=== PATIENT | male | born 1980 | race Caucasian/White ===

== ENCOUNTER 2022-04-13 11:04 | Outpatient (CLI) | payer OTHER, SELFPAY ==
--- OUTSIDE RECORDS SUMMARY | 2022-04-13 11:06 | XMS_ITS | Encounter Summary ---
:1980 Author Organization [employer] Address [address] [place] [address] Care Team Providers Name Role Phone No Primary/Referring, Phy Primary Care Provider Unavailable Reason for Visit Reason Onset Date Comments Refill 12/18/2015 CITALOPRAM, BUPROPIO N Encounter Details Date Type Department Care Team Description 12/18/2015 Refill [facility] Dayana Tomas MD Refill (CITALOPRAM, [address] [facility] BUPROPION) [place], [place] [address] [place], [place] [phone] (Wo rk) Social History Tobacco Use Types Packs/Day Years Used Date Smoking Tobacco: Former Smokeless Tobacco: Former Qu it: 07/16/2011 Alcohol Use Standard Drinks/Week Comments Yes 0 (1 standard drink = 0.6 oz pure alcoho l) Sex Assigned at Date Recorded Not on file documented as of this encounter Nursing Notes Carmen Perry RN - 12/19/2015 9:51 AM CDT 1) will send to provider to review as patient has not f/u as requested. OK for refill? Carmen Perry RN 12/19/2015, 9:51 AM Interface, Out Surescripts Prov Query - 12/18/2015 6:58 PM CDT buPROPion (AKA WELLBUTRIN XL) 300 MG 24 hour release tablet Protocol: Antidepressants and Antianxiety -> Refill x 3 months (courtesy refill. overdue for an office visit) Last qualifying visit: 10/03/2014 (in Family Practice) Next scheduled visit: None Last ordered: 05/31/2015 (201 days ago) QTY: 90, Refills: 1, Sig: take 1 tablet by mouth every day (changed but equivalent) Age: 35 Powered by [employer], Reference: [id number], 12/18/2015 6:58:09 PM CDT, Pool: STEPHANIE CASIANO RN ([id number]) citalopram (AKA CELEXA) 20 MG tablet Protocol: Antidepressants and Antianxiety -> Refill x 3 months (courtesy refill. overdue for an office visit) Last qualifying visit: 10/03/2014 (in Family Practice) Next scheduled visit: None Last ordered: 11/29/2015 (19 days ago) QTY: 15, Refills: 0, Sig: take 1 tab by mouth daily. to be seen by new primary md, already notified in february. (unchanged) Age: 35 Powered by [employer], Reference: [id number], 12/18/2015 6:58:09 PM CDT, Pool: STEPHANIE CASIANO RN ([id number]) Afsaneh Ware - 12/18/2015 6:57 PM CDT PATIENT REQUESTING 90 DAYS SUPPLY documented in this encounter Plan of Treatment Not on filedocumented as of this encounter Visit Diagnoses Not on filedocumented in this encounter Care Teams Inside Account Executive Relationship Specialty Start Date End Date No Primary/Referring, Jocelyny PCP - General 05/03/15 documented as of this encounter
--- OUTSIDE RECORDS SUMMARY | 2022-04-13 11:06 | XMS_ITS | Encounter Summary ---
:1980 Author Organization [employer] Address [address] [place] [address] Care Team Providers Name Role Phone Unassigned, Provider Primary Care Provider Unavailable Reason for Visit Reason Comments Refill Encounter Details Date Type Department Care Team Description 02/25/[address] [facility] [place] Malave MD Refill [address] [facility] [address] [place], [place] [address] [address] [id number] [phone] [place] [address] Social History Tobacco Use Types Packs/Day Years Used Date Smoking Tobacco: Former Smokeless Tobacco: Former Qu it: 07/16/2011 Alcohol Use Standard Drinks/Week Comments Yes 0 (1 standard drink = 0.6 oz pure alcoho l) Sex Assigned at Date Recorded Not on file documented as of this encounter Nursing Notes Susan Soto LPN - 02/25/2015 8:26 AM CDT unassigned; will route to Dr. Thom GUPTA. Thank you, Susan Soto LPN 02/25/2015, 8:27 AM Interface, Out Surescripts Prov Query - 02/25/2015 7:17 AM CDT buPROPion (AKA WELLBUTRIN XL) 300 MG 24 hour release tablet [Pharmacy Med Name: BUPROPION-XL 300MG TAB 24HR] - VIOLATION: Medications in this protocol cannot be delegated. - PROTOCOL: Antidepressants - LAST QUALIFYING VISIT IN FAMILY PRACTICE: 10/03/2014 - NEXT SCHEDULED VISIT: None - LAST REFILLED ON: 11/26/2014, QTY: 90, Refills: 0, Sig: take one tablet by mouth every day (unchanged) Powered by [employer], Reference: [id number], 02/25/2015 7:17:13 AM CDT, Pool: STEPHANIE CASIANO RN ([id number]) documented in this encounter Plan of Treatment Not on filedocumented as of this encounter Visit Diagnoses Not on filedocumented in this encounter Care Teams Payroll Supervisor Relationship Specialty Start Date End Date Unassigned, Provider PCP - General Unknown Physician 11/26/14 05/02/15 [address] [place] [address] documented as of this encounter
--- OUTSIDE RECORDS SUMMARY | 2022-04-13 11:06 | XMS_ITS | Encounter Summary ---
:1980 Author Organization [employer] Address [address], [place] [address] Care Team Providers Name Role Phone Ronan Goel MD Primary Care Provider [phone] Reason for Visit Reason Comments Refill amLODIPine (NORVASC) 5 MG ta blet [Pharmacy Med Name: AMLODIPINE BESYLATE 5MG TABLETS] Encounter Details Date Type Department Care Team Description 04/28/2020 Refill [facility] Suhas Lyon MD Refill (amLODIPine Practice [address] (NORVASC) 5 MG tablet [address] [place] [address] [Pharmacy Med Name: [place], [place] [address] AMLODIPINE BESYLATE 5MG [phone] TABLETS]) Social History Tobacco Use Types Packs/Day Years Used Date Smoking Tobacco: Former Smokeless Tobacco: Former Qu it: 07/16/2011 Alcohol Use Standard Drinks/Week Comments Yes 0 (1 standard drink = 0.6 oz pure alcoho l) Sex Assigned at Date Recorded Not on file documented as of this encounter Nursing Notes Interface, Out Surescripts Prov Query - 04/28/2020 11:15 AM CDT amLODIPine (NORVASC) 5 MG tablet [Pharmacy Med Name: AMLODIPINE BESYLATE 5MG TABLETS] Miscellaneous - 12 Month Visit -> An office visit is overdue (performed 20 months ago, required every 12 months). Last qualifying visit: 09/06/2018 (with SUHAS LYON) (A more recent visit (in Family Practice with RONAN GOEL) was found) Next scheduled visit: None Last ordered by SUHAS LYON S: 03/27/2020 (32 days ago) QTY: 30, Refills: 0, Sig: take 1 tablet by mouth daily. (unchanged) Powered by [employer], Reference: [id number], 04/28/2020 11:15:38 AM CDT, Pool: STEPHANIE CASIANO RN ([id number]) documented in this encounter Plan of Treatment Not on filedocumented as of this encounter Visit Diagnoses Not on filedocumented in this encounter Care Teams Plasterer Rough Relationship Specialty Start Date End Date Ronan Goel MD PCP - General Family Practice 04/13/18 06/12/20 [phone] (Work) documented as of this encounter
--- OUTSIDE RECORDS SUMMARY | 2022-04-13 11:06 | XMS_ITS | Encounter Summary ---
:1980 Author Organization [facility] Address [address] [place] [address] Care Team Providers Name Role Phone No Primary/Referring, Phy Primary Care Provider Unavailable Reason for Visit Reason Comments QUESTIONS, GENERAL Encounter Details Date Type Department Care Team Description 03/17/2016 [facility] QUESTIONS, GENERAL [address] [place], [place] [address] [place], [place] [phone] (Wo rk) Social History Tobacco Use Types Packs/Day Years Used Date Smoking Tobacco: Former Smokeless Tobacco: Former Qu it: 07/16/2011 Alcohol Use Standard Drinks/Week Comments Yes 0 (1 standard drink = 0.6 oz pure alcoho l) Sex Assigned at Date Recorded Not on file documented as of this encounter Progress Notes Gabriel Christensen MD - 03/17/2016 3:49 PM CDT Addended by: GABRIEL CHRISTENSEN on: 03/17/2016 03:49 PM Modules accepted: Orders, Medications documented in this encounter Nursing Notes Gabriel Christensen MD - 03/17/2016 3:47 PM CDT Patient looking for an alternative to Zantac and omeprazole. The omeprazole does help with the symptoms but does not want the long-term consequences of being on it. Told him we could try Pepcid and seeif that helps otherwise we may have to do a PPI. Anna Urbano CMA - 03/17/2016 3:33 PM CDT I spoke to pt and he would like to take something other than Zantac 2x per day for his acid reflux. Pt states that the Zantac wasn't working for him at all so he went back to the omeprazole, which works great, but he doesn't want to take it care home. Anna Urbano CMA 03/17/2016, 3:36 PM Mag Rojas - 03/17/2016 1:35 PM CDT Patient would like to discuss his medication Zantac ~ did not elaborate.OK to leave detail message. Mag Rojas documented in this encounter Plan of Treatment Not on filedocumented as of this encounter Visit Diagnoses Not on filedocumented in this encounter Care Teams Plastic Bubble Packer Relationship Specialty Start Date End Date No Primary/Referring, Phy PCP - General 05/03/15 documented as of this encounter
--- OUTSIDE RECORDS SUMMARY | 2022-04-13 11:06 | XMS_ITS | Encounter Summary ---
:1980 Author Organization [employer] Address [address] [place] [address] Care Team Providers Name Role Phone No Primary/Referring, Phy Primary Care Provider Unavailable Encounter Details Date Type Department Care Team Description 12/18/2015 Notes/Orders [facility] No Encounter for long-term [address] Primary/Referrin (current) use of [place], [place] [address] g, Phy medications (Primary [phone] Dx) Social History Tobacco Use Types Packs/Day Years Used Date Smoking Tobacco: Former Smokeless Tobacco: Former Qu it: 07/16/2011 Alcohol Use Standard Drinks/Week Comments Yes 0 (1 standard drink = 0.6 oz pure alcoho l) Sex Assigned at Date Recorded Not on file documented as of this encounter Progress Notes Niall Ware CMA - 12/19/2015 8:58 AM CDT Pt notified. Niall Ware CMA 12/19/2015, 8:58 AM documented in this encounter Nursing Notes Interface, Out Surescripts Prov Query - 12/18/2015 6:58 PM CDT SCHEDULE THE FOLLOWING: - OFFICE VISIT BY: Now (Due as of 09/28/2015 for multiple medications including citalopram (AKA CELEXA) 20 MG tablet) - LAST QUALIFYING VISIT IN FAMILY PRACTICE: 10/03/2014 - NEXT SCHEDULED VISIT: None - NEXT LAB APPOINTMENT: None We recently received a refill request on one of your medications. While reviewing your chart, we noticed that you are going to be due for a visit with your provider within the next 3 months. You can schedule your appointment online at [employer] or by calling the appointment center at the phone number listed above. Thank you for choosing [facility]. The [facility] Nurses Powered by [employer], Reference: [id number], 12/18/2015 6:58:09 PM CDT, Pool: STEPHANIE CASIANO RN ([id number]) documented in this encounter Plan of Treatment Not on filedocumented as of this encounter Visit Diagnoses Diagnosis Encounter for long-term (current) use of medications - Primary Encounter for long-term (current) use of other medications documented in this encounter Care Teams Coal Mine Inspector Relationship Specialty Start Date End Date No Primary/Referring, Sahra PCP - General 05/03/15 documented as of this encounter
--- OUTSIDE RECORDS SUMMARY | 2022-04-13 11:06 | XMS_ITS | Encounter Summary ---
:1980 Author Organization [employer] Address [address] [place] [address] Care Team Providers Name Role Phone Ronan Goel MD Primary Care Provider Reason for Visit Reason Comments Refill buPROPion (WELLBUTRIN XL) 30 0 MG 24 hour release tablet [Pharmacy Med Name: BUPROPION XL 300MG TABLETS]; citalopram (CELEXA) 20 MG tablet [Pharmacy Med Name: CITALOPRAM 20MG TABLET S] Encounter Details Date Type Department Care Team Description 08/19/2018 Refill [facility] Ronan Goel, Refill (buPROPion Practice (WELLBUTRIN XL) 300 MG [address] 24 hour release tablet [place], [place] [address] [place] [address] [Pharmacy Med Name: [phone] (Wo rk) BUPROPION XL 300MG TABLETS]; citalopram (CELEXA) 20 MG tablet [Pharmacy Med N jackson: CITALOPRAM 20MG TABLETS]) Social History Tobacco Use Types Packs/Day Years Used Date Smoking Tobacco: Former Smokeless Tobacco: Former Qu it: 07/16/2011 Alcohol Use Standard Drinks/Week Comments Yes 0 (1 standard drink = 0.6 oz pure alcoho l) Sex Assigned at Date Recorded Not on file documented as of this encounter Nursing Notes Dagoberto Freeman R - 08/22/2018 1:27 PM CST Medication Refill - Overdue Visit Called patient, was: Unable to reach patient 1st call attempted. Left message to call back. Dagoberto Freeman ULTING TECHNICAL MANAGER Annalisa Murray RN - 08/22/2018 9:36 AM CST Further Assistance Needed on Refill from Cinnamon Grinder Patient is overdue for Office visit. Please call patient to schedule a Office Visit and document using .RAUDEL. After attempting to schedule patient: If appointment scheduled: Please route to: Primary Care: Refill boilerhouse mechanic Specialty Care: Refill boilerhouse mechanic/Care Team Pool If unable to schedule appointment: Please route to: Clinician/Care Team Pool Requested Prescriptions Pending Prescriptions Disp Refills ??? buPROPion (WELLBUTRIN XL) 300 MG 24 hour release tablet [Pharmacy Med Name: BUPROPION XL 300MG TABLETS] 90 Tablet 0 Sig: TAKE 1 TABLET BY MOUTH DAILY ??? citalopram (CELEXA) 20 MG tablet [Pharmacy Med Name: CITALOPRAM 20MG TABLETS] 90 Tablet 0 Sig: TAKE 1 TABLET BY MOUTH DAILY Annalisa Murray RN 08/22/2018, 9:36 AM ULTING TECHNICAL MANAGER Interface, Out Surescripts Prov Query - 08/19/2018 10:20 AM CST buPROPion (WELLBUTRIN XL) 300 MG 24 hour release tablet [Pharmacy Med Name: BUPROPION XL 300MG TABLETS] Antidepressants and Antianxiety -> An office visit is overdue (performed over 16 months ago, required every 12 months). Last qualifying visit: 04/21/2017 (in [facility]) Next scheduled visit: None Last ordered by RONAN GOEL A: 05/19/2018 (92 days ago) QTY: 90, Refills: 0, Sig: take 1 tablet by mouth daily (unchanged) Age: 37 Powered by [employer], Reference: [id number], 08/19/2018 10:20:50 AM Rohan RÍOS: STEPHANIE CASIANO RN ([id number]) citalopram (CELEXA) 20 MG tablet [Pharmacy Med Name: CITALOPRAM 20MG TABLETS] Antidepressants and Antianxiety -> An office visit is overdue (performed over 16 months ago, required every 12 months). Last qualifying visit: 04/21/2017 (in [facility]) Next scheduled visit: None Last ordered by RONAN GOEL: 05/19/2018 (92 days ago) QTY: 90, Refills: 0, Sig: take 1 tablet by mouth daily (unchanged) Age: 37 Powered by [facility], Reference: [id number], 08/19/2018 10:20:50 AM Rohan RÍOS: STEPHANIE CASIANO RN ([id number]) ULTING TECHNICAL MANAGER documented in this encounter Plan of Treatment Not on filedocumented as of this encounter Visit Diagnoses Not on filedocumented in this encounter Care Teams Investigator Operator Relationship Specialty Start Date End Date Ronan Goel MD PCP - General Family Practice 04/13/18 06/12/20 documented as of this encounter
--- OUTSIDE RECORDS SUMMARY | 2022-04-13 11:06 | XMS_ITS | Encounter Summary ---
:1980 Author Organization [employer] Address [address] [place] [address] Care Team Providers Name Role Phone No Primary/Referring, Phy Primary Care Provider Unavailable Reason for Visit Reason Comments Refill Encounter Details Date Type Department Care Team Description 05/31/2015 Refill [facility] Dunham MD Refill [address] [place], [place] [address] [place] [address] [phone] (Wo rk) Social History Tobacco Use Types Packs/Day Years Used Date Smoking Tobacco: Former Smokeless Tobacco: Former Qu it: 07/16/2011 Alcohol Use Standard Drinks/Week Comments Yes 0 (1 standard drink = 0.6 oz pure alcoho l) Sex Assigned at Date Recorded Not on file documented as of this encounter Nursing Notes Thao Castillo RN - 05/31/2015 11:11 AM CDT per standing order Thao Castillo RN Interface, Out Surescripts Prov Query - 05/31/2015 11:04 AM CDT buPROPion (AKA WELLBUTRIN XL) 300 MG 24 hour release tablet [Pharmacy Med Name: BUPROPION XL 300MG TABLETS] - REFILL: 6 months - PROTOCOL: Antidepressants and Antianxiety - RATIONALE: This refill should last until the patient is due for an office visit. - LAST QUALIFYING VISIT IN FAMILY PRACTICE: 10/03/2014 - NEXT SCHEDULED VISIT: None - LAST REFILLED ON: 02/25/2015, QTY: 90, Refills: 0, Sig: take one tablet by mouth every day (changed but equivalent) - Age: 34.0 Powered by [employer], Reference: [id number], 05/31/2015 11:04:14 AM CDT, Pool: STEPHANIE CASIANO RN ([id number]) documented in this encounter Plan of Treatment Not on filedocumented as of this encounter Visit Diagnoses Not on filedocumented in this encounter Care Teams Brand Marketing Specialist Relationship Specialty Start Date End Date No Primary/Referring, Sahra PCP - General 05/03/15 documented as of this encounter
--- OUTSIDE RECORDS SUMMARY | 2022-04-13 11:06 | XMS_ITS | Encounter Summary ---
:1980 Author Organization [facility] Address [address] [place] [address] Care Team Providers Name Role Phone Suhas [place] MD Primary Care Provider Encounter Details Date Type Department Care Team Description 12/16/2016 Refill Order [facility] ctice No Primary/Referring, [address] [place], [place] [address] Social History Tobacco Use Types Packs/Day Years Used Date Smoking Tobacco: Former Smokeless Tobacco: Former Qu it: 07/16/2011 Alcohol Use Standard Drinks/Week Comments Yes 0 (1 standard drink = 0.6 oz pure alcoho l) Sex Assigned at Date Recorded Not on file documented as of this encounter Plan of Treatment Not on filedocumented as of this encounter Visit Diagnoses Diagnosis Encounter for long-term (current) use of medications - Primary Encounter for long-term (current) use of other medications documented in this encounter Care Teams Animal Technician Relationship Specialty Start Date End Date Suhas Lyon MD PCP - General 06/13/20 [address] [place] [address] documented as of this encounter
--- OUTSIDE RECORDS SUMMARY | 2022-04-13 11:06 | XMS_ITS | Encounter Summary ---
:1980 Author Organization [employer] Address [address] [place] [address] Care Team Providers Name Role Phone Ronan Goel MD Primary Care Provider [phone] Reason for Visit Reason Comments Refill buPROPion (WELLBUTRIN XL) 30 0 MG 24 hour release tablet [Pharmacy Med Name: BUPROPION XL 300MG TABLETS]; citalopram (CELEXA) 20 MG tablet [Pharmacy Med Name: CITALOPRAM 20MG TABLET S] Encounter Details Date Type Department Care Team Description 05/18/2018 Refill [facility] Ronan Goel, Refill (buPROPion Practice (WELLBUTRIN XL) 300 MG [address] 24 hour release tablet [place], [place] [address] [place] [address] [Pharmacy Med Name: [phone] (Wo rk) BUPROPION XL 300MG TABLETS]; citalopram [...] documented as of this encounter Nursing Notes Giselle Mauro RN - 05/19/2018 9:12 AM CDT Per standing order Giselle Mauro RN Interface, Out Surescripts Prov Query - 05/18/2018 10:31 AM CDT buPROPion (WELLBUTRIN XL) 300 MG 24 hour release tablet [Pharmacy Med Name: BUPROPION XL 300MG TABLETS] Antidepressants and Antianxiety -> Refill x 3 months (courtesy refill. overdue for an office visit) Last [facility]: [facility] Next scheduled visit: None Last ordered by RONAN GOEL A: 04/13/2018 (35 days ago) QTY: 30, Refills: 0, Sig: take 1 tablet by mouth daily (unchanged) Age: 37 Powered by [facility], Reference: [id number], 05/18/2018 10:31:36 AM CDT, Pool: STEPHANIE CASIANO RN ([id number]) citalopram (CELEXA) 20 MG tablet [Pharmacy Med Name: CITALOPRAM 20MG TABLETS] Antidepressants and Antianxiety -> Refill x 3 months (courtesy refill. overdue for an office visit) Last qualifying visit: [facility]/2017 [facility] Next scheduled visit: None Last ordered by RONAN GOEL A: 04/13/2018 (35 days ago) QTY: 30, Refills: 0, Sig: take 1 tablet by mouth daily (unchanged) Age: 37 Powered by [employer], Reference: [id number], 05/18/2018 10:31:36 AM CDT, Pool: STEPHANIE CASIANO RN ([id number]) documented in this encounter Plan of Treatment Not on filedocumented as of this encounter Visit Diagnoses Not on filedocumented in this encounter Care Teams Dairy Husbandman Relationship Specialty Start Date End Date Ronan Goel MD PCP - General Family Practice 04/13/18 06/12/20 [phone] (work) documented as of this encounter
--- OUTSIDE RECORDS SUMMARY | 2022-04-13 11:06 | XMS_ITS | Encounter Summary ---
:1980 Author Organization [employer] Address [address], [place] [address] Care Team Providers Name Role Phone Unassigned, Provider Primary Care Provider Unavailable Reason for Visit Reason Comments Refill Encounter Details Date Type Department Care Team Description [facility] [address] [place], [place] [address] Social History Tobacco Use Types Packs/Day Years Used Date Smoking Tobacco: Former Smokeless Tobacco: Former Qu it: 07/16/2011 Alcohol Use Standard Drinks/Week Comments Yes 0 (1 standard drink = 0.6 oz pure alcoho l) Sex Assigned at Date Recorded Not on file documented as of this encounter Nursing Notes Elyssa Ware RN - 11/26/2014 3:12 PM CDT Informed patient of Dr. Krishnamurthy's message below. Informed patient Ramin is no longer with [facility], advised patient to schedule appt with another primary care provider beginning of February to establish care with a new provider, follow up, and get refills. Patient verbalized understanding and agrees with plan. Elyssa Ware RN 11/26/2014, 3:14 PM [place] Krishnamurthy MD - 11/26/2014 12:42 PM CDT Patient on behavioral health, medication needs to be seen every six months. Last visit was in August. History be seen in February. Prescription refilled to last through February Please notify the patient Susan Soto LPN - 11/26/2014 8:25 AM CDT unassigned; will route to Dr. Yessy GUPTA. Thank you, Susan Soto LPN 11/26/2014, 8:25 AM Interface, Out [employer] Query - 11/26/2014 8:23 AM CDT buPROPion (AKA WELLBUTRIN XL) 300 MG 24 hour release tablet [Pharmacy Med Name: BUPROPION-XL 300MG TAB 24HR] - VIOLATION: Medications in this protocol cannot be delegated. - PROTOCOL: Antidepressants - LAST QUALIFYING VISIT IN FAMILY PRACTICE: 10/03/2014 - NEXT SCHEDULED VISIT: None - LAST REFILLED ON: 2013, QTY: 90, Refills: 3, Sig: take one tablet by mouth every day (unchanged) Powered by [employer], Reference: [id number], 11/26/2014 8:23:14 AM CDT, Pool: SETPHANIE CASIANO RN ([id number]) documented in this encounter Plan of Treatment Not on filedocumented as of this encounter Visit Diagnoses Not on filedocumented in this encounter Care Teams Occupational Therapy Department Chair Relationship Specialty Start Date End Date Unassigned, Provider PCP - General Unknown Physician 11/26/14 05/02/[address] [facility] [place] [address] documented as of this encounter
--- OUTSIDE RECORDS SUMMARY | 2022-04-13 11:06 | XMS_ITS | Encounter Summary ---
:1980 Author Organization [employer] Address [address] [place] [address] Care Team Providers Name Role Phone Ronan Boateng MD Primary Care Provider Encounter Details Date Type Department Care Team Description 08/19/2018 Refill Order [facility] Ronan Boateng, [facility] MD [address] [facility] [place], [place] [address] [place] [address] [phone] (Wo rk) Social History Tobacco Use Types Packs/Day Years Used Date Smoking Tobacco: Former Smokeless Tobacco: Former Qu it: 07/16/2011 Alcohol Use Standard Drinks/Week Comments Yes 0 (1 standard drink = 0.6 oz pure alcoho l) Sex Assigned at Date Recorded Not on file documented as of this encounter Nursing Notes Jacqueline Godoy RMA - 08/19/2018 3:41 PM CST Message has been sent. EBONIE Holm 08/19/2018, 3:41 PM TAR ROOFER Interface, Out Surescripts Prov Query - 08/19/2018 10:20 AM CST SCHEDULE THE FOLLOWING: - OFFICE VISIT BY: Now (Due as of 04/16/2018 for multiple medications including citalopram (CELEXA) 20 MG tablet) - LAST QUALIFYING VISIT IN [place] [facility]: 04/21/2017 - NEXT SCHEDULED VISIT: None - NEXT LAB APPOINTMENT: None We recently received a refill request on one of your medications. While reviewing your chart, we noticed that you are going to be due for a visit with your provider within the next 3 months. You can schedule your appointment online at [employer] or by calling the appointment center at the phone number listed above. Thank you for choosing [facility] Powered by [employer], Reference: [id number], 08/19/2018 10:20:50 AM HOT TAR ROOFER, Pool: STEPHANIE CASIANO RN ([id number]) TAR ROOFER documented in this encounter Plan of Treatment Not on filedocumented as of this encounter Visit Diagnoses Diagnosis Encounter for long-term (current) use of medications - Primary Encounter for long-term (current) use of other medications documented in this encounter Care Teams Rn Navigator Relationship Specialty Start Date End Date Ronan Boateng MD PCP - General Family Practice 04/13/18 06/12/20 [phone] (Work) documented as of this encounter
--- OUTSIDE RECORDS SUMMARY | 2022-04-13 11:06 | XMS_ITS | Encounter Summary ---
:1980 Author Organization [employer] Address [address], [place] [address] Care Team Providers Name Role Phone Ronan Boateng MD Primary Care Provider [phone] Reason for Visit Reason Comments Refill buPROPion (WELLBUTRIN XL) 30 0 MG 24 hour release tablet [Pharmacy Med Name: BUPROPION XL 300MG TABLETS]; citalopram (CELEXA) 20 MG tablet [Pharmacy Med Name: CITALOPRAM 20MG TABLET S] Encounter Details Date Type Department Care Team Description 03/05/[address] [facility] Suhas Lyon MD Refill (buPROPion Practice [address] (WELLBUTRIN XL) 300 MG [address] [place] [address] 24 hour release tablet [place], [place] [address] [Pharmacy Med Name: [phone] BUPROPION XL 300MG TABLETS]; cital opram (CELEXA) 20 MG tablet [Pharmacy Med N jackson: CITALOPRAM 20MG TABLETS]) Social History Tobacco Use Types Packs/Day Years Used Date Smoking Tobacco: Former Smokeless Tobacco: Former Qu it: 07/16/2011 Alcohol Use Standard Drinks/Week Comments Yes 0 (1 standard drink = 0.6 oz pure alcoho l) Sex Assigned at Date Recorded Not on file documented as of this encounter Nursing Notes Estella Lazaro - 03/07/2019 10:09 AM CDT Medication Refill - Overdue Visit Called patient, was: Successful in reaching patient Patient is due for: Office Visit [Computer Systems Manager: We recently received a refill request for one of your medications. In order to ensure your medication is safe and effective, your clinician needs to see you at least yearly for an office visit. May I help you schedule that office visit?] Patient scheduled appointment on: 03/08 @ 3:20 Do you have enough medication to last until your appointment? Unknown [Computer Systems Manager: I will request a one-time limited quantity to last until then.] Is the selected pharmacy Mail Order? No Estella Lazaro Please route to: Rohan specified in documentation below Carmen Alarcon RN - 03/06/2019 4:56 PM CDT Further Assistance Needed on Refill from Call Out Operator Patient is overdue for Office visit. 09/06/18 OV . Follow-Up: recommended follow-up in one month in our clinic or with a provider in [place] for repeat of blood pressure and to check cholesterol/renal function (did not have time to do so today) ?? Please call patient to schedule a Office Visit and document using .RAUDEL. After attempting to schedule patient: Please route to: Clinician/Care Team Rohan Requested Prescriptions Pending Prescriptions Disp Refills ??? buPROPion (WELLBUTRIN XL) 300 MG 24 hour release tablet [Pharmacy Med Name: BUPROPION XL 300MG TABLETS] 90 Tablet 1 Sig: TAKE 1 TABLET BY MOUTH DAILY ??? citalopram (CELEXA) 20 MG tablet [Pharmacy Med Name: CITALOPRAM 20MG TABLETS] 90 Tablet 1 Sig: TAKE 1 TABLET BY MOUTH DAILY Carmen Alarcon RNCentral Refills03/06/20194:57 PM Interface, Out Surescripts Prov Query - 03/05/2019 11:31 AM CDT buPROPion (WELLBUTRIN XL) 300 MG 24 hour release tablet [Pharmacy Med Name: BUPROPION XL 300MG TABLETS] Miscellaneous - 12 Month Visit -> Refill x 6 months, qty: 90, refills: 1 (until due for an office visit) Last qualifying visit: 09/06/2018 ([facility]) Next scheduled visit: None Last ordered by SUHAS LYON S: 12/07/2018 (88 days ago) QTY: 90, Refills: 0, Sig: take 1 tablet by mouth daily. (unchanged) Powered by [employer], Reference: [id number], 03/05/2019 11:31:57 AM Rohan GARVIN: STEPHANIE CASIANO RN ([id number]) citalopram (CELEXA) 20 MG tablet [Pharmacy Med Name: CITALOPRAM 20MG TABLETS] Miscellaneous - 12 Month Visit -> Refill x 6 months, qty: 90, refills: 1 (until due for an office visit) Last qualifying visit: 09/06/2018 (in [facility]) Next scheduled visit: None Last ordered by SUHAS LYON S: 12/07/2018 (88 days ago) QTY: 90, Refills: 0, Sig: take 1 tablet by mouth daily. (unchanged) Powered by [employer], Reference: [id number], 03/05/2019 11:31:57 AM VIRGIE, Rohan: STEPHANIE CASIANO RN ([id number]) documented in this encounter Plan of Treatment Not on filedocumented as of this encounter Visit Diagnoses Not on filedocumented in this encounter Care Teams Community Health Coordinator Relationship Specialty Start Date End Date Ronan Boateng MD PCP - General Family Practice 04/13/18 06/12/20 documented as of this encounter
--- OUTSIDE RECORDS SUMMARY | 2022-04-13 11:06 | XMS_ITS | Encounter Summary ---
:1980 Author Organization [facility] Address [address], [place] [address] Care Team Providers Name Role Phone Ronan Goel MD Primary Care Provider [phone] Reason for Visit Reason Onset Date Comments Refill 08/29/2018 Citalopram 20mg Encounter Details Date Type Department Care Team Description 08/29/2018 Refill [facility] Ronan Goel, Refill (Citalopram Practice 20mg ) [address] [facility] [place], [place] [address] [place] [address] [phone] (Wo rk) Social History Tobacco Use Types Packs/Day Years Used Date Smoking Tobacco: Former Smokeless Tobacco: Former Qu it: 07/16/2011 Alcohol Use Standard Drinks/Week Comments Yes 0 (1 standard drink = 0.6 oz pure alcoho l) Sex Assigned at Date Recorded Not on file documented as of this encounter Nursing Notes Dagoberto Freeman - 08/31/2018 1:12 PM CST Patient will call back at another time. Dagoberto Freeman 08/31/2018, 1:13 PM ECTIVE SIGNAL INSTALLER HELPER Annalisa Murray RN - 08/30/2018 4:57 PM CST Further Assistance Needed on Refill from Millinery Blocker Patient is overdue for Office visit. Please call patient to schedule a Office Visit and document using .RAUDEL. After attempting to schedule patient: If appointment scheduled: Please route to: Primary Care: Refill NATALIE Madrigal Specialty Care: Refill hide inspector/Care Team Rohan If unable to schedule appointment: Please route to: Clinician/Care Team Rohan Requested Prescriptions Pending Prescriptions Disp Refills ??? citalopram (CELEXA) 20 MG tablet 90 Tablet 0 Sig: Take 1 Tablet by mouth daily. Annalisa Murray RN 08/30/2018, 4:57 PM ECTIVE SIGNAL INSTALLER HELPER Interface, Out [employer] Query - 08/29/2018 12:16 PM CST citalopram (CELEXA) 20 MG tablet Antidepressants and Antianxiety -> An office visit is overdue (performed 17 months ago, required every 12 months). Last qualifying visit: 04/21/2017 (in [facility]) Next scheduled visit: None Last ordered by RONAN GOEL A: 05/19/2018 (102 days ago) QTY: 90, Refills: 0, Sig: take 1 tablet by mouth daily (changed but equivalent) Age: 37 Powered by [employer], Reference: [id number], 08/29/2018 12:16:45 PM PROTECTIVE SIGNAL INSTALLER HELPERRohan: STEPHANIE CASIANO RN ([id number]) ECTIVE SIGNAL INSTALLER HELPER documented in this encounter Plan of Treatment Not on filedocumented as of this encounter Visit Diagnoses Not on filedocumented in this encounter Care Teams Transit Mixer Driver Relationship Specialty Start Date End Date Ronan Goel MD PCP - General Family Practice 04/13/18 06/12/20 documented as of this encounter
--- OUTSIDE RECORDS SUMMARY | 2022-04-13 11:06 | XMS_ITS | Encounter Summary ---
:1980 [facility] Address [address] [place] [address] Care Team Providers Name Role Phone Chava Christensen MD Primary Care Provider Reason for Referral Consult/Transfer Care (Routine) - Closed Specialty Diagnoses / Procedures Referred By Contact Refer red To Contact Diagnoses Elevated blood pressure reading Chava Christensen MD [address] [place], [place] [address] Referral ID Status Reason Start Date Expiration Date Visits Requ ested Visits Authorized [id number] Closed 04/21/2017 07/21/2018 1 1 Scheduling Instructions Your provider has recommended an appoint ment with a [employer] nurse. A mission planner will contact you within the next 3 in days to assist you in setting up this appointment. Reason for Visit Reason Comments MEDICATION CHECK bupropion, citalopram Refill Health Maintanence Declined hiv, pneumo, lipid, flu BP,ELEVATED first check 137/90 Encounter Details Date Type Department Care Team Description 04/21/2017 Office Visit [facility] Chava Christensen M D Anxiety disorder, unspecified type (Prim cassie Dx); Practice [address] Elevated blood pressure reading; [address] [facility] [place], [place] Depression, recurrent ([facility]) [place], [place] [phone] Social History Tobacco Use Types Packs/Day Years Used Date Smoking Tobacco: Former Smokeless Tobacco: Former Qu it: 07/16/2011 Alcohol Use Standard Drinks/Week Comments Yes 0 (1 standard drink = 0.6 oz pure alcoho l) Sex Assigned at Date Recorded Not on file documented as of this encounter Last Filed Vital Signs Vital Sign Reading Time Taken Comments Blood Pressure 160/100 04/21/2017 2:33 PM CDT Pulse 71 04/21/2017 2:00 PM CDT Temperature - - Respiratory Rate - - Oxygen Saturation - - Inhaled Oxygen Concentration - - Weight 104.8 kg (231 lb) 04/21/2017 2:00 PM CDT Height - - Body Mass Index 33.15 12/19/2015 4:25 PM CDT documented in this encounter Patient Instructions Patient InstructionsChava Christensen MD - 04/21/2017 2:00 PM CDT documented in this encounter Progress Notes Chava Christensen MD - 04/21/2017 2:00 PM CDT Subjective: Patient presents for follow up of his depression and anxiety. Has been on Celexa and Wellbutrin for the past year without any issues complaints or side effects. Seems be working for his symptoms. His blood pressure was a 137/90 by the nurse and when I checked it again and it went up likelydue to anxiety patient denies any chest pain shortness of breath. BP (!) 160/100 Pulse 71 Wt 231 lb (104.8 kg) BMI 33.15 kg/m2 General no acute distress CV regular rate rhythm. Lungs clear auscultation bilaterally. Mood and affect appropriate Assessment plan 1. Depression and anxiety continue Celexa and Wellbutrin. Follow up 6-12 months. 2. elevated blood pressure partly white coat hypertension. Nurse blood pressure visit two weeks. If elevated consider starting him on medication. Would probably start out with hydrochlorothiazide 12.5 mg Chava Christensen MD This note created using speech-recognition software and may contain unintended word substitutions. documented in this encounter Plan of Treatment Scheduled Referrals Name Type Priority Associated Diagnoses Order S chedule Nurse Appointment Referral Routine Elevated blood pressure Ordered: 04/21/2017 Adult/Peds reading documented as of this encounter Visit Diagnoses Diagnosis Anxiety disorder, unspecified type ([facility]) - Primary Elevated blood pressure reading Elevated blood pressure reading without diagnosis of hypertension Depression, recurrent ([facility]) Major depressive disorder, recurrent epi sode, unspecified documented in this encounter Care Teams Camp Dining Room Attendant Relationship Specialty Start Date End Date Chava Christensen MD PCP - General Family Practice 12/22/16 04/12/[address] [place] [address] documented as of this encounter
--- OUTSIDE RECORDS SUMMARY | 2022-04-13 11:06 | XMS_ITS | Encounter Summary ---
:1980 Author Organization [facility] Address [address] [place] [address] Care Team Providers Name Role Phone Ramin Edge PA-C Primary Care Provider Unavailable Encounter Details Date Type Department Care Team Description 10/03/2014 Orders Only [facility] Localized superficial [address] swelling, mass, or lump [place], [place] [address] Social History Tobacco Use Types Packs/Day Years Used Date Smoking Tobacco: Former Smokeless Tobacco: Former Qu it: 07/16/2011 Alcohol Use Standard Drinks/Week Comments Yes 0 (1 standard drink = 0.6 oz pure alcoho l) Sex Assigned at Date Recorded Not on file documented as of this encounter Plan of Treatment Not on filedocumented as of this encounter Procedures Procedure Name Priority Date/Time Associated Diagnosis Comme nts COMPLETE BLOOD Waiting 10/03/2014 11:44 AM Localized Result s for this COUNT-NO DIFF TRUST ADMINISTRATOR superficial procedure are in swelling, mass, or the resul ts lump section. documented in this encounter Results HEMOGRAM/PLTS (10/03/2014 11:44 AM TRUST ADMINISTRATOR) P athologist Signature WBC 8.0 4.0 - 11.0 [facility] k/ul RBC 5.31 4.5 - 5.9 [facility] M/ul Hemoglobin 16.5 13.5 - 17.5 [facility] g/dl HCT 46.9 41.0 - 53.0 [facility] % MCV 88.0 80 - 100 fl [facility] MCH 31.2 26 - 34 pg [facility] MCHC 35.3 32 - 36 [facility] g/dl RDW 12.0 11.5 - 14.5 [facility] % Platelets 191 150 - 450 [facility] k/ul Specimen Anatomical Collection Method Collection Time Receive d Time (Source) Location / / Volume Laterality 10/03/2014 11:44 10/03/2014 AM TRUST ADMINISTRATOR 11:48 AM TRUST ADMINISTRATOR Narrative [facility] - 10/03/2014 12:01 PM TRUST ADMINISTRATOR Performed at [facility], [address] [place] [id number] Ramin Edge PA-C LAB_1 Performing Organization Address City/State/ZIP Code Phon e Number [facility] [phone] documented in this encounter Visit Diagnoses Diagnosis Localized superficial swelling, mass, or lump documented in this encounter Care Teams Project Safety Manager Relationship Specialty Start Date End Date Ramin Edge PA-C PCP - General Physician Data Assistant 10/03/14 11/25/14 documented as of this encounter
--- OUTSIDE RECORDS SUMMARY | 2022-04-13 11:06 | XMS_ITS | Encounter Summary ---
:1980 Author Organization [facility] Address [address] [place] [address] Care Team Providers Name Role Phone Suhas Lyon MD Primary Care Provider Reason for Referral Consult/Transfer Care (Routine) - Closed Specialty Diagnoses / Procedures Referred By Contact Refer red To Contact Diagnoses Encounter for long-term (current) use of medications Chava Christensen MD [address] [place] [address] Referral ID Status Reason Start Date Expiration Date Visits Requ ested Visits Authorized [id number] Closed 03/26/2017 04/26/2017 1 1 Scheduling Instructions Your provider has recommended you to fol low up with your Primary Coating Mixer Tender. If you are currently seeing a [facility] provider for your primary care needs, a de icer will contact you within the in xt 3 business days to assist you in setting up this appointment. To schedule your ap pointment you may call [phone]. We suggest you call your [employer] about your coverage and benefits for this service. Encounter Details Date Type Department Care Team Description 03/20/2017 [facility] [address] [facility], [place] [address] [place] [address] [phone] (Wo rk) Social History Tobacco Use Types Packs/Day Years Used Date Smoking Tobacco: Former Smokeless Tobacco: Former Qu it: 07/16/2011 Alcohol Use Standard Drinks/Week Comments Yes 0 (1 standard drink = 0.6 oz pure alcoho l) Sex Assigned at Date Recorded Not on file documented as of this encounter Nursing Notes Niall Ware CMA - 03/26/2017 9:21 AM CDT Pt notified. Referral order placed in chart. Niall Ware CMA 03/26/2017, 9:21 AM documented in this encounter Plan of Treatment Scheduled Referrals Name Type Priority Associated Diagnoses [facility] Follow-Up Referral Routine Encounter for long -term Ordered: 03/26/2017 (current) use of medications documented as of this encounter Visit Diagnoses Diagnosis Encounter for long-term (current) use of medications - Primary Encounter for long-term (current) use of other medications documented in this encounter Care Teams Solar Sales Ambassador Relationship Specialty Start Date End Date Suhas Lyon MD PCP - General 06/13/20 [address] [place] [address] documented as of this encounter
--- OUTSIDE RECORDS SUMMARY | 2022-04-13 11:06 | XMS_ITS | Encounter Summary ---
:1980 Author Organization [facility] Address [address] [place] [address] Care Team Providers Name Role Phone Ronan Boateng MD Primary Care Provider [phone] Encounter Details Date Type Department Care Team Description 12/07/2018 Notes/Orders [facility] Suhas Lyon, [facility] Practice MD ([facility]) (Primary Dx) [address] [facility]. [address] [place], [place] [address] [phone] Social History Tobacco Use Types Packs/Day Years Used Date Smoking Tobacco: Former Smokeless Tobacco: Former Qu it: 07/16/2011 Alcohol Use Standard Drinks/Week Comments Yes 0 (1 standard drink = 0.6 oz pure alcoho l) Sex Assigned at Date Recorded Not on file documented as of this encounter Plan of Treatment Not on filedocumented as of this encounter Visit Diagnoses Diagnosis Depression, recurrent ([facility]) - Primary Major depressive disorder, recurrent epi sode, unspecified documented in this encounter Care Teams Early Intervention Specialist Relationship Specialty Start Date End Date Ronan Boateng MD PCP - General Family Practice 04/13/18 06/12/20 documented as of this encounter
--- OUTSIDE RECORDS SUMMARY | 2022-04-13 11:06 | XMS_ITS | Encounter Summary ---
:1980 Author Organization [facility] Address [address] [place] [address] Care Team Providers Name Role Phone Gabriel Christensen MD Primary Care Provider Reason for Visit Reason Comments Refill citalopram (CELEXA) 20 MG ta blet [Pharmacy Med Name: CITALOPRAM 20MG TABLETS]; buPROPion (WELLBUTRIN XL) 30 0 MG 24 hour release tablet [Pharmacy Med Name: BUPROPION XL 300MG TABLETS] Encounter Details Date Type Department Care Team Description 03/20/2017 Refill [facility] Gabriel Christensen M D Refill (citalopram Practice [address] (CELEXA) 20 MG tablet [address] [facility] [address] [place], [place] [Pharmacy Med Name: [place], [place] [phone] CITALOPRAM 20MG TABLETS]; [phone] buPROPion (WELL BUTRIN XL) (Work) 300 MG 24 hour release tablet [P harmacy Med Name: BUPROPION XL 300MG TABLETS]) Social History Tobacco Use Types Packs/Day Years Used Date Smoking Tobacco: Former Smokeless Tobacco: Former Qu it: 07/16/2011 Alcohol Use Standard Drinks/Week Comments Yes 0 (1 standard drink = 0.6 oz pure alcoho l) Sex Assigned at Date Recorded Not on file documented as of this encounter Nursing Notes Gabriel Christensen MD - 03/24/2017 10:21 AM CDT 30 days rx sent. Hosea Ware - 03/24/2017 10:10 AM CDT Patient calling back stating would like if possible to get a 30 days supply since his appointment isnot till 04/13. Paddy Stein - 03/24/2017 9:55 AM CDT Pt scheduled office visit for 04/13/17 @4:20pm. Paddy Stein 03/24/2017, 9:55 AM Thao Castillo RN - 03/22/2017 11:16 AM CDT Patient is overdue for office visit. Please call and schedule patient. Thao Castillo RN Interface, Out Surescripts Prov Query - 03/20/2017 4:21 PM CDT buPROPion (WELLBUTRIN XL) 300 MG 24 hour release tablet [Pharmacy Med Name: BUPROPION XL 300MG TABLETS] Protocol: Antidepressants and Antianxiety -> An office visit is overdue (performed over 15 months ago, required every 12 months). Last qualifying visit: 12/19/2015 (in Family Practice) Next scheduled visit: None Last ordered by GABRIEL CHRISTENSEN P: 12/16/2016 (94 days ago) QTY: 90, Refills: 0, Sig: take 1 tablet by mouth daily (unchanged) Age: 36 Powered by [employer], Reference: [id number], 03/20/2017 4:21:18 PM CDT, Pool: RI REFILL RN ([id number]) citalopram (CELEXA) 20 MG tablet [Pharmacy Med Name: CITALOPRAM 20MG TABLETS] Protocol: Antidepressants and Antianxiety -> An office visit is overdue (performed over 15 months ago, required every 12 months). Last qualifying visit: 12/19/2015 (in Family Practice) Next scheduled visit: None Last ordered by GABRIEL CHRISTENSEN P: 12/22/2016 (88 days ago) QTY: 90, Refills: 0, Sig: take 1 tablet by mouth every day (unchanged) Age: 36 Powered by [employer], Reference: [id number], 03/20/2017 4:21:18 PM CDT, Pool: STEPHANIE CASIANO RN ([id number]) documented in this encounter Plan of Treatment Not on filedocumented as of this encounter Visit Diagnoses Not on filedocumented in this encounter Care Teams Latex Caster Relationship Specialty Start Date End Date Gabriel Christensen MD PCP - General Family Practice 12/22/16 04/12/[address] [place] [address] documented as of this encounter
--- OUTSIDE RECORDS SUMMARY | 2022-04-13 11:06 | XMS_ITS | Encounter Summary ---
:1980 Author Organization [facility] Address [address] [place] [address] Care Team Providers Name Role Phone Ronan Goel MD Primary Care Provider [phone] Reason for Visit Reason Comments Refill buPROPion (WELLBUTRIN XL) 30 0 MG 24 hour release tablet [Pharmacy Med Name: BUPROPION XL 300MG TABLETS]; citalopram (CELEXA) 20 MG tablet [Pharmacy Med Name: CITALOPRAM 20MG TABLET S] Encounter Details Date Type Department Care Team Description 04/28/2020 Refill [facility] Ronan Goel, Refill (buPROPion Practice (WELLBUTRIN XL) 300 MG [address] [facility] [address] 24 hour release tablet [place], [place] [address] [place] [address] [Pharmacy Med Name: [phone] (Wo rk) BUPROPION XL 300MG TABLETS]; citalopram [...] Prov Query - 04/28/2020 11:15 AM CDT buPROPion (WELLBUTRIN XL) 300 MG 24 hour release tablet [Pharmacy Med Name: BUPROPION XL 300MG TABLETS] Miscellaneous - 12 Month Visit -> An office visit is overdue (performed 14 months ago, required every 12 months). Last qualifying visit: 03/08/2019 (with RONAN GOEL) Next scheduled visit: None Last ordered by RONAN GOEL: 03/27/2020 (32 days ago) QTY: 30, Refills: 0, Sig: take 1 tablet by mouth daily. (unchanged) Powered by [employer], Reference: [id number], 04/28/2020 11:15:46 AM Rohan GARVIN: STEPHANIE CASIANO RN ([id number]) citalopram (CELEXA) 20 MG tablet [Pharmacy Med Name: CITALOPRAM 20MG TABLETS] Antidepressants -> An office visit is overdue (performed 14 months ago, required every 12 months). Last qualifying visit: 03/08/2019 (with RONAN GOEL) Next scheduled visit: None Last ordered by RONAN GOEL: 03/27/2020 (32 days ago) QTY: 30, Refills: 0, Sig: take 1 tablet by mouth daily. (unchanged) Age: 39 Powered by [employer], Reference: [id number], 04/28/2020 11:15:46 AM VIRGIE, Pool: STEPHANIE CASIANO RN ([id number]) documented in this encounter Plan of Treatment Not on filedocumented as of this encounter Visit Diagnoses Not on filedocumented in this encounter Care Teams Management Recruiter Relationship Specialty Start Date End Date Ronan Goel MD PCP - General Family Practice 04/13/18 06/12/20 documented as of this encounter
--- OUTSIDE RECORDS SUMMARY | 2022-04-13 11:06 | XMS_ITS | Encounter Summary ---
:1980 Author Organization [facility] Address [address] [place] [address] Care Team Providers Name Role Phone No Primary/Referring, Sahra Primary Care Provider Unavailable Reason for Visit Reason Comments Refill Encounter Details Date Type Department Care Team Description 11/27/2015 Refill [facility] Ramin Lyons, CESAR Refill [address] [facility] [place], [place] [address] Social History Tobacco Use Types [...] on filedocumented in this encounter Care Teams Annual Giving Manager Relationship Specialty Start Date End Date No Primary/ReferringSahra PCP - General 05/03/15 documented as of this encounter
--- OUTSIDE RECORDS SUMMARY | 2022-04-13 11:06 | XMS_ITS | Encounter Summary ---
:1980 Author Organization [facility] Address [address] [address] Care Team Providers Name Role Phone Ronan Goel MD Primary Care Provider [phone] Reason for Visit Reason Comments Refill citalopram (CELEXA) 20 MG ta blet [Pharmacy Med Name: CITALOPRAM 20MG TABLETS]; buPROPion (WELLBUTRIN XL) 30 0 MG 24 hour release tablet [Pharmacy Med Name: BUPROPION XL 300MG TABLETS] Encounter Details Date Type Department Care Team Description 03/25/2020 Refill [facility] Ronan Goel, Refill (citalopram Practice (CELEXA) 20 MG tablet [address] [facility] [address] [facility] [address] [Pharmacy Med Name: [place], [place] [address] [address] [place] [address] CITALOPRAM 20MG [phone] (Wo rk) TABLETS]; buPROPion (WELLBUTR IN XL) 300 MG 24 hour release tablet [Pharmacy Med N jackson: BUPROPION XL 30 0MG TABLETS]) Social History Tobacco Use Types Packs/Day Years Used Date Smoking Tobacco: Former Smokeless Tobacco: Former Qu it: 07/16/2011 Alcohol Use Standard Drinks/Week Comments Yes 0 (1 standard drink = 0.6 oz pure alcoho l) Sex Assigned at Date Recorded Not on file documented as of this encounter Nursing Notes Alicia Vargas RN - 03/27/2020 11:[address] Goel is no longer with [facility]. I will forward to [facility] staff to follow up on this refill request. Alicia Varags RN Interface, Out Wesleyprice Prov Query - 03/25/2020 5:13 PM CDT buPROPion (WELLBUTRIN XL) 300 MG 24 hour release tablet [Pharmacy Med Name: BUPROPION XL 300MG TABLETS] Miscellaneous - 12 Month Visit -> Refill x 1 month (courtesy refill. overdue for an office visit) Last qualifying visit: 03/08/2019 (with RONAN GOEL) Next scheduled visit: None Last ordered by RONAN GOEL: 03/08/2019 (383 days ago) QTY: 90, Refills: 3, Sig: take 1 tablet by mouth daily. (unchanged) Powered by [employer], Reference: [id number], 03/25/2020 5:13:26 PM CDT, Pool: STEPHANIE CASIANO RN ([id number]) citalopram (CELEXA) 20 MG tablet [Pharmacy Med Name: CITALOPRAM 20MG TABLETS] Antidepressants -> Refill x 1 month (courtesy refill. overdue for an office visit) Last qualifying visit: 03/08/2019 (with RONAN GOEL) Next scheduled visit: None Last ordered by RONAN GOEL: 03/08/2019 (383 days ago) QTY: 90, Refills: 3, Sig: take 1 tablet by mouth daily. (unchanged) Age: 39 Powered by [employer], Reference: [id number], 03/25/2020 5:13:26 PM CDT, Pool: RI REFILL NATALIE ([id number]) documented in this encounter Plan of Treatment Not on filedocumented as of this encounter Visit Diagnoses Not on filedocumented in this encounter Care Teams Studio Camera Operator Relationship Specialty Start Date End Date Ronan Goel MD PCP - General Family Practice 04/13/18 06/12/20 documented as of this encounter
--- OUTSIDE RECORDS SUMMARY | 2022-04-13 11:06 | XMS_ITS | Encounter Summary ---
:1980 Author Organization [facility] [employer] Address [address] [place] [address] Care Team Providers Name Role Phone Ronan Goel MD Primary Care Provider [phone] Reason for Visit Reason Onset Date Comments Refill Refill 03/27/2020 Encounter Details Date Type Department Care Team Description 03/25/2020 Refill [facility] Ronan Goel MD Refill; Refill [address] [place], [place] [address] [place] [address] [phone] (Wo rk) Social History Tobacco Use Types Packs/Day Years Used Date Smoking Tobacco: Former Smokeless Tobacco: Former Qu it: 07/16/2011 Alcohol Use Standard Drinks/Week Comments Yes 0 (1 standard drink = 0.6 oz pure alcoho l) Sex Assigned at Date Recorded Not on file documented as of this encounter Progress Notes Ramona Rehman RN - 03/27/2020 1:30 PM CDT Addended by: JOSH REHMAN on: 03/27/2020 01:30 PM Modules accepted: Orders documented in this encounter Nursing Notes Ramona Rehman RN - 03/27/2020 1:29 PM CDT Also needed refill on his antidepressant meds . Given 30 tabs of each of those as well.He is aware needs to establish care .Ramona Rehman RN 03/27/2020, 1:30 PM Suhas Lyon MD - 03/27/2020 1:02 PM CDT Refilled for one month. Recommend that he establish with a new provider in that time to re-check hisblood pressure. Ailyn Barrera RN - 03/27/2020 9:38 AM CDT Confirmed med refill request with pt. Aware that [facility] clinic is closed and Dr Goel is no longer Family Practice Last office visit with Dr Goel 03/08/19 for HTN Has 6 tabs of amlodipine left Plans on establishing care with provider in [place] within the next month He understands that annual visit and labs is needed for HTN management Routing med request to Dr Lyon If refill approved for #30 day supply no call back needed Pt will wait to to hear from pharmacy And est care within the next month Ailyn Barerra RN 03/27/2020, 9:42 AM Germain Carney RN - 03/27/2020 8:[address] [facility]el is no [facility] with [facility]. I will forward to [facility] staff to follow up on this refill request. Annalisa Murray RN - 03/26/2020 9:51 AM CDT Further Assistance Needed on Refill from Clinician RN reviewed. Patient did not follow clinician's plan of care. Patient due for follow up 03/08/19 1. Essential hypertension: Will start on Norvasc 5 mg daily. Discussed decreasing alcohol to improveblood pressure. Follow-up in 1 month Review pended order for accuracy and sign if appropriate and Document if appointment is needed for further refills Requested Prescriptions Pending Prescriptions Disp Refills ??? amLODIPine (NORVASC) 5 MG tablet [Pharmacy Med Name: AMLODIPINE BESYLATE 5MG TABLETS] 90 Tablet 0 Sig: TAKE 1 TABLET BY MOUTH DAILY Annalisa Murray RN 03/26/2020, 9:53 AM Interface, Out Surescripts Prov Query - 03/25/2020 5:13 PM CDT amLODIPine (NORVASC) 5 MG tablet [Pharmacy Med Name: AMLODIPINE BESYLATE 5MG TABLETS] Miscellaneous - 12 Month Visit -> The requested strength (5 mg oral tablet) was last ordered on 03/08/2019. The patient is taking 2.5 mg oral tablet as of 03/08/2019. -> The most recent order on 03/07/2020. -> Refill x 1 month (courtesy refill. overdue for an office visit) Last qualifying visit: 03/08/2019 (with RONAN GOEL) Next scheduled visit: None Last ordered by RONAN GOEL: 03/08/2019 (383 days ago) QTY: 90, Refills: 3, Sig: take 1 tablet by mouth daily. (unchanged) Powered by [employer], Reference: [id number], 03/25/2020 5:13:26 PM CDT, Pool: RI REFILL RN ([id number]) documented in this encounter Plan of Treatment Not on filedocumented as of this encounter Visit Diagnoses Not on filedocumented in this encounter Care Teams Loom Control Chain Builder Relationship Specialty Start Date End Date Ronan Goel MD PCP - General Family Practice 04/13/18 06/12/20 documented as of this encounter
--- OUTSIDE RECORDS SUMMARY | 2022-04-13 11:06 | XMS_ITS | Encounter Summary ---
:1980 Author Organization [facility] Address [address] [place] [address] Care Team Providers Name Role Phone Ronan Boateng MD Primary Care Provider [phone] Reason for Visit Reason Comments Refill buPROPion (WELLBUTRIN XL) 30 0 MG 24 hour release tablet [Pharmacy Med Name: BUPROPION XL 300MG TABLETS]; citalopram (CELEXA) 20 MG tablet [Pharmacy Med Name: CITALOPRAM 20MG TABLET S] Encounter Details Date Type Department Care Team Description 04/12/2018 Refill [facility] Gabriel Christensen M D Refill (buPROPion Practice [address] (WELLBUTRIN XL) [address] MG [address] [place], [place] hour release tablet [place], [place] [address] [Pharmacy Med Name: [phone] BUPROPION XL 30 0MG (Work) TABLETS]; citalopram (CELEXA) 20 MG tablet [Pharmacy Med N jackson: CITALOPRAM 20MG TABLETS]) Social History Tobacco Use Types Packs/Day Years Used Date Smoking Tobacco: Former Smokeless Tobacco: Former Qu it: 07/16/2011 Alcohol Use Standard Drinks/Week Comments Yes 0 (1 standard drink = 0.6 oz pure alcoho l) Sex Assigned at Date Recorded Not on file documented as of this encounter Nursing Notes Ronan Boateng MD - 04/13/2018 1:58 PM CDT Needs f/u visit. Ronan Boateng MD 04/13/2018, 1:58 PM Katie Miguel - 04/13/2018 11:46 AM CDT Assign patient a new pcp, did offer to schedule an appt with patient to see new pcp and establish care Patient decline states he lives to far and isn't available anytime too, wondering if Dr. Boateng is willing to schedule a telephone visit as a follow-up Dr. Boateng please advise if this is okay Katie Miguel 04/13/2018, 11:47 AM Annalisa Murray RN - 04/13/2018 8:01 AM CDT Please reassign PCP and forward to Provider Rohan. Unable to refill rx under above PCP. Annalisa Murray RN 04/13/2018, 8:01 AM Interface, Out Surescripts Prov Query - 04/12/2018 10:35 AM CDT buPROPion (WELLBUTRIN XL) 300 MG 24 hour release tablet [Pharmacy Med Name: BUPROPION XL 300MG TABLETS] Antidepressants and Antianxiety -> Refill x 3 months (until due for an office visit) Last [facility]: [facility]2017 [facility] Next scheduled visit: None Last ordered by GABRIEL CHRISTENSEN P: 04/21/2017 (356 days ago) QTY: 90, Refills: 3, Sig: take 1 tab by mouth daily. (changed but equivalent) Age: 37 Powered by [employer], Reference: [id number], 04/12/2018 10:35:42 AM CDT, Pool: STEPHANIE CASIANO RN ([id number]) citalopram (CELEXA) 20 MG tablet [Pharmacy Med Name: CITALOPRAM 20MG TABLETS] Antidepressants and Antianxiety -> Refill x 3 months (until due for an office visit) Last qualifying visit: [facility]21[facility]2017 [facility] Next scheduled visit: None Last ordered by GABRIEL CHRISTENSEN P: 04/21/2017 (356 days ago) QTY: 90, Refills: 3, Sig: take 1 tab by mouth daily. (changed but equivalent) Age: 37 Powered by [employer], Reference: [id number], 04/12/2018 10:35:42 AM CDTRohan: STEPHANIE CASIANO RN ([id number]) documented in this encounter Plan of Treatment Not on filedocumented as of this encounter Visit Diagnoses Not on filedocumented in this encounter Care Teams Customer Trainer Relationship Specialty Start Date End Date Ronan Boateng MD PCP - [facility] 04/13/18 06/12/20 documented as of this encounter
--- OUTSIDE RECORDS SUMMARY | 2022-04-13 11:06 | XMS_ITS | Encounter Summary ---
:1980 Author Organization [facility] Address [address] [place] [address] Care Team Providers Name Role Phone No Primary/Referring, Phy Primary Care Provider Unavailable Encounter Details Date Type Department Care Team Description 05/03/2015 Immunization [facility] fo r influenza Valley vaccination (Primary Dx) [address] [place], [place] [address] Social History Tobacco Use Types Packs/Day Years Used Date Smoking Tobacco: Former Smokeless Tobacco: Former Qu it: 07/16/2011 Alcohol Use Standard Drinks/Week Comments Yes 0 (1 standard drink = 0.6 oz pure alcoho l) Sex Assigned at Date Recorded Not on file documented as of this encounter Progress Notes Jefferson Murlilo LPN - 05/03/2015 7:57 PM CDT SUBJECTIVE Benjamin Orosco is a 34 y.o. old male here for a flu shot. Screening for QIV or TIV injected vaccine Severe allergy to eggs (If yes, refer to standing order for additional information): no Severe allergy to latex (If yes, refer to standing order for additional information): no Previous severe reaction to influenza vaccine or vaccine component (if yes, refer to standing order for additional information): no Ill appearing with increased respiratory rate, moderate fever (>101.0 F), and increased heart rate: no NOTE: a moderate illness such as otitis, sinusitis or URI accompanied by a fever up to 102.0 is not a contraindication to immunization. Recent onset of major neurological problem: no History of [place] within 6 weeks of receiving an influenza immunization: no History of bleeding problem: no (If YES to any of the above, consult MD) OBJECTIVE Temp (only if ill today): ASSESSMENT Eligible for flu vaccine today: Yes PLAN Administer TIV Seasonal Injected per standing orders. Education: discussed possible side effects and provided health education materials. Jefferson Murillo LPN documented in this encounter Plan of Treatment Not on filedocumented as of this encounter Visit Diagnoses Diagnosis Need for influenza vaccination - Primary Need for prophylactic vaccination and in oculation against influenza documented in this encounter Care Teams Senior Writer Relationship Specialty Start Date End Date No Primary/Referring, Phy PCP - General 05/03/15 documented as of this encounter
--- OUTSIDE RECORDS SUMMARY | 2022-04-13 11:06 | XMS_ITS | Encounter Summary ---
:1980 Author Organization [facility] Address [address] [address] Care Team Providers Name Role Phone Ronan Boateng MD Primary Care Provider [phone] Reason for Visit Reason Comments Refill citalopram (CELEXA) 20 MG ta blet [Pharmacy Med Name: CITALOPRAM 20MG TABLETS]; buPROPion (WELLBUTRIN XL) 30 0 MG 24 hour release tablet [Pharmacy Med Name: BUPROPION XL 300MG TABLETS] Encounter Details Date Type Department Care Team Description 12/01/2018 Refill [facility] Suhas Lyon MD Refill (citalopram Practice [address] (CELEXA) 20 MG tablet [address] [place] [address] [Pharmacy Med Name: [place], [place] [address] CITALOPRAM 20MG [phone] TABLETS]; buPROPion (WELLBUTRIN XL) 300 MG 24 hour [...] documented as of this encounter Nursing Notes Teri Kennedy LPN - 12/07/2018 2:28 PM CDT Spoke with pt regarding refill request for Citalopram and Wellbutrin. Pt was upset that medications had not been refilled and stated he did not have time to come in to see provider as stated by provider. Spoke with Dr Lyon, agreed to one refill. Informed pt of this and that he needs to follow up either with our clinic or another clinic closer to home. Pt hung up. Teri Kennedy LPN 12/07/2018, 2:30 PM Carmen Alarcon, NATALIE - 12/01/2018 3:21 PM CDT Further Assistance Needed on Refill from Trailer Mechanic Patient is overdue for Office visit. and fasting lab work 09/06/18 OV 3. Follow-Up: recommended follow-up in one month in our clinic or with a provider in [place] for repeat of blood pressure and to check cholesterol/renal function (did not have time to do so today) ? Please see orders and patient instructions ?? Suhas Lyon MD Please call patient to schedule a Office Visit and document using .[email or web address]. After attempting to schedule patient: Please route to: Clinician/Care Team Pool Requested Prescriptions Pending Prescriptions Disp Refills ??? citalopram (CELEXA) 20 MG tablet [Pharmacy Med Name: CITALOPRAM 20MG TABLETS] 90 Tablet 3 Sig: TAKE 1 TABLET BY MOUTH DAILY ??? buPROPion (WELLBUTRIN XL) 300 MG 24 hour release tablet [Pharmacy Med Name: BUPROPION XL 300MG TABLETS] 90 Tablet 3 Sig: TAKE 1 TABLET BY MOUTH DAILY Interface, Out Surescripts Prov Query - 12/01/2018 10:20 AM CDT buPROPion (WELLBUTRIN XL) 300 MG 24 hour release tablet [Pharmacy Med Name: BUPROPION XL 300MG TABLETS] Antidepressants and Antianxiety -> Refill x 12 months, qty: 90, refills: 3 (until due for an office visit) Last qualifying visit: 09[facility]06[facility]2018 [facility] Next scheduled visit: None Last ordered by SUHAS LYON S: 09/06/2018 (86 days ago) QTY: 90, Refills: 0, Sig: take 1 tablet by mouth daily. (unchanged) Age: 38 Powered by [employer], Reference: [id number], 12/01/2018 10:20:51 AM Rohan GARVIN: STEPHANIE CASIANO RN ([id number]) citalopram (CELEXA) 20 MG tablet [Pharmacy Med Name: CITALOPRAM 20MG TABLETS] Antidepressants and Antianxiety -> Refill x 12 months, qty: 90, refills: 3 (until due for an office visit) Last qualifying visit: 09/06/2018 [facility] Next scheduled visit: None Last ordered by SUHAS LYON S: 09/06/2018 (86 days ago) QTY: 90, Refills: 0, Sig: take 1 tablet by mouth daily. (unchanged) Age: 38 Powered by [employer], Reference: [id number], 12/01/2018 10:20:51 AM Rohan GARVIN: STEPHANIE CASIANO RN ([id number]) documented in this encounter Plan of Treatment Not on filedocumented as of this encounter Visit Diagnoses Diagnosis Encounter for long-term (current) use of medications - Primary Encounter for long-term (current) use of other medications documented in this encounter Care Teams Filling Hand Relationship Specialty Start Date End Date Ronan Boateng MD PCP - General Family Practice 04/13/18 06/12/20 documented as of this encounter
--- OUTSIDE RECORDS SUMMARY | 2022-04-13 11:06 | XMS_ITS | Clinical Summary ---
:1980 Author Organization [employer] Address [address], [place] [address] Care Team Providers Name Role Phone Suhas Lyon MD Primary Care Provider Source Comments You are receiving this document as you are listed as the primary care provider,follow-up provider, or the patient has been referred to you for consultation.This is in compliance with the Medicare and Medicaid EHR Incentive Program,which states Providers who transition their patient to another setting of careor provider of care or refers their patient to another provider of care shouldprovide summarycare record for each transition of care or referral. Automated Insights Allergies Active Allergy Reactions Severity Noted Date Comments Other Rash 04/08/2009 Nickel allergy Penicillin And Derivatives Medications Medication Sig Dispensed Refills Start Date End Date Status omeprazole (PRILOSEC) Take 20 mg by 0 Active 20 MG capsule mouth daily. Take 1 hour before a meal. amLODIPine (NORVASC) 5 Take 1 Tablet by 30 Tablet 0 03/27/2020 Active MG tablet mouth daily. buPROPion (WELLBUTRIN Take 1 Tablet by 30 Tablet 0 03/27/2020 Active XL) 300 MG 24 hour mouth daily. release tablet citalopram (CELEXA) 20 Take 1 Tablet by 30 Tablet 0 03/27/2020 Active MG tablet mouth daily. Active Problems Problem Noted Date Essential hypertension 09/06/2018 Depression, recurrent 08/17/2013 Anxiety disorder 10/24/2009 Overview: Anxiety Disorder NOS Alcohol dependence in remission 05/08/2009 Overview: Relapsed, currently drinking. February 2019. Persistent disorder of initiating or maintaining sleep 04/08/2009 Immunizations Name Administration Dates Next Due Fluzone Qiv Multidose Vial 0.25 05/25/2016, 05/19/2013 (6-35 Mos) Influenza IIV4 (Quadrivalent) 0.5mL 06/20/2018, 05/03/2015, 05/31/2014, ([id number]) 05/19/2013 MMR 12/02/1989 Td 03/04/1993 Tdap 09/08/2011 Family History Medical History Relation Name Comments Alcohol/Drug Abuse Father Alcohol/Drug Abuse Mother Relation Name Status Comments Father Mother Social History Tobacco Use Types Packs/Day Years Used Date Smoking Tobacco: Former Smokeless Tobacco: Former Qu it: 07/16/2011 Alcohol Use Standard Drinks/Week Comments Yes 0 (1 standard drink = 0.6 oz pure alcoho l) Sex Assigned at Date Recorded Not on file Last Filed Vital Signs Vital Sign Reading Time Taken Comments Blood Pressure 143/102 03/08/2019 3:23 PM CDT Pulse 66 03/08/2019 3:23 PM CDT Temperature 36.9 ??C (98.5 ??F) 10/03/2014 11:23 AM OBSTETRICIAN Respiratory Rate 20 03/08/2019 3:16 PM CDT Oxygen Saturation 97% 04/28/2012 12:47 AM CDT Inhaled Oxygen Concentration - - Weight 105.7 kg (233 lb) 03/08/2019 3:16 PM CDT Height 177.8 cm (5' 10) 09/06/2018 3:08 PM OBSTETRICIAN Body Mass Index 33.43 09/06/2018 3:08 PM OBSTETRICIAN Plan of Treatment Health Maintenance Due Date Last Done Comments Hep C Screening (Preventive 1978 Services) COVID-19 Vaccine (#1) 05/24/1979 Pneumococcal (1 - PCV) 1984 HIV Screening (Preventive 1994 Services) Adult Preventive Visit 1996 Cholesterol 2013 DTaP/Tdap/Td (3 - Tdap) 09/08/2021 09/08/2011, 03/04/1993 Influenza (#1) 2022 05/13/2020, 05/31/2019, 06/20/2018, Additional history exists Zoster/Shingles (1 of 2) 2028 HPV Vaccine Aged Out No longer eligib le based on patient 's age to complete this topic HepA Aged Out No longer eligib le based on patient 's age to complete this topic Hib Aged Out No longer eligib le based on patient 's age to complete this topic IPV (Polio) Aged Out No longer eligib le based on patient 's age to complete this topic MCV4 Aged Out No longer eligib le based on patient 's age to complete this topic Insurance Payer Benefit Plan / Subscriber ID Effective Dates Phone Addre ss Type Group [facility] [id number] 2016-Present Commercial [address] (Home) [place], [place] [phone] [id number] (Work) Care Teams Dramatic Critic Relationship Specialty Start Date End Date Suhas Lyon MD PCP - General 06/13/20 [address] [place] [address]
--- OUTSIDE RECORDS SUMMARY | 2022-04-13 11:06 | XMS_ITS | Encounter Summary ---
:1980 Author Organization [employer] Address [address] [place] [address] Care Team Providers Name Role Phone Ronan Boateng MD Primary Care Provider [phone] Reason for Visit Reason Comments MEDICATION CHECK need to get Rx's for antidep ressants FOLLOW-UP,BP stopped taking BP medication and would like to start back up on it Encounter Details Date Type Department Care Team Description 03/08/2019 Office Visit [facility] Ronan Boateng Ess ential hypertension (Primary Dx); Practice AMD Depression, recurrent (HRC); [address] [facility]. [address] Alcohol dependence in remission ([facility]) [place] [address] [place], [place] [phone] (Wo rk) [address] [phone] Social History Tobacco Use Types Packs/Day Years [...] Pulse 66 03/08/2019 3:23 PM CDT Temperature - - Respiratory Rate 20 03/08/2019 3:16 PM CDT Oxygen Saturation - - Inhaled Oxygen Concentration - - Weight 105.7 kg (233 lb) 03/08/2019 3:16 PM CDT Height - - Body Mass Index 33.43 09/06/2018 3:08 PM SETTER OUT documented in this encounter Patient Instructions Patient InstructionsRonan Boateng MD - 03/08/2019 3:20 PM CDT Goal for BP is <140/90. I want 80% of your BP in that range. [email or web address] is a great resource for meetings. [email or web address] I highly recommend going to 90 meetings in 90 days documented in this encounter Progress Notes Ronan Boateng MD - 03/08/2019 3:20 PM CDT Chief Complaint Patient presents with ??? MEDICATION CHECK need to get Rx's for antidepressants ??? FOLLOW-UP,BP stopped taking BP medication and would like to start back up on it SUBJECTIVE: Benjamin Orosco is a 38 y.o. old male is here for depression. Needs bp meds as well. Also on celexa and wellbutrin. PHQ-9 today is 3. He is very happy with his Wellbutrin and Celexa. History of alcohol dependence. Admits to drinking fairly regularly. Denies any consequences. Has been off bp meds for months. Has been taking Norvasc 2.5 mg daily. PHQ-9 1. Little interest or pleasure in doing things Not at all 2. Feeling down, depressed, or hopeless Several days 3. Trouble falling or staying asleep, or sleeping too much Not at all 4. Feeling tired or having little energy Several days 5. Poor appetite or overeating Not at all 6. Feeling bad about yourself -- or that you are a failure or have let yourself or your family down Several days 7. Trouble concentrating on things, such as reading the newspaper or watching television Not at all 8. Moving or speaking so slowly that other people could have noticed? Or the opposite -- being so fidgety or restless that you have been moving around a lot more than usual Not at all 9. Thoughts that you would be better off or of hurting yourself in some way Not at all Total 3 Outpatient Medications Prior to Visit Medication Sig Dispense Refill ??? amLODIPine (NORVASC) 2.5 MG tablet Take 1 Tablet by mouth daily. 30 Tablet 11 ??? buPROPion (WELLBUTRIN XL) 300 MG 24 hour release tablet TAKE 1 TABLET BY MOUTH DAILY 30 Tablet 0 ??? citalopram (CELEXA) 20 MG tablet TAKE 1 TABLET BY MOUTH DAILY 30 Tablet 0 ??? omeprazole (PRILOSEC) 20 MG capsule Take 20 mg by mouth daily. Take 1 hour before a meal. ??? famotidine (AKA PEPCID) 20 MG tablet Take 1 Tab by mouth two times a day. 60 Tab 0 No facility-administered medications prior to visit. Patient Active Problem List Diagnosis ??? Persistent disorder of initiating or maintaining sleep ??? Alcohol dependence in remission (HRC) ??? Anxiety disorder ??? Depression, recurrent (HRC) ??? Essential hypertension I have reviewed the medical history. OBJECTIVE: BP (!) 143/102 Pulse 66 Resp 20 Wt 233 lb (105.7 kg) BMI 33.43 kg/m?? Gen: NAD, appropriate Eyes: Sclera white Pharynx: Symmetric, moist Neck: supple, no adenopathy, no thyromegally CV: RRR no MRG Lung: CTA B Psych sober appropriate engaging in conversation Neuro: Grossly intact ASSESSMENT/PLAN: 1. Essential hypertension: Will start on Norvasc 5 mg daily. Discussed decreasing alcohol to improveblood pressure. Follow-up in 1 month 2. Depression and anxiety: Well controlled. Continue Wellbutrin and Celexa. Follow up in 1 year. 3. Alcohol use disorder: Patient relapsed is currently drinking. Encouraged him to go to meetings discussed the nature of alcoholism. Discussed using naltrexone and acamprosate. Ronan Boateng MD 03/08/2019, 3:26 PM This note created using speech-recognition software and may contain unintended word substitutions. documented in this encounter Plan of Treatment Not on filedocumented as of this encounter Visit Diagnoses Diagnosis Essential hypertension (HRC) - Primary Unspecified essential hypertension Depression, recurrent (HRC) Major depressive disorder, recurrent epi sode, unspecified Alcohol dependence in remission (HRC) Other and unspecified alcohol dependence , in remission documented in this encounter Care Teams Automotive Technology Instructor Relationship Specialty Start Date End Date Ronan Boateng MD PCP - General Family Practice 04/13/18 06/12/20 documented as of this encounter
--- OUTSIDE RECORDS SUMMARY | 2022-04-13 11:06 | XMS_ITS | Encounter Summary ---
:1980 Author Organization [facility] Address [address] [place] [address] Care Team Providers Name Role Phone No Primary/Referring, y Primary Care Provider Unavailable Reason for Visit Reason Comments Refill buPROPion (WELLBUTRIN XL) 30 0 MG 24 hour release tablet [Pharmacy Med Name: BUPROPION XL 300MG TABLETS] Encounter Details Date Type Department Care Team Description 12/16/2016 Refill [facility] Gabriel Christensen M D Refill (buPROPion Practice [address] (WELLBUTRIN XL) 300 MG 24 [address] [facility] [place], [place] hour release tablet [place], [place] [address] [Pharmacy Med Name: [phone] BUPROPION XL 30 0MG (Work) TABLETS]) Social History Tobacco Use Types Packs/Day Years Used Date Smoking Tobacco: Former Smokeless Tobacco: Former Qu it: 07/16/2011 Alcohol Use Standard Drinks/Week Comments Yes 0 (1 standard drink = 0.6 oz pure alcoho l) Sex Assigned at Date Recorded Not on file documented as of this encounter Nursing Notes Annalisa Murray RN - 12/16/2016 3:04 PM CDT per standing order Annalisa Murray RN Interface, Out Surescripts Prov Query - 12/16/2016 2:56 PM CDT buPROPion (WELLBUTRIN XL) 300 MG 24 hour release tablet [Pharmacy Med Name: BUPROPION XL 300MG TABLETS] Protocol: Antidepressants and Antianxiety -> Refill x 3 months (courtesy refill. overdue for an office visit) Last qualifying visit: 12/19/2015 (in Family Practice) Next scheduled visit: None Last ordered by GABRIEL CHRISTENSEN P: 12/19/2015 (363 days ago) QTY: 90, Refills: 3, Sig: take 1 tab by mouth daily. (changed but equivalent) Age: 36 Powered by [employer], Reference: [id number], 12/16/2016 2:56:39 PM CDT, Pool: STEPHANIE CASIANO RN ([id number]) documented in this encounter Plan of Treatment Not on filedocumented as of this encounter Visit Diagnoses Not on filedocumented in this encounter Care Teams Deputy Sheriff/Investigator Relationship Specialty Start Date End Date No Primary/Referring, Sahra PCP - General 05/03/15 documented as of this encounter
--- OUTSIDE RECORDS SUMMARY | 2022-04-13 11:06 | XMS_ITS | Encounter Summary ---
:1980 Author Organization [employer] [facility] Address [address] [place] [address] Care Team Providers Name Role Phone Ronan Boateng MD Primary Care Provider [phone] Reason for Visit Reason Comments Late Refill - Antidepressant Medication Bupropion and citalopram refill Encounter Details Date Type Department Care Team Description 09/06/2018 Office Visit [place] Suhas Rivera, Sam roth with anxiety (Primary Dx); Practice MD Essential hypertension [address] [facility] [place], [place] [address] [phone] Social History Tobacco Use Types Packs/Day Years Used Date Smoking Tobacco: Former Smokeless Tobacco: Former Qu it: 07/16/2011 Alcohol Use Standard Drinks/Week Comments Yes 0 (1 standard drink = 0.6 oz pure alcoho l) Sex Assigned at Date Recorded Not on file documented as of this encounter Last Filed Vital Signs Vital Sign Reading Time Taken Comments Blood Pressure 154/95 09/06/2018 3:10 PM TAX COMMISSIONER Pulse 78 09/06/2018 3:10 PM TAX COMMISSIONER Temperature - - Respiratory Rate - - Oxygen Saturation - - Inhaled Oxygen Concentration - - Weight 104.3 kg (230 lb) 09/06/2018 3:08 PM TAX COMMISSIONER Height 177.8 cm (5' 10) 09/06/2018 3:08 PM TAX COMMISSIONER Body Mass Index 33 09/06/2018 3:08 PM TAX COMMISSIONER documented in this encounter Patient Instructions Patient InstructionsSuhas Lyon MD - 09/06/2018 3:00 PM CST Today we will repeat your wellbutrin and celexa. We will add amlodipine 2.5 mg once per day. Try to keep your sodium (salt) intake to 9052-8436 mg per day. Try to eat 4-5 serving of fruits/vegetables per day. Try to add 30 minutes of walking/jogging per day. Follow-up in one month with our clinic or with a clinic in [place]. COMMISSIONER documented in this encounter Progress Notes Suhas Lyon MD - 09/06/2018 3:00 PM CST Historical: Chief Complaint Patient presents with ??? Late Refill - Antidepressant Medication Bupropion and citalopram refill Medication Check: Which medication(s) are you here to have reviewed/refilled? Bupropion and Citalopram Do you have difficulty taking medications as prescribed? No Do you have medication side effect concerns? No BP has been high for the past several years; family history of hypertension/coronary artery disease in his paternal uncles in their 50s-60s. Feels like he would like to take a medication to help get this down; no chest pain or shortness of breath. No swelling in the extremities. He has struggled with depression and anxiety, and been out of citalopram and bupropion for the past couple of weeks; denies any SI or HI. Lives in [place], and might try to find a clinic closer to his home for further refills/follow-up appointments. I have personally reviewed the patient's allergies, medications and past medical history in detail and updated the patient record as necessary. Observed: BP (!) 159/107 Pulse 79 Ht 5' 10 (1.778 m) Wt 230 lb (104.3 kg) BMI 33.00 kg/m?? Physical Exam: General Appearance: alert, well appearing and in no apparent distress Heart: regular rate and rhythm and no murmurs, gallops or rubs Lungs: clear to ausculation and no wheezes, rales or rhonchi Extremities: no edema Psychiatric: affect/mood normal, cooperative, normal judgement/insight and memory intact Assessment/Plan: 1. Depression with anxiety (HRC) - Repeat wellbutrin and celexa; recommended EKG; patient did not have time to do so today 2. Essential hypertension (HRC) - Add amlodipine 2.5 mg daily - Recommended more fruits/vegetables, decreasing sodium intake; regular exercise 3. Follow-Up: recommended follow-up in one month in our clinic or with a provider in [place] for repeat of blood pressure and to check cholesterol/renal function (did not have time to do so today) Please see orders and patient instructions Suhas Lyon MD COMMISSIONER documented in this encounter Plan of Treatment Not on filedocumented as of this encounter Visit Diagnoses Diagnosis Depression with anxiety (HRC) - Primary Dysthymic disorder Essential hypertension (HRC) Unspecified essential hypertension documented in this encounter Care Teams Salt Grinder Relationship Specialty Start Date End Date Ronan Boateng MD PCP - General Family Practice 04/13/18 06/12/20 documented as of this encounter
--- OUTSIDE RECORDS SUMMARY | 2022-04-13 11:06 | XMS_ITS | Encounter Summary ---
:1980 Author [facility] Address [address] [place] [address] Care Team Providers Name Role Phone No Primary/Referring, Phy Primary Care Provider Unavailable Reason for Visit Reason Comments Refill Encounter Details Date Type Department Care Team Description 12/19/2015 Office Visit Chava Hale, Depression , recurrent (HRC) (Primary Dx); Practice MD Anxiety disorder, unspecified type; [facility] [facility] [address] [place] for medication monitoring; [address]. [address] Gastroesophageal reflux disease, esophag itis presence not specified [place], [place] [address] [facility] [phone] [place] [id number] Social History Tobacco Use Types Packs/Day Years Used Date Smoking Tobacco: Former Smokeless Tobacco: Former Qu it: 07/16/2011 Alcohol Use Standard Drinks/Week Comments Yes 0 (1 standard drink = 0.6 oz pure alcoho l) Sex Assigned at Date Recorded Not on file documented as of this encounter Last Filed Vital Signs Vital Sign Reading Time Taken Comments Blood Pressure 126/82 12/19/2015 4:31 PM CDT Pulse 79 12/19/2015 4:31 PM CDT Temperature - - Respiratory Rate 14 12/19/2015 4:25 PM CDT Oxygen Saturation - - Inhaled Oxygen Concentration - - Weight 108.6 kg (239 lb 6.4 oz) 12/19/2015 4:25 PM CDT Height 177.8 cm (5' 10) 12/19/2015 4:25 PM CDT Body Mass Index 34.35 12/19/2015 4:25 PM CDT documented in this encounter Patient Instructions Patient InstructionsChava Christensen, MD - 12/19/2015 4:46 PM CDT Images from the original note were not included. Gastroesophageal Reflux Disease (GERD): Care Instructions Your Care Instructions Gastroesophageal reflux disease (GERD) is the backward flow of stomach acid into the esophagus. The esophagus is the tube that leads from your throat to your stomach. A one-way valve prevents the stomach acid from moving up into this tube. When you have GERD, this valve does not close tightly enough. If you have mild GERD symptoms including heartburn, you may be able to control the problem with antacids or iusu-ivn-udzbxpy medicine. Changing your diet, losing weight, and making other lifestyle changes can also help reduce symptoms. Follow-up care is a varghese part of your treatment and safety. Be sure to make and go to all appointments, and call your doctor if you are having problems. It???s also a good idea to know your test resultsand keep a list of the medicines you take. How can you care for yourself at home? ?? Take your medicines exactly as prescribed. Call your doctor if you think you are having a problemwith your medicine. ?? Your doctor may recommend hstk-cgn-sknzosn medicine. For mild or occasional indigestion, antacids, such as Tums, Gaviscon, Mylanta, or Maalox, may help. Your doctor also may recommend eymn-ovc-fmzrqsi acid reducers, such as Pepcid AC, Tagamet HB, Zantac 75, or Prilosec. Read and follow all instructions on the label. If you use these medicines often, talk with your doctor. ?? Change your eating habits. ?? It???s best to eat several small meals instead of two or three large meals. ?? After you eat, wait 2 to 3 hours before you lie down. ?? Chocolate, mint, and alcohol can make GERD worse. ?? Spicy foods, foods that have a lot of acid (like tomatoes and oranges), and coffee can make GERD symptoms worse in some people. If your symptoms are worse after you eat a certain food, you may want to stop eating that food to see if your symptoms get better. ?? Do not smoke or chew tobacco. Smoking can make GERD worse. If you need help quitting, talk to your doctor about stop-smoking programs and medicines. These can increase your chances of quitting for good. ?? If you have GERD symptoms at night, raise the head of your bed 6 to 8 inches by putting the frameon blocks or placing a foam wedge under the head of your mattress. (Adding extra pillows does not work.) ?? Do not wear tight clothing around your middle. ?? Lose weight if you need to. Losing just 5 to 10 pounds can help. When should you call for help? Call your doctor now or seek immediate medical care if: ?? You have new or different belly pain. ?? Your stools are black and tarlike or have streaks of blood. Watch closely for changes in your health, and be sure to contact your doctor if: ?? Your symptoms have not improved after 2 days. ?? Food seems to catch in your throat or chest. Where can you learn more? Go to [employer] and enter T927 in the search box. Current as of: July 05, 2015 Content Version: 108 ?? 2320-9362 [employer]. documented in this encounter Progress Notes Chava Christensen MD - 12/19/2015 4:53 PM CDT Subjective patient presents to establish care and get refills of his Wellbutrin and celexa. He has been on it for couple of years. Has not seen a primary care physician for over a year. Patient states that his depression is under well control. Denies any side effects including headache nausea of systemic palpitations. His only other complaint is he has a history of gastroesophageal reflux disease andhad been on omeprazole. He wonders if switching to a different medication for long-term use may be better. BP 126/82 mmHg Pulse 79 Resp 14 Ht 5' 10 (1.778 m) Wt 239 lb 6.4 oz (108.591 kg) BMI 34.35 kg/m2 General no acute distress Mood and affect appropriate. CV regular rate rhythm. Assessment plan 1. Depression anxiety. Continue the Wellbutrin and Celexa. 2 . Gastroesophageal reflux disease-trial of ranitidine. If this does not control his symptoms may have to go back to Prilosec and/or check for Helicobacter pylori Chava Christensen MD This note created using speech-recognition software and may contain unintended word substitutions. documented in this encounter Plan of Treatment Not on filedocumented as of this encounter Visit Diagnoses Diagnosis Depression, recurrent (HRC) - Primary Major depressive disorder, recurrent epi sode, unspecified Anxiety disorder, unspecified type (HRC) Encounter for medication monitoring Encounter for therapeutic drug monitorin g Gastroesophageal reflux disease, esophag itis presence not specified documented in this encounter Care Teams Email Engineer Relationship Specialty Start Date End Date No Primary/Referring, Phy PCP - General 05/03/15 documented as of this encounter
--- OUTSIDE RECORDS SUMMARY | 2022-04-13 11:06 | XMS_ITS | Encounter Summary ---
:1980 Author Organization [facility] Address [address] [place] [address] Care Team Providers Name Role Phone Chava Christensen MD Primary Care Provider Encounter Details Date Type Department Care Team Description 04/12/2018 Refill Order [facility] Chava Christensen MD [address] [place], [place] [address] [place] [address] [phone] (Wo rk) Social History Tobacco Use Types Packs/Day Years Used Date Smoking Tobacco: Former Smokeless Tobacco: Former Qu it: 07/16/2011 Alcohol Use Standard Drinks/Week Comments Yes 0 (1 standard drink = 0.6 oz pure alcoho l) Sex Assigned at Date Recorded Not on file documented as of this encounter Progress Notes Ashlyn Perez CMA - 04/12/2018 10:42 AM CDT Letter sent Ashlyn Perez CMA 04/12/2018, 10:42 AM documented in this encounter Nursing Notes Tom, Yamileth Wesleyrinikos Prov Query - 04/12/2018 10:35 AM CDT SCHEDULE THE FOLLOWING: - OFFICE VISIT BY: 04/16/2018 (Coming due as of 04/16/2018 for multiple medications including buPROPion (WELLBUTRIN XL) 300 MG 24 hour release tablet) - LAST QUALIFYING VISIT IN [facility]: 04/21/2017 - NEXT SCHEDULED VISIT: None - NEXT LAB APPOINTMENT: None We recently received a refill request on one of your medications. While reviewing your chart, we noticed that you are going to be due for a visit with your provider within the next 3 months. You can schedule your appointment online at [employer] or by calling the appointment center at the phone number listed above. Thank you for choosing [facility]. [facility] Powered by [email or web address], Reference: [id number], 04/12/2018 10:35:43 AM CDT, Pool: STEPHANIE CASIANO RN ([id number]) documented in this encounter Plan of Treatment Not on filedocumented as of this encounter Visit Diagnoses Diagnosis Encounter for long-term (current) use of medications - Primary Encounter for long-term (current) use of other medications documented in this encounter Care Teams Research Physician Relationship Specialty Start Date End Date Chava Christensen MD PCP - General Family Practice 12/22/16 04/12/[address] [place] [address] documented as of this encounter
--- OUTSIDE RECORDS SUMMARY | 2022-04-13 11:06 | XMS_ITS | Encounter Summary ---
:1980 Author Organization [facility] Address [address] [place] [address] Care Team Providers Name Role Phone Gabriel Christensen MD Primary Care Provider Reason for Referral Consult/Transfer Care (Routine) - Closed Specialty Diagnoses / Procedures Referred By Contact Refer red To Contact Diagnoses Depression with anxiety (HRC) Gabriel Christensen MD [address] [place], [place] [address] Referral ID Status Reason Start Date Expiration Date Visits Requ ested Visits Authorized [id number] Closed 12/22/2016 03/23/2018 1 1 Scheduling Instructions Your provider has recommended that you s chedule a Telephone Visit. A decision support manager will contact you within the next 3 business d ays to assist you in setting up this appointment. If you have not been contac tiffany please call your clinic to schedule your appointment. Reason for Visit Reason Comments Refill citalopram (CELEXA) 20 MG ta blet [Pharmacy Med Name: CITALOPRAM 20MG TABLETS] Encounter Details Date Type Department Care Team Description 12/16/2016 Refill [facility] Gabriel Christensen M D Refill (citalopram Practice [address] (CELEXA) 20 MG tablet [address] [facility] [place] [place] [Pharmacy Med Name: [place], [place] [id number] CITALOPRAM 20MG TABLETS]) [phone] Social History Tobacco Use Types Packs/Day Years Used Date Smoking Tobacco: Former Smokeless Tobacco: Former Qu it: 07/16/2011 Alcohol Use Standard Drinks/Week Comments Yes 0 (1 standard drink = 0.6 oz pure alcoho l) Sex Assigned at Date Recorded Not on file documented as of this encounter Nursing Notes Gabriel Christensen MD - 12/22/2016 11:54 AM CDT rx filled for 3 months. Call and let patient know he needs telephone visit. Wilda Lim - 12/22/2016 8:31 AM CDT Spoke with patient. Per patient ok to assign Dr. Christensen as PCP. Routed RX request to Dr. Christensen. F 12/22/16 Karissa Flowers RN - 12/17/2016 9:36 AM CDT CA: please assign PCP,then forward to that provider for review/refill. Thank you. Karissa Flowers RN Interface, Out Surescripts Prov Query - 12/16/2016 2:56 PM CDT citalopram (CELEXA) 20 MG tablet [Pharmacy Med Name: CITALOPRAM 20MG TABLETS] Protocol: Antidepressants and Antianxiety -> The requested sig has changed from the last order. -> Refill x 3 months (courtesy refill. overdue for an office visit) Last qualifying visit: 12/19/2015 (in Family Practice) Next scheduled visit: None Last ordered by GABRIEL CHRISTENSEN P: 12/19/2015 (363 days ago) QTY: 90, Refills: 3, Sig: take 1 tab by mouth daily. to be seen by new primary md, already notified in february. (changed) Age: 36 Powered by [employer], Reference: [id number], 12/16/2016 2:56:39 PM CDT, Pool: STEPHANIE REFILL RN ([id number]) documented in this encounter Plan of Treatment Scheduled Referrals Name Type Priority Associated Diagnoses Order S chedule Scheduled Telephone Referral Routine Depression with anxie ty Ordered: 12/22/2016 Visit documented as of this encounter Visit Diagnoses Diagnosis Depression with anxiety (HRC) - Primary Dysthymic disorder documented in this encounter Care Teams Anhydrous Ammonia Production Supervisor Relationship Specialty Start Date End Date Gabriel Christensen MD PCP - General Family Practice 12/22/16 04/12/18 [address] [place] [address] documented as of this encounter
--- OUTSIDE RECORDS SUMMARY | 2022-04-13 11:07 | XMS_ITS | Encounter Summary ---
:1980 Author Organization [facility] Address [address] [place] [address] Care Team Providers Name Role Phone Rodolfo Ortega MD Primary Care Provider Reason for Visit Reason Comments DIARRHEA 2 days FEVER 103.5 last night, took tylen ol last night Encounter Details Date Type Department Care Team Description 10/05/2011 Office Visit [facility] John Diarrhea (Primary Dx); Practice CMD Fever [address] [place] [address] [phone] Social History Tobacco Use Types Packs/Day Years Used Date Smoking Tobacco: Former Smokeless Tobacco: Former Qu it: 07/16/2011 Alcohol Use Standard Drinks/Week Comments Yes 0 (1 standard drink = 0.6 oz pure alcoho l) Sex Assigned at Date Recorded Not on file documented as of this encounter Last Filed Vital Signs Vital Sign Reading Time Taken Comments Blood Pressure 120/80 10/05/2011 9:38 AM STUDENT OUTREACH COORDINATOR Pulse 100 10/05/2011 9:38 AM STUDENT OUTREACH COORDINATOR Temperature 36.4 ??C (97.6 ??F) 10/05/2011 9:38 AM STUDENT OUTREACH COORDINATOR Respiratory Rate 18 10/05/2011 9:38 AM STUDENT OUTREACH COORDINATOR Oxygen Saturation - - Inhaled Oxygen Concentration - - Weight 111.9 kg (246 lb 12.8 oz) 10/05/2011 9:38 AM STUDENT OUTREACH COORDINATOR Height 179.1 cm (5' 10.5) 10/05/2011 9:38 AM STUDENT OUTREACH COORDINATOR Body Mass Index 34.91 10/05/2011 9:38 AM STUDENT OUTREACH COORDINATOR documented in this encounter Patient Instructions Patient InstructionsEdmond John MD - 10/05/2011 10:09 AM CST Images from the original note were not included. Diarrhea: After Your Visit Your Care Instructions Diarrhea is loose, watery stools (bowel movements). The exact cause of diarrhea is often hard to find. Sometimes diarrhea is your body's way to get rid of what caused an upset stomach. Viruses, food poisoning, and many medicines can cause diarrhea. Some people get diarrhea in response to emotional stress, anxiety, or certain foods. Almost everyone has diarrhea now and then. It usually isn't serious, and your stools will return to normal soon. The important thing to do is replace the fluids you have lost, so you can prevent dehydration. Follow-up care is a varghese part of your treatment and safety. Be sure to make and go to all appointments, and call your doctor if you are having problems. It???s also a good idea to know your test resultsand keep a list of the medicines you take. How can you care for yourself at home? ?? Watch for signs of dehydration, which means your body has lost too much water. Dehydration is a serious condition and should be treated right away. Signs of dehydration are: ?? Increasing thirst and dry eyes and mouth. ?? Feeling faint or lightheaded. ?? Darker urine, and a smaller amount of urine than normal. ?? To prevent dehydration, drink plenty of fluids, enough so that your urine is light yellow or clear like water. Choose water and other caffeine-free clear liquids until you feel better. If you have kidney, heart, or liver disease and have to limit fluids, talk with your doctor before you increase the amount of fluids you drink. ?? Begin eating small amounts of mild foods the next day, if you feel like it. ?? Try yogurt that has live cultures of Lactobacillus (check the label). ?? Avoid spicy foods, fruits, alcohol, and caffeine until 48 hours after all symptoms go away. ?? Avoid chewing gum that contains sorbitol. ?? Avoid dairy products (except for yogurt with Lactobacillus) while you have diarrhea and for 3 days after symptoms go away. ?? The doctor may recommend that you take holr-pkg-scltqbh medicine, such as loperamide (Imodium), if you still have diarrhea after 6 hours. Read and follow all instructions on the label. Do not use this medicine if you have bloody diarrhea, a high fever, or other signs of serious illness. Call your doctor if you think you are having a problem with your medicine. When should you call for help? Call 911 anytime you think you may need emergency care. For example, call if: ?? You passed out (lost consciousness). ?? Your stools are maroon or very bloody. Call your doctor now or seek immediate medical care if: ?? You are dizzy or lightheaded, or you feel like you may faint. ?? Your stools are black and look like tar, or they have streaks of blood. ?? You have new or worsening belly pain. ?? You have symptoms of dehydration, such as: ?? Dry eyes and a dry mouth. ?? Passing only a little dark urine. ?? Feeling thirstier than usual. ?? You have a new or higher fever. Watch closely for changes in your health, and be sure to contact your doctor if: ?? Your diarrhea is getting worse. ?? You see pus in the diarrhea. ?? You are not getting better after 2 days (48 hours). Where can you learn more? Go to [employer] and enter W335 in the search box. ?? [id number] [employer] Content Version: [id number]; Last Revised: May 06, 2010 ENT OUTREACH COORDINATOR documented in this encounter Progress Notes Edmond John MD - 10/05/2011 10:07 AM CST SUBJECTIVE: This 30 yr-old male is here for Chief Complaint Patient presents with ??? DIARRHEA 2 days ??? FEVER 103.5 last night, took tylenol last night no vomiting or blood in stool No travel or buffet dinners No one else sick with whom he has contact otherwise healthy Medication List, Problem List, and Past Medical History Reviewed as recorded in the Electronic Medical Record History Smoking status ??? Former Smoker Smokeless tobacco ??? Former User ??? Quit date: 07/16/2011 OBJECTIVE: BP 120/80 Pulse 100 Temp(Src) 97.6 ??F (36.4 ??C) (Oral) Resp 18 Ht 5' 10.5 (1.791 m) Wt 246 lb 12.8 oz (111.948 kg) BMI 34.91 kg/m2 Estimated Body mass index is 34.91 kg/(m^2) as calculated from the following: Height as of this encounter: 5' 10.5(1.791 m). Weight as of this encounter: 246 lb 12.8 oz(111.948 kg). Patient appears well in no acute distress. Alert No pallor or jaundice Rises from chair without dizziness Lips dry but oral mucosa and eyes moist Abdomen: mild diffuse tenderness, no guarding ASSESSMENT: 1. Diarrhea (787.91) 2. Fever (780.60BQ) PLAN: Orders Placed This Encounter ??? Stool culture ? ? Ova & parasite exam #1 ? ? Ova & parasite exam #2 ? ? Ova & parasite exam #3 ??? Giardia specific ag (1 collec Fluids, hydration See Patient Instructions RTC prn intractable vomiting or lethargy ENT OUTREACH COORDINATOR documented in this encounter Plan of Treatment Not on filedocumented as of this encounter Results OVA & PARASITE EXAM #2 (10/07/2011 11:55 AM STUDENT OUTREACH COORDINATOR) Component Value Ref Test Analysis Performed At [facility] [employer] Range Method Time Signature Specimen Stool [facility] Description Special Unspecified [facility] Requests Specimen Information [facility] Number Not Given Results No Parasites [facility] Found Results Moderate [facility] PMNs Seen Specimen Anatomical Collection Method Collection Time Receive d Time (Source) Location / / Volume Laterality Stool specimen 10/07/2011 11:55 2 (specimen) AM STUDENT OUTREACH COORDINATOR 11:58 AM STUDENT OUTREACH COORDINATOR Edmond John MD LAB_1 Performing Organization Address City/State/ZIP Code Phon e Number [facility] [phone] [facility] [address] [place] [phone] GIARDIA SPECIFIC AG (1 COLLEC (10/05/2011 4:27 PM STUDENT OUTREACH COORDINATOR) [facility] [employer] Method Time Signature Giardia Negative NEG [facility] Specific Ag. Specimen Anatomical Collection Method Collection Time Receive d Time (Source) Location / / Volume Laterality 10/05/2011 4:27 PM 2 4:37 STUDENT OUTREACH COORDINATOR PM STUDENT OUTREACH COORDINATOR Edmond John MD LAB_1 Performing Organization Address City/[facility]/ZIP Code Phon e Number [facility] [employer] [phone] [facility] [address] [place] [phone] OVA & PARASITE EXAM #1 (10/05/2011 4:27 PM STUDENT OUTREACH COORDINATOR) Component Value Ref Test Analysis Performed At [facility] gist Range Method Time Signature Specimen Stool [facility] Description Special Unspecified [facility] Requests Specimen 1 of 3 [facility] Number Collections Results No [facility]as[facility] Found Results Many PMNs Seen [facility] Specimen Anatomical Collection Method Collection Time Receive d Time (Source) Location / / Volume Laterality Stool specimen 10/05/2011 4:27 PM 012 4:37 (specimen) STUDENT OUTREACH COORDINATOR PM STUDENT OUTREACH COORDINATOR Edmond John MD LAB_1 Performing Organization Address [facility] Phon e Number [facility] [employer] [facility] [phone] [phone] (ABNORMAL) STOOL CULTURE (10/05/2011 4:27 PM STUDENT OUTREACH COORDINATOR) Component Value Ref Test Analysis Performed At [facility] [employer] Range Method Time Signature Specimen Stool [facility] Description Special Unspecified [facility] Requests Enzyme Negative for [facility] Immunoassay Shiga Toxin 1 and Shiga Toxin 2 Culture Campylobacter [facility] jejuni group Isolated Culture [facility] has reported this positive result to the [facility] Department of Health. Physicians are also required to repor t cases of this infection to [facility]. Culture No Salmonella, [facility] Shigella or E. coli 0157:H7 Isolated Culture This is considered a significant result. Clinical correlat ion is [facility] indicated. (A) Report Status Final 10/07/2011 [facility] Specimen Anatomical Collection Method Collection Time Receive d Time (Source) Location / / Volume Laterality Stool specimen 10/05/2011 4:27 PM 012 4:37 (specimen) STUDENT OUTREACH COORDINATOR PM STUDENT OUTREACH COORDINATOR Edmond John MD LAB_1 Performing Organization Address City/[facility]/ZIP Code Phon e Number [facility] [employer] [facility] [phone] [phone] documented in this encounter Visit Diagnoses Diagnosis Diarrhea - Primary Fever Fever, unspecified documented in this encounter Care Teams Diamond Sizer And Sorter Relationship Specialty Start Date End Date Rodolfo Ortega MD PCP - General Family Practice 10/22/10 [address] [place] [address] documented as of this encounter
--- OUTSIDE RECORDS SUMMARY | 2022-04-13 11:07 | XMS_ITS | Encounter Summary ---
:1980 Author Organization [facility] Address [address] [place] [address] Care Team Providers Name Role Phone Rodolfo Ortega MD Primary Care Provider Reason for Visit Reason Onset Date Comments UPDATE 10/07/2011 Encounter Details Date Type Department Care Team Description 10/07/2011 Telephone [facility] Ed[facility] John MD UPDATE Practice [address] [facility] [place] [address] [place] [address] [phone] Social History Tobacco Use Types Packs/Day Years Used Date Smoking Tobacco: Former Smokeless Tobacco: Former Qu it: 07/16/2011 Alcohol Use Standard Drinks/Week Comments Yes 0 (1 standard drink = 0.6 oz pure alcoho l) Sex Assigned at Date Recorded Not on file documented as of this encounter Nursing Notes Edmond John MD - 10/07/2011 1:07 PM CST Stool culture positive for Campylobacter. Talked to pt. He has diarrhea but no other symptoms. Online result comment: As we discussed probably from the sausage. Maintain hydration. Expect this illness to be self-limited. Report vomiting, fever, shaking chills, swollen joints, dark urine. No antibiotics needed. RD TABULATING CLERK Angella Saenz LPN - 10/07/2011 12:16 PM CST Received a call from Kait at [facility] that pt has a critical lab value. Pt tested positive forcampylobacter jejuni group in his stool. Angella Sanchez LPN 10/07/2011, 12:[address] TABULATING CLERK Angella Saenz LPN - 10/07/2011 11:[address] John, do you have any other specific questions for this pt or is this enough information? Angella Sanchez LPN 10/07/2011, 11:[address] TABULATING CLERK Ailyn Allen - 10/07/2011 8:11 AM CST Patient calling to update Dr John after Mondays visit. All conditions have improved except diarrhea, no worse but not better. RD TABULATING CLERK documented in this encounter Plan of Treatment Not on filedocumented as of this encounter Visit Diagnoses Not on filedocumented in this encounter Care Teams Chucking Lathe Operator Relationship Specialty Start Date End Date Rodolfo Ortega MD PCP - General Family Practice 10/22/10 10/02/14 [address] [place] [id number] documented as of this encounter
--- OUTSIDE RECORDS SUMMARY | 2022-04-13 11:07 | XMS_ITS | Encounter Summary ---
:1980 Author Organization [facility] Address [address] [place] [address] Care Team Providers Name Role Phone Rodolfo Ortega MD Primary Care Provider Reason for Visit Reason Onset Date Comments LAB RESULTS 10/23/2010 Encounter Details Date Type Department Care Team Description 10/23/2010 Telephone [facility] Rodolfo Ortega MD LAB RESULTS [address] [place] [address] [place] [address] [phone] Social History Tobacco Use Types Packs/Day Years Used Date Smoking Tobacco: Every Day Smokeless Tobacco: Never Comments: 1 pk per wk Alcohol Use Standard Drinks/Week Comments Not Asked 0 (1 standard drink = 0.6 oz pure alcoho l) Sex Assigned at Date Recorded Not on file documented as of this encounter Nursing Notes Rodolfo Ortega MD - 10/29/2010 1:05 PM CDT Reviewed test results, abnormal liver test needs to be repeated with no alcohol for 10 days, reviewed other possible causes of abnormal liver tests that will need to be evaluated if test continues to be abnormal. Reviewed elevated hemoglobin and possible causes, especially smoking and the types of problems that elevated hemoglobin can cause. Advised DC smoking and recheck hemoglobin in six months. Rodolfo Ortega MD - 10/27/2010 8:13 PM CDT NALM Rodolfo Ortega MD - 10/24/2010 7:12 PM CST NALM LOGY ADMIN Rodolfo Ortega MD - 10/24/2010 3:05 PM CST NALM will call back Mild abnormalities LOGY ADMIN Danica Meyer RN - 10/23/2010 1:13 PM CST Called and advised patient lab tests from yesterday were still in process. Advised patient will watch for results and give him a call as soon as final. Danica Meyer RN 10/23/2010, 1:13 PM LOGY ADMIN Brandi Hanson - 10/23/2010 12:27 PM CST Results Questions: What test are you calling about: lab Who ordered it: kareem Where was the test done: [place] When did you have it done: 10/22/2010 Is it okay to leave detailed message on your voicemail? no If after 3pm, can this wait until tomorrow? Pt told: If you have online patient services you can receive your results online. (only available for 12 years and younger and 18 years and older) LOGY ADMIN documented in this encounter Plan of Treatment Not on filedocumented as of this encounter Visit Diagnoses Not on filedocumented in this encounter Care Teams Post Anesthesia Nurse Relationship Specialty Start Date End Date Rodolfo Ortega MD PCP - General Family Practice 10/22/10 10/02/[address] [place] [address] documented as of this encounter
--- OUTSIDE RECORDS SUMMARY | 2022-04-13 11:07 | XMS_ITS | Encounter Summary ---
:1980 Author Organization [facility] Address [address] [place] [address] Care Team Providers Name Role Phone Ramin Edge PA-C Primary Care Provider Unavailable Reason for Visit Reason Comments SWELLING right ear and jaw swelling s haydee 10-01-14, painful to the [facility] Maintanence Declined BP,ELEVATED bp 149/83 Encounter Details Date Type Department Care Team Description 10/03/2014 Office Visit [facility] Ramin Edge Superfic ial skin infection (Primary Dx); Practice CESAR Localized superficial swelli ng, mass, or lump [address] [phone] Social History Tobacco Use Types Packs/Day Years Used Date Smoking Tobacco: Former Smokeless Tobacco: Former Qu it: 07/16/2011 Alcohol Use Standard Drinks/Week Comments Yes 0 (1 standard drink = 0.6 oz pure alcoho l) Sex Assigned at Date Recorded Not on file documented as of this encounter Last Filed Vital Signs Vital Sign Reading Time Taken Comments Blood Pressure 148/88 10/03/2014 12:14 PM SUMMONS SERVER Pulse 88 10/03/2014 11:23 AM SUMMONS SERVER Temperature 36.9 ??C (98.5 ??F) 10/03/2014 11:23 AM SUMMONS SERVER Respiratory Rate - - Oxygen Saturation - - Inhaled Oxygen Concentration - - Weight 105.7 kg (233 lb) 10/03/2014 11:23 AM SUMMONS SERVER Height 177.8 cm (5' 10) 10/03/2014 11:23 AM SUMMONS SERVER Body Mass Index 33.43 10/03/2014 11:23 AM SUMMONS SERVER documented in this encounter Patient Instructions Patient InstructionsRamin Edge PA-C - 10/03/2014 12:11 PM CST Doxycycline twice daily for infection on scalp Lymph node should decrease in size as infection improves Follow up if symptoms worsen or fail to resolve Ramin Edge PA-C ONS SERVER documented in this encounter Progress Notes Ramin Edge PA-C - 10/03/2014 12:38 PM CST CC: Chief Complaint Patient presents with ??? SWELLING right ear and jaw swelling since 10-01-14, painful to the touch ??? Health Maintanence Declined ??? BP,ELEVATED bp 149/83 Subjective: Benjamin Orosco is a 33 yr old male presenting with concerns of swelling and discomfort below right ear near angle of jaw. Patient denies any associated redness in this area. Noticed swelling upon waking on 10/01/2014. Denies any cold symptoms. He does report noticing a tender area on his superior scalp. Denies any drainage or discharge from this area. Patient reports he is otherwise feeling well. Denies any fever, nausea, vomiting. Patient Active Problem List Diagnosis ??? Persistent Disorder of Initiating or Maintaining Sleep ??? Alcohol Dependence, in short term Remission ??? Anxiety Disorder NOS ??? Depression, recurrent Allergies Allergen Reactions ??? Other Rash Nickel allergy ??? Penicillin And Derivatives Outpatient Prescriptions Prior to Visit Medication Sig Dispense Refill ??? citalopram (AKA CELEXA) 20 MG tablet Take 1 Tab by mouth daily. 30 Tab 11 ??? OMEPRAZOLE (PRILOSEC) 10MG ORAL CAPS Take one capsule by mouth every day. ??? WELLBUTRIN XL 300 MG 24 hour release tablet TAKE ONE TABLET BY MOUTH EVERY DAY 90 Tab 3 No facility-administered medications prior to visit. Objective: BP 148/88 Pulse 88 Temp(Src) 98.5 ??F (36.9 ??C) (Oral) Ht 5' 10 (1.778 m) Wt 233 lb (105.688 kg) BMI 33.43 kg/m2 General: Calm, in NAD. Examination reveals swollen lymph node posterior and inferior to right ear. No redness or swelling of the ear. Otoscope exam is unremarkable. Examination of scalp reveals erythematous, cracked area of skin (approximately 2 cm in diameter), tender to palpation. No active drainagenoted. HEENT exam is overall unremarkable. Assessment/Plan: Benjamin was seen today for swelling, health maintanence declined and bp,elevated. Diagnoses and associated orders for this visit: Superficial skin infection - doxycycline monohydrate (AKA MONODOX) 100 MG capsule; Take 1 Cap by mouth two times a day for 7 days. Localized superficial swelling, mass, or lump - HEMOGRAM/PLTS; Future Doxycycline twice daily for infection on scalp Lymph node should decrease in size as infection improves Follow up if symptoms worsen or fail to resolve Patient was also examined by Dr. Holm. Plan was agreed upon. Ramin Edge PA-C This note was dictated using a voice recognition software. Therefore, unintended word substitutionsmay be present. ONS SERVER documented in this encounter Plan of Treatment Not on filedocumented as of this encounter Results HEMOGRAM/PLTS (10/03/2014 11:44 AM SUMMONS SERVER) athologist Signature WBC 8.0 4.0 - 11.0 [...] / Volume Laterality 10/03/2014 11:44 10/03/2014 AM SUMMONS SERVER 11:48 AM SUMMONS SERVER Narrative [facility] - 10/03/2014 12:01 PM SUMMONS SERVER Performed at [facility], [address] [place] [address] ??[id number] Ramin Edge PA-C LAB_1 Performing Organization Address City/State/ZIP Code Phon e Number [facility] [phone] documented in this encounter Visit Diagnoses Diagnosis Superficial skin infection - Primary Unspecified local infection of skin and subcutaneous tissue Localized superficial swelling, mass, or lump Localized superficial swelling, mass, or lump documented in this encounter Care Teams Siding Mechanic Relationship Specialty Start Date End Date Ramin Edge PA-C PCP - General Physician Para Professional 10/03/14 11/25/14 documented as of this encounter
--- OUTSIDE RECORDS SUMMARY | 2022-04-13 11:07 | XMS_ITS | Encounter Summary ---
:1980 Author Organization [facility] Address [address] [address] Care Team Providers Name Role Phone Rodolfo Ortega MD Primary Care Provider Reason for Visit Reason Onset Date Comments QUESTIONS, GENERAL 10/12/2011 Encounter Details Date Type Department Care Team Description 10/12/2011 Telephone [facility] John, QUESTIONS, oracle applications developer [address] [facility], [place] [address] [place], [place] [phone] (Wo rk) Social History Tobacco Use Types Packs/Day Years Used Date Smoking Tobacco: Former Smokeless Tobacco: Former Qu it: 07/16/2011 Alcohol Use Standard Drinks/Week Comments Yes 0 (1 standard drink = 0.6 oz pure alcoho l) Sex Assigned at Date Recorded Not on file documented as of this encounter Nursing Notes Edmond John MD - 10/12/2011 12:50 PM CST I gave Dept of Health pt's phone #'s (I had previously discussed this with pt) I told them he was not hospitalized and that I did not treat with antibiotics. OM HOOP DRIVER Ailyn Allen - 10/12/2011 10:31 AM CST Calling from Dept of Health, patient tested positive for food born illness, needs more information. OM HOOP DRIVER documented in this encounter Plan of Treatment Not on filedocumented as of this encounter Visit Diagnoses Not on filedocumented in this encounter Care Teams Cancer Genetic Counselor Relationship Specialty Start Date End Date Rodolfo Ortega MD PCP - General Family Practice 10/22/10 10/02/14 [address] [place] [address] documented as of this encounter
--- OUTSIDE RECORDS SUMMARY | 2022-04-13 11:07 | XMS_ITS | Encounter Summary ---
:1980 Author Organization [facility] Address [address] [place] [address] Care Team Providers Name Role Phone Rodolfo Ortega MD Primary Care Provider Encounter Details Date Type Department Care Team Description 10/24/2010 Orders Only [facility] Rodolfo Ortega, Abnormal liver [address] Hernandez MD function (Primary Dx) [address] [place] [address] [phone] Social History Tobacco Use Types Packs/Day Years [...] as of this encounter Visit Diagnoses Diagnosis Abnormal liver function - Primary Unspecified disorder of liver documented in this encounter Care Teams Workforce Planner Relationship Specialty Start Date End Date Rodolfo Ortega MD PCP - [facility] 10/22/10 10/02/14 [address] [place], [place] [phone] documented as of this encounter
--- OUTSIDE RECORDS SUMMARY | 2022-04-13 11:07 | XMS_ITS | Encounter Summary ---
:1980 Author Organization [employer] Address [address] [place] [id number] Care Team Providers Name Role Phone Rodolfo Ortega MD Primary Care Provider Encounter Details Date Type Department Care Team Description [facility]17[facility]2013 [facility] [address] [place], [place] [address] Social History Tobacco Use Types Packs/Day Years Used Date Smoking Tobacco: Former Smokeless Tobacco: Former Qu it: 07/16/2011 Alcohol Use Standard Drinks/Week Comments Yes 0 (1 standard drink = 0.6 oz pure alcoho l) Sex Assigned at Date Recorded Not on file documented as of this encounter Progress Notes Arcenio Macario - 08/17/2013 5:15 PM TELESALES CONSULTANT Addended by: ARCENIO MACARIO on: 08/17/2013 05:15 PM Modules accepted: Orders SALES CONSULTANT documented in this encounter Nursing Notes Yi Drake, NATALIE - 08/17/2013 1:07 PM CST Spoke with patient. Patient informed of signs and symptoms of serotonin syndrome. Patient also awarethat he needs to have a follow up ECG within a few weeks of starting treatment of taking Celexa and Wellbutrin together.Patient verbalizes understanding of plan of care. He has no other questions or concerns at this time. Yi Drake RN 08/17/2013, 1:10 PM SALES CONSULTANT Ramin Edge PA-C - 08/17/2013 12:46 PM CST Wellbutrin was added to patient's current medication regimen which includes Celexa. Celexa and Wellbutrin together can increased risk for serotonin syndrome. This can be a serious syndrome, symptoms can include increased heart rate, sweating, high blood pressure, hyperthermia. Patient to followup immediately if these symptoms occur. Combination can also increase risk for QT prolongation. Patient should have electrocardiogram completed within the first few weeks of new treatment. This has been ordered. Ramin Edeg SALES CONSULTANT documented in this encounter Plan of Treatment Scheduled Orders Name Type Priority Associated Diagnoses Order S chedule ECG 12-LEAD ROUTINE EKG Routine Screening Expected : 08/17/2013, Expires: 09/17/2013 documented as of this encounter Visit Diagnoses Diagnosis Screening - Primary Screening for unspecified condition documented in this encounter Care Teams Chocolate Packer Relationship Specialty Start Date End Date Rodolfo Ortega MD PCP - General Family Practice 10/22/10 10/02/14 [address] [place], [place] [id number] documented as of this encounter
--- OUTSIDE RECORDS SUMMARY | 2022-04-13 11:07 | XMS_ITS | Encounter Summary ---
:1980 Author Organization [employer] Address [address] [place] [address] Care Team Providers Name Role Phone Rodolfo Ortega MD Primary Care Provider Reason for Visit Reason Comments DEPRESSION Health Maintanence Declined Encounter Details Date Type Department Care Team Description 12/14/2012 Office Visit [facility] Ramin Edge Depressi on with Practice CESAR anxiety (Primary Dx) [address] [place], [place] [address] Social History Tobacco Use Types Packs/Day Years Used Date Smoking Tobacco: Former Smokeless Tobacco: Former Qu it: 07/16/2011 Alcohol Use Standard Drinks/Week Comments Yes 0 (1 standard drink = 0.6 oz pure alcoho l) Sex Assigned at Date Recorded Not on file documented as of this encounter Last Filed Vital Signs Vital Sign Reading Time Taken Comments Blood Pressure 130/94 12/14/2012 9:02 AM CDT Pulse 87 12/14/2012 9:02 AM CDT Temperature - - Respiratory Rate - - Oxygen Saturation - - Inhaled Oxygen Concentration - - Weight 112 kg (247 lb) 12/14/2012 9:02 AM CDT Height 177.8 cm (5' 10) 12/14/2012 9:02 AM CDT Body Mass Index 35.44 12/14/2012 9:02 AM CDT documented in this encounter Patient Instructions Patient InstructionsRamin Edge PA-C - 12/14/2012 9:20 AM CDT Start Celexa once daily Follow up in 4-6 weeks to reevaluate Followup sooner symptoms worsen Ramin Edge PA-C Let???s Talk Facts About Depression What Is Depression? Depression is a serious medical illness that negatively affects how you feel, the way you think and how you act. Depression has a variety of symptoms, but the most common are a deep feeling of sadness or a marked loss of interest or pleasure in activities. Other symptoms include: ?? Changes in appetite that result in weight losses or gains unrelated to dieting ?? Insomnia or oversleeping ?? Loss of energy or increased fatigue ?? Restlessness or irritability ?? Feelings of worthlessness or inappropriate guilt ?? Difficulty thinking, concentrating, or making decisions ?? Thoughts of or suicide or attempts at suicide Depression is common. It affects nearly one in 10 adults each year--nearly twice as many women as men. It???s also important to note that depression can strike at any time, but on average, first appears during the late teens to mid-20s. Depression is also common in older adults. Fortunately, depression is very treatable. How Depression and Sadness Are Different The of a loved one, loss of a job, or the ending of a relationship are difficult experiences for a person to endure. It is normal for feelings of sadness or grief to develop in response to such stressful situations. Those experiencing trying times often might describe themselves as being ???depre ssed.?? But sadness and depression are not the same. While feelings of sadness will lessen with time, the disorder of depression can continue for months, even years. Patients who have experienced depression note marked differences between normal sadness and the disabling weight of clinical depression. Depression depression--an illness associated with the delivery of a child--is caused by changes in hormones and can run in families. It is distinguished from ???baby blues?? --an extremely common reaction following delivery--both by its duration and the debilitating effects of indifference the mother has about herself and her children. About one in 10 new mothers experience some degree of depression; women with severe premenstrual syndrome are more likely to suffer from it. Women with depression love their children but may be convinced that they are not able to be good mothers. Let???s Talk Facts About Depression ?? Copyright 2009 [employer] What Causes Depression? Depression can affect anyone--even a person who appears to live in relatively ideal circumstances. But several factors can play a role in the onset of depression: Biochemistry. Abnormalities in two chemicals in the brain, serotonin and norepinephrine, might contribute to symptoms of depression, including anxiety, irritability and fatigue. Other brain networks undoubtedly are involved as well; scientists are actively seeking new knowledge in this area. Genetics. Depression can run in families. For example, if one identical twin has depression, the other has a 70% chance of having the illness sometime in life. Personality. People with low self-esteem, who are easily overwhelmed by stress, or who are generallypessimistic appear to be vulnerable to depression. Environmental factors. Continuous exposure to violence, neglect, abuse or poverty may make people who are already susceptible to depression all the more vulnerable to the illness. Also, a medical condition (e.g., a brain tumor or vitamin deficiency) can cause depression, so it isimportant to be evaluated by a psychiatrist or other physician to rule out general medical causes. How Is Depression Treated? For many people, depression cannot always be controlled for any length of time simply by exercise, changing diet, or taking a vacation. It is, however, among the most treatable of mental disorders: between 80% and 90% of people with depression eventually respond well to treatment, and almost all patients gain some relief from their symptoms. Before a specific treatment is recommended, a psychiatrist should conduct a thorough diagnostic evaluation, consisting of an interview and possibly a physical examination. The purpose of the evaluationis to reveal specific symptoms, medical and family history, cultural settings and environmental facto rs to arrive at a proper diagnosis and to determine the best treatment. Medication: Antidepressants may be prescribed to correct imbalances in the levels of chemicals in the brain. These medications are not sedatives, ???uppers?? or tranquilizers. Neither are they habit-forming. Generally antidepressant medications have no stimulating effect on those not experiencing depression. Antidepressants may produce some improvement within the first week or two of treatment. Full benefits may not be realized for two to three months. If a patient feels little or no improvement after several weeks, his or her psychiatrist will alter the dose of the medication or will add or substitute ano ther antidepressant. Psychiatrists usually recommend that patients continue to take medication for six or more months after symptoms have improved. After two or three episodes of major depression, long-term maintenance treatment may be suggested to decrease the risk of future episodes. Psychotherapy: Psychotherapy, or ???talk therapy,?? is sometimes used alone for treatment of mild depression; for moderate to severe depression, it is often used in combination with antidepressant medications. Psychotherapy may involve only the individual patient, but it can include others. For example, family or couples therapy can help address specific issues arising within these close relationships. Group therapy involves people with similar illnesses. Depending on the severity of the depression, treatment can take a few weeks or substantially longer.However, in many cases, significant improvement can be made in 10 to 15 sessions. Conclusion Depression is never normal and always produces needless suffering. With proper diagnosis and treatment, the vast majority of people with depression will overcome it. If you are experiencing symptoms ofdepression, see your family physician or psychiatrist, describe your concerns and request a thorough evaluation. You will feel better. Resources For more information, please contact: [employer] (APA) [address], [address] [place] [address] [email or web address] Depression and Bipolar Support [facility] (DBSA) [address], [address] [place] [address] [email or web address] National [facility] on Mental Illness (JOSÉ MIGUEL) [facility] [address], [address] [place] [address] Information Helpline: 436-378-IIMJ (2752) [email or web address] Mental Health [facility] (MHA) [address] [place] [address] [phone]-MHA (8879) www.mentalhealthamerica.net One in a series of brochures designed to reduce stigma associated with mental illnesses by promotinginformed factual discussion of the disorders and their psychiatric treatments. This brochure was developed for educational purposes and does not necessarily reflect opinion or policy of the [employer]. For more information, please visit [email or web address]. Created 12/18 Date of Last Revision 12/22 ?? Copyright 2009 [employer] documented in this encounter Progress Notes Ramin Edge PA-C - 12/14/2012 1:02 PM CDT CC: Chief Complaint Patient presents with ??? DEPRESSION ??? Health Maintanence Declined Subjective: Benjamin Orosco is a 32 yr old male presenting with concerns of depression with anxiety. Patient reports long history of intermittent depression with anxiety since adolescence. Reports he did take medication for a short period of time several years ago, believes he took Zoloft with modest benefit. Patient is not taking any medications at this time, no therapy currently. Patient has a [id number] at home, feels he needs to address these issues to give her a good home environment. Patient reports rare panic attacks. Symptoms are primarily depressive state with associated generalized anxiety. PHQ-9 score of 11 GAD7 score of 11. Patient is interested in medication, wishes to avoid therapy at this time. Patient has stable job, states symptoms have not significantly interfered with his work. Patient stopped smoking prior to his daughter being born. He has significantly curtailed any alcohol use. Patient Active Problem List Diagnosis ??? Persistent Disorder of Initiating or Maintaining Sleep ??? Alcohol Dependence, in short term Remission ??? Anxiety Disorder NOS Allergies Allergen Reactions ??? Other Rash Nickel allergy ??? Penicillin And Derivatives Outpatient Prescriptions Prior to Visit Medication Sig Dispense Refill ??? OMEPRAZOLE (PRILOSEC) 10MG ORAL CAPS Take one capsule by mouth every day. ??? gabapentin (AKA NEURONTIN) 300 MG capsule one capsule three times daily as needed for anxiety; may increase to two capsules three times daily as needed 10 0 ??? ondansetron (AKA ZOFRAN) 8 MG tablet Take 1 Tab by mouth every 8 hours as needed for Nausea. 10 Tab 0 No facility-administered medications prior to visit. Objective: BP 130/94 Pulse 87 Ht 5' 10 (1.778 m) Wt 247 lb (112.038 kg) BMI 35.44 kg/m2 General: Casually dressed. Patient is alert and oriented times three. Good eye contact. No psychomotor abnormalities. Mood is appropriate, Recent and remote memory intact. Insight and judgement intact. Cooperative. Skin: [place] warm and dry. Assessment/Plan: Benjamin was seen today for depression and health maintanence declined. Diagnoses and associated orders for this visit: Depression with anxiety - citalopram (AKA CELEXA) 20 MG tablet; Take 1 Tab by mouth daily. Start Celexa once daily Follow up in 4-6 weeks to reevaluate Followup sooner symptoms worsen Ramin Edge PA-C documented in this encounter Plan of Treatment Not on filedocumented as of this encounter Visit Diagnoses Diagnosis Depression with anxiety ([facility]) - Primary Dysthymic disorder documented in this encounter Care Teams Playground Director Relationship Specialty Start Date End Date Rodolfo Ortega MD PCP - General Family Practice 10/22/10 10/02/14 [address] [place], [place] [id number] documented as of this encounter
--- OUTSIDE RECORDS SUMMARY | 2022-04-13 11:07 | XMS_ITS | Encounter Summary ---
:1980 Author Organization [employer] Address [address] [place] [address] Care Team Providers Name Role Phone Rodolfo Ortega MD Primary Care Provider Reason for Visit Reason Comments BLOATED Abd x 10 d with ? constipati on but normal BM today Encounter Details Date Type Department Care Team Description 10/22/2010 Office Visit [facility] Rodolfo Ortega, Bloating (Primary Dx); [address] Milana Hernandez MD Irritable bowel [address] [place] [id number] Social History Tobacco Use Types Packs/Day Years Used Date Smoking Tobacco: Every Day Smokeless Tobacco: Never Comments: 1 pk per wk Alcohol Use Standard Drinks/Week Comments Not Asked 0 (1 standard drink = 0.6 oz pure alcoho l) Sex Assigned at Date Recorded Not on file documented as of this encounter Last Filed Vital Signs Vital Sign Reading Time Taken Comments Blood Pressure 140/88 10/22/2010 3:36 PM COLLECTION ANALYST Pulse 76 10/22/2010 3:36 PM COLLECTION ANALYST Temperature 37 ??C (98.6 ??F) 10/22/2010 3:36 PM COLLECTION ANALYST Respiratory Rate - - Oxygen Saturation - - Inhaled Oxygen Concentration - - Weight 112.1 kg (247 lb 3.2 oz) 10/22/2010 3:36 PM COLLECTION ANALYST Height 177.8 cm (5' 10) 10/22/2010 3:36 PM COLLECTION ANALYST Body Mass Index 35.47 10/22/2010 3:36 PM COLLECTION ANALYST documented in this encounter Patient Instructions Patient InstructionsBaRodolfo bullock MD - 10/22/2010 4:07 PM CST Irritable Bowel Syndrome The following information has been prepared to improve your understanding of a common problem calledirritable bowel syndrome (IBS). Your physician or other health insurance healthcare representative at [facility] will answer additional questions you may have. Q: What is IBS? A: IBS is a collection of symptoms related to a bowel habit disorder. It most commonly includes some, though not necessarily all, of the following complaints: abdominal pain, bloating, irregular bowel habits, diarrhea, constipation or both. Sometimes nausea and excess gas occur. Q: Is IBS rare? A: IBS is very common. It affects about 20 million people in the [place], though some experience more distressing symptoms than others. Q: Who is affected by IBS? A: It appears that IBS is an equal opportunity affliction. Neither race, sex, nor occupation excludes one from the mischief of this syndrome. Q: What causes IBS? A: This question cannot be completely answered at this time though active research continues to provide new insights. Current evidence holds that alterations in the colon's movement patterns produce the symptoms of IBS. The colon or large intestine is a muscular tube representing the last five or so feet of digestive tract. It is responsible for three important activities: ?? storing of food waste ?? recovering water from the waste products ?? evacuating the waste at appropriate intervals These functions are aided by muscular contractions, initiated and coordinated by electrical pacemaker cells like those in the heart. Although many disease processes disrupt the colon functions through known mechanisms (e.g. diarrhea from infections or bowel obstruction from cancer), the cause of irregular and sometimes spastic contractions in IBS remains unexplained. However, when these poorly coordinated or spasmodic contractions result in too rapid emptying of the colon, unabsorbed water will givethe waste a liquid appearance. Or, if emptying is delayed and too much water is withdrawn, an expected drying and hardening of the feces occurs. Q: That explains the change in bowel habit; what about the pain? A: Discomfort during a bowel movement is more easily understood. Indeed, temporarily, it may be similar to discomfort experienced with infectious diarrheas, bowel obstruction, etc. It appears related to spasmodic contractions or distension of bowel loops, which produces a very uncomfortable sensation. Because this distorting effect can occur without precipitating a bowel movement, pain may be experienced apart from defecation. Q: Does IBS lead to more serious bowel disorders or cancer? A: NO! You are no more likely to acquire these serious illnesses than people without IBS. Q: Is there any pattern to the symptoms? A: Yes, recurrent episodes tend to follow similar patterns individual to individual. They may be present most days or only flare periodically. Unfortunately, however, symptoms often crop up when least desired during stressful or anxious periods. Q: If symptoms are provoked by stress or anxiety, does that mean the symptoms are imagined or the patient emotionally disturbed? A: No, the symptoms are very real and often occur without evidence of stress. Also, though stress plays an important role for many persons with IBS, occurrence certainly does not signify emotional illness. Nearly all of us experience anxiety, frustration, tension, apprehension and other similar emotion s in our day-to-day lives. Those with IBS simply may notice intensified symptoms during these tdh-pn-[id number] moments. Q: How can my health care provider be certain that my symptoms are those of IBS? A: By ruling out serious disorders whose symptoms may be similar. A careful history and physical exam and selected laboratory and x-ray procedures will be done. Q: What about treatment: Can IBS be cured? A: Unfortunately, no medical or surgical cure is recognized for IBS. Fortunately, the symptoms can usually be well controlled, permitting a happy, active life. First and foremost, it is very important to recall that IBS does not lead to other important illnesses and will not shorten your life span. Itis an important disorder because of discomfort, annoyance, inconvenience, and its frequent occurrence in our population, not because of its threat to our health. There are three additional important elements in the treatment of IBS: (1) diet, (2) lifestyle, and (3) drug therapy. Collectively, they work to control the symptoms of IBS. A regular, predictable bowel habit without watery or dry marble-like stool can be achieved by eating appropriate quantities of fiber and liquids. Cooked and canned fruits and vegetables, fresh soft pulp fruit, and whole grain breads and cereals represent the best food sources of fiber. Because each of us has different fiber requirements, as well as food preferences, high-fiber supplements are often used as versatile and convenient sources of fiber. These include bran and psyllium powder. Q: How much fiber is required? I've tried it in the past without any benefit. A: The appropriate quantity must be individualized since each of us has a different need. A predictable habit of easily moved, formed stools is the goal. Because of the delay in transit through the bowel, a change in fiber intake may not have a recognizable effect on stool consistency for several days. Inadequate dose and/or duration of treatment are the most frequent explanations for past failures with bulk forming agents. Q: What about lifestyle and medication? A: As we discussed earlier, emotional stresses are an expected accompaniment to life. These experiences heighten our awareness of bodily ailments and in particular seem to accentuate the symptoms of IBS. Many physicians and scientists believe that these stresses will also provoke or initiate a flare in symptoms of IBS. Although many patients with IBS are advised to avoid stress, this is often unrealistic. Much more helpful are techniques designed to directly address these problems we all encounter. Many professionals within and outside the health care field are available to assist in this regard. Finally, there are medications which help in lessening severe symptoms without primary effects on the stool. These are often referred to as antispasmodic drugs since their effect on the colon is usually one of relaxation and decreased activity. They are usually quite safe when used on a short-term basis under a physician's guidance. They complement, but rarely replace, other therapies discussed above. Copyright . 2002 [email or web address]. ECTION ANALYST documented in this encounter Progress Notes Rodolfo Ortega MD - 10/22/2010 5:43 PM CST SUBJECTIVE: BENJAMIN OROSCO is a 29 yr old male for abdominal bloating and pressure for 10 days. Bowel movements have been mildly abnormal in that he has had a bowel movement only every other day, but the stools have been soft and easy to move. No abdominal pain nausea vomiting blood or mucus in the stool. No past history of significant abdominal problems. He does have a history of gastroesophageal reflux disease and uses Prilosec regularly. Past history is positive for anxiety disorder and insomnia problems and alcohol dependence. Current caffeine and alcohol use are mild to moderate. Alcohol primarily on the weekends. 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 Exercises regularly either stationary bicycle or outdoor biking Denies chest pain shortness of breath palpitations weight loss fever chills foreign travel. Reviewed social history and past medical history OBJECTIVE: BP 140/88 Pulse 76 Temp 98.6 ??F (37 ??C) Ht 5' 10 (1.778 m) Wt 247 lb 3.2 oz (112.129 kg) Appears well. Next a pole normal thyroid small nodes, lungs clear to P&A back no percussion tenderness abdomen soft no masses tenderness organomegaly extremities no edema ASSESSMENT: 1. Bloating (787.3Y) most likely irritable bowel syndrome and aerophagia 2. Irritable bowel (564.1Y) PLAN: See orders and patient instructions. Basic labs screening. Advise eating slowly with mouth closed. Avoid swallowing air. Followup for worsening problem. Rodolfo Ortega MD ECTION ANALYST documented in this encounter Plan of Treatment Not on filedocumented as of this encounter Procedures Procedure Name Priority Date/Time Associated Diagnosis Comme nts COMPLETE BLOOD Routine 10/22/2010 4:13 PM Bloating Results for this COUNT-W/DIFF COLLECTION ANALYST Irritable bowel procedure ar e in the results section. AST Routine 10/22/2010 4:13 PM Bloating Results for this COLLECTION ANALYST Irritable bowel procedure ar e in the results section. ESR Routine 10/22/2010 4:13 PM Bloating Results for this COLLECTION ANALYST Irritable bowel procedure ar e in the results section. documented in this encounter Results (ABNORMAL) AST (10/22/2010 4:13 PM COLLECTION ANALYST) athologist Signature AST (SGOT) 67 (H) 0 - 55 U/L [facility] 2020 Specimen Anatomical Collection Method Collection Time Receive d Time (Source) Location / / Volume Laterality 10/22/2010 4:13 PM 1 4:18 COLLECTION ANALYST PM COLLECTION ANALYST Rodolfo Ortega MD LAB_1 Performing Organization Address City/State/ZIP Code Phon e Number [facility] [phone] [facility] [address] [phone] ESR (10/22/2010 4:13 PM COLLECTION ANALYST) P athologist Signature ESR 2 0 - 15 [facility] mm/hr Specimen Anatomical Collection Method Collection Time Receive d Time (Source) Location / / Volume Laterality 10/22/2010 4:13 PM 1 4:18 COLLECTION ANALYST PM COLLECTION ANALYST Rodolfo Ortega MD LAB_1 Performing Organization Address City/[facility]/ZIP Code Phon e Number [employer] [phone] [facility] [address] [phone] (ABNORMAL) HEMOGRAM/PLTS/DIFF (10/22/2010 4:13 PM COLLECTION ANALYST) [facility] gist Method Time Signature WBC 8.4 4.0 - [facility] 11.0 k/ul RBC 5.91 (H) 4.5 - 5.9 [facility] M/ul Hemoglobin 18.5 (H) 13.5 - [facility] 17.5 g/dl HCT 52.2 41.0 - [facility] 53.0 % MCV 88.3 80 - 100 [facility] fl MCH 31.3 26 - 34 [facility] pg MCHC 35.5 32 - 36 [facility] g/dl RDW 12.6 11.5 - [facility] 14.5 % Platelets 225 150 - 450 [facility] k/ul PMN/Band 58 43 - 72 % [facility] Lymph 34 17 - 43 % [facility] Snyder 6 4 - 12 % [facility] Eos 2 0 - 8 % [facility] Baso 1 0 - 1 % [facility] Neutrophil 4.9 1.8 - 7.7 [facility] Absolute k/ul Lymph Absolute 2.8 1.0 - 4.8 [facility] k/ul Snyder Absolute 0.5 0.1 - 0.7 [facility] k/ul Eos Absolute 0.2 0.0 - 0.5 [facility] k/ul Baso Absolute 0.1 0.0 - 0.2 [facility] k/ul Specimen Anatomical Collection Method Collection Time Receive d Time (Source) Location / / Volume Laterality 10/22/2010 4:13 PM 1 4:18 COLLECTION ANALYST PM COLLECTION ANALYST Rodolfo Ortega MD LAB_1 Performing Organization Address City/[facility]/ZIP Code Phon e Number [facility] [phone] [facility] [address] [phone] documented in this encounter Visit Diagnoses Diagnosis Bloating - Primary Flatulence, eructation, and gas pain Irritable bowel Irritable bowel syndrome documented in this encounter Care Teams Net Lead Developer Relationship Specialty Start Date End Date Rodolfo Ortega MD PCP - General Family Practice 10/22/10 2 [address] [place] [address] documented as of this encounter
--- OUTSIDE RECORDS SUMMARY | 2022-04-13 11:07 | XMS_ITS | Encounter Summary ---
:1980 Author Organization [facility] Address [address] [place] [address] Care Team Providers Name Role Phone Rodolfo Ortega MD Primary Care Provider Reason for Visit Reason Onset Date Comments FLU, STOMACH 04/27/2012 Encounter Details Date Type Department Care Team Description 04/27/2012 Telephone Careline Rodolfo Ortega MD FLU, STOMACH [address] [place], [place] [address] [place] [address] [phone] Social History Tobacco Use Types Packs/Day Years Used Date Smoking Tobacco: Former Smokeless Tobacco: Former Qu it: 07/16/2011 Alcohol Use Standard Drinks/Week Comments Yes 0 (1 standard drink = 0.6 oz pure alcoho l) Sex Assigned at Date Recorded Not on file documented as of this encounter Nursing Notes Hilaria Lackey RN - 04/28/2012 10:22 AM CDT Kanchan, yaw is a nurse with [facility] calling. We were just calling to follow-up on a recent call to the CareLine. If you have any further needs or wish to speak with a CareLine nurse please feel free to give us a call back anytime. Thank you. Hilaria Rush RN NYT Lydia Cunningham RN - 04/27/2012 4:47 PM CDT , Jeanne is calling on behalf of , permission given to speak with .Patient has been ill since last night and threw up last night and has diarrhea. Today continues with diarrhea and has nausea and body aches with appetite. Currently has headache and rates pain 6/10 (moderate). TRIAGE REFERENCE: VOMITING - ADULT CN (c) 2010 STAT SYMPTOMS: None per guideline Duration: since last night Quality: other, liquid Amount: large. Symptoms of dehydration: dizziness when he stands, fatigue, lips an mouth are dry and is voiding less and current temp is 99 (oral) Other symptoms: nausea and chills.( Intermittently) PMH: Healthy. Current Outpatient Prescriptions Medication Sig ??? gabapentin (AKA NEURONTIN) 300 MG capsule one capsule three times daily as needed for anxiety; may increase to two capsules three times daily as needed ??? OMEPRAZOLE (PRILOSEC) 10MG ORAL CAPS Take one capsule by mouth every day. no longer takes neurontin MEDICATION ALLERGIES: Other and Penicillin and derivatives HOME TREATMENT: Discussed per guideline: NPO while vomiting or retching and 1-2 hrs after last emesis. Small sips of room temp clear liquids every 10-15 minutes for 8 hrs. Jell-o, gatorade, broth, popsicles. Flat pop (not diet). Avoid caffeinated drinks, milk products, orange juice. Avoid fried, spicy, or other strong foods for 1-2 days. If vomiting persists over 24 hrs call back. Do not use NSAIDS (examples are ASA, ibuprofen), however, acetaminophen is safe. TRIAGE REFERENCE: DIARRHEA - ADULT CN (c) 2010 STAT SYMPTOMS: None per guideline Onset: Gradual, Duration continued. Stools are: Watery, Loose, Color :light brown, Amount stools in past 24 hours: 6, Volume: large lastnight and smaller today , Odorous Recent history includes:no Diet: decreased, fluid intake: 2 16 oz glasses , urine output is decreased and has urinated only 2-3times and small amounts. Other symptoms are: aggravating factors: no, relieving factors: no, has tried rest and sipping on water. HOME TREATMENT: Discussed per guideline More than 5 liquid stools in 24 hrs: clear liquids with calories, no caffeine alcohol, or fruit juice Fewer than 5 liquid stools: no fruit juice, no dairy products, decrease roughage, bland, lowfat diet Decrease stress, increase rest PLAN: Discussed criteria of when to seek medical attention with spouse and patient. ER vs home treatment. At this time patient is able to keep fluids down and would like to home treat. If symptoms worsen or do not improve, caller will go to [facility] ER. Patient verbalizes understanding and agrees to plan. Lydia Cunningham, RN Stacy Benson - 04/27/2012 4:30 PM CDT Which care system or clinic is the patient normally seen at?[facility] What would caller have done if unable to contact the CareLine?Make Appointment Situation:Wondering what to do for treatment for stomach flu. Background:Patient has been vomiting, having diarrhea & body aches since 3am today. Plan:A nurse will call you back within the hour. If you have not received a callback, please call [phone] and state that you are waiting for a callback. documented in this encounter Plan of Treatment Not on filedocumented as of this encounter Visit Diagnoses Not on filedocumented in this encounter Care Teams Production Recorder Relationship Specialty Start Date End Date Rodolfo Ortega MD PCP - General Family Practice 10/22/10 10/02/14 [address] [place], [place] [id number] documented as of this encounter
--- OUTSIDE RECORDS SUMMARY | 2022-04-13 11:07 | XMS_ITS | Encounter Summary ---
:1980 Author Organization [employer] Address [address] [place], [place] [address] [place] [address] Care Team Providers Name Role Phone Rodolfo Ortega MD Primary Care Provider Reason for Visit Reason Onset Date Comments SHOT,FLU SHOT,FLU 05/31/2014 Encounter Details Date Type Department Care Team Description 05/31/2014 Immunization [facility] is Need for prophylactic [address] [facility]. vaccination and [place], [place] [address] inoculation against [phone] influenza (Prim cassie Dx) Social History Tobacco Use Types Packs/Day Years Used Date Smoking Tobacco: Former Smokeless Tobacco: Former Qu it: 07/16/2011 Alcohol Use Standard Drinks/Week Comments Yes 0 (1 standard drink = 0.6 oz pure alcoho l) Sex Assigned at Date Recorded Not on file documented as of this encounter Progress Notes Elsy Stout - 05/31/2014 7:16 PM CDT Flu shot given, see smartform. SUBJECTIVE Benjamin Orosco is a 33 yr old male here for a flu shot. [...] major neurological problem: no History of Guillian Winder within 6 weeks of receiving an influenza immunization: no History of bleeding problem: no (If YES to any of the above, consult MD) OBJECTIVE Temp (only if ill today): n/a ASSESSMENT Eligible for flu vaccine today: Yes PLAN Administer QIV Seasonal Injected per standing orders. Education: discussed possible side effects and provided health education materials. Elsy Stout documented in this encounter Plan of Treatment Not on filedocumented as of this encounter Visit Diagnoses Diagnosis Need for prophylactic vaccination and in oculation against influenza - Primary documented in this encounter Care Teams Warp Placer Relationship Specialty Start Date End Date Rodolfo Ortega MD PCP - General Family Practice 10/22/10 10/02/14 [address] [place] [address] documented as of this encounter
--- OUTSIDE RECORDS SUMMARY | 2022-04-13 11:07 | XMS_ITS | Encounter Summary ---
:1980 Author Organization [email or web address] Address [address] [place] [address] Care Team Providers Name Role Phone Rodolfo Ortega MD Primary Care Provider Reason for Visit Reason Onset Date Comments Follow Up Medication on wellbutrin PHQ-9 is 0, EVERETTE-[address] 11/24/2013 Encounter Details Date Type Department Care Team Description 11/24/2013 Office Visit [facility] Ramin Edge, Depressi on, recurrent (Primary Dx); Practice [facility] Anxiety Disorder NOS [address] [place], [place] [address] Social History Tobacco Use Types Packs/Day Years Used Date Smoking Tobacco: Former Smokeless Tobacco: Former Qu it: 07/16/2011 Alcohol Use Standard Drinks/Week Comments Yes 0 (1 standard drink = 0.6 oz pure alcoho l) Sex Assigned at Date Recorded Not on file documented as of this encounter Progress Notes Ramin Edge, [facility] - 11/24/2013 1:09 PM CDT Subjective Benjamin Orosco was called for a scheduled telephone visit regarding: Depression and anxiety. Patient was last seen on 08/17/2013 by myself. At that visit patient was taking 40 mg Celexa and continuing to experience altering feelings of depression throughout the day. Celexa was decreased to 20 mg daily and Wellbutrin 300 mg daily was added. Patient was also referred to therapy at that time. Patient reports a marked improvement in symptoms since adjusting medication, his PHQ-9 score has decreased from17 on 08/17/2013, to a score of 0 at this time. His GAD7 score has decreased from 2 on 08/17/2013, to 1 at this time. Patient reports he will continue to see behavioral health therapist Orion Loomis at [facility]. Is not interested in seeing a psychiatrist at this time. Would like to continue current medication. Patient again advised to watch for any side effects and informed of possibility of serotonin syndrome and QT prolongation with using Celexa and Wellbutrin. Assessment & Plan Continue current dose of medications, Wellbutrin refilled Continue to see therapist Followup with any concerns or worsening symptoms Followup immediately with any toxic harming self or others Time spent on the phone with the patient: 8 minutes. Ramin Edge PA-C documented in this encounter Plan of Treatment Not on filedocumented as of this encounter Visit Diagnoses Diagnosis Depression, recurrent ([facility]) - Primary Major depressive disorder, recurrent epi sode, unspecified Anxiety Disorder NOS Anxiety state, unspecified documented in this encounter Care Teams Animal Rehabilitator Relationship Specialty Start Date End Date Rodolfo Ortega MD PCP - General Family Practice 10/22/10 10/02/14 [address] [place], [place] [id number] documented as of this encounter
--- OUTSIDE RECORDS SUMMARY | 2022-04-13 11:07 | XMS_ITS | Encounter Summary ---
:1980 Author Organization [facility] Address [address] [place] [address] Care Team Providers Name Role Phone Rodolfo Ortega MD Primary Care Provider Reason for Visit Reason Comments Refill Encounter Details Date Type Department Care Team Description 09/11/2014 Refill [facility] Ramin Edeg PA-C Refill [address] [facility]. [place], [place] [address] Social History Tobacco Use Types Packs/Day Years Used Date Smoking Tobacco: Former Smokeless Tobacco: Former Qu it: 07/16/2011 Alcohol Use Standard Drinks/Week Comments Yes 0 (1 standard drink = 0.6 oz pure alcoho l) Sex Assigned at Date Recorded Not on file documented as of this encounter Nursing Notes Yi Rojas CMA - 09/12/2014 10:15 AM CST Called patient PHQ9 and GaD7 are completed Patient is making STV He is out of medication Please refill Yi Rojas CMA 09/12/2014, 10:19 AM VER AND STRIPER OPERATOR Ramin Edge PA-C - 09/12/2014 7:46 AM CST Please schedule STV this week for this patient. Complete PHQ-9 and EVERETTE-7 prior. Ramin Edge PA-C VER AND STRIPER OPERATOR Interface, Out Surescripts Prov Query - 09/11/2014 2:51 PM CST citalopram (AKA CELEXA) 40 MG tablet [Pharmacy Med Name: CITALOPRAM 40MG TABS] - WARNING: The requested strength (40 mg) is no longer active. As of 08/17/2013 the patient is taking 20 mg. - VIOLATION: Medication is not assigned to a protocol. - PROTOCOL: None Exists - LAST QUALIFYING VISIT IN FAMILY PRACTICE: 08/17/2013 - NEXT SCHEDULED VISIT: None - LAST REFILLED ON: 06/20/2013, QTY: 30, Refills: 11, Sig: take 1 tab by mouth daily. (changed but equivalent) Powered by [employer] Reference: [id number], 09/11/2014 2:54:24 PM GROOVER AND STRIPER OPERATOR, Pool: STEPHANIE REFILL NATALIE ([id number]) VER AND STRIPER OPERATOR documented in this encounter Plan of Treatment Not on filedocumented as of this encounter Visit Diagnoses Not on filedocumented in this encounter Care Teams Security Trainer Relationship Specialty Start Date End Date Rodolfo Ortega MD PCP - General Family Practice 10/22/10 10/02/14 [address] [place] [address] documented as of this encounter
--- OUTSIDE RECORDS SUMMARY | 2022-04-13 11:07 | XMS_ITS | Encounter Summary ---
:1980 Author Organization [facility] Address [address] [address] Care Team Providers Name Role Phone Rodolfo Ortega MD Primary Care Provider Encounter Details Date Type Department Care Team Description 10/07/2011 Orders Only [facility] Diarrhea [address] [place] [address] Social History Tobacco Use Types Packs/Day Years [...] Name Priority Date/Time Associated Diagnosis Comme nts OVA & PARASITE EXAM Routine 10/07/2011 11:55 AM Diarrhea R esults for this #2 [facility] procedure are i n the results section. PHONED RESULTS Routine 10/05/2011 4:27 PM Results for this [facility] procedure are i n the results section. documented in this encounter Results OVA & PARASITE EXAM #2 (10/07/2011 11:55 AM [facility]) Component Value Ref Test Analysis Performed At [facility] Range Method Time Signature Specimen Stool [facility] Description Special Unspecified [facility] Requests Specimen Information [facility] Number Not Given Results No Parasites [facility] Found Results Moderate [facility] PMNs Seen Specimen Anatomical Collection Method Collection Time Receive d Time (Source) Location / / Volume Laterality Stool specimen 10/07/2011 11:55 2 (specimen) AM [facility] 11:58 AM [facility] Edmond John MD LAB_1 Performing Organization Address City/State/ZIP Code Phon e Number [facility] [employer] [phone] [address] PHONED RESULTS (10/05/2011 4:27 PM [facility]) [facility] Method Time Signature Phoned Stool culture result [id number] given ??to Bebe Sanchez, at [address] on [address] Results [id number]. Results read back and confirmed. Specimen Anatomical Collection Method Collection Time Receive d Time (Source) Location / / Volume Laterality 10/05/2011 4:27 PM 2 4:37 [facility] PM [facility] Edmond John MD LAB_1 Performing Organization Address [facility] Code Phon e Number [facility] [phone] [phone] documented in this encounter Visit Diagnoses Diagnosis Diarrhea documented in this encounter Care Teams Retail Advertising Sales Manager Relationship Specialty Start Date End Date Rodolfo Ortega MD PCP - General Family Practice 10/22/10 2 [address] [place] [address] documented as of this encounter
--- OUTSIDE RECORDS SUMMARY | 2022-04-13 11:07 | XMS_ITS | Encounter Summary ---
:1980 Author Organization [facility] Address [address] [place] [address] Care Team Providers Name Role Phone Rodolfo Ortega MD Primary Care Provider Reason for Visit Reason Comments Muscle Aches/Pain VOMITING--ED DIARRHEA--ED Encounter Details Date Type Department Care Team Description 04/27/2012 - Emergency [facility] Magdy Singletary, Vomiting; 04/28/2012 [address] Diarrhea; [place] [address] [address] Nausea with vomiting; [phone] [place], [place] Headache [address] Social History Tobacco Use Types Packs/Day Years Used Date Smoking Tobacco: Former Smokeless Tobacco: Former Qu it: 07/16/2011 Alcohol Use Standard Drinks/Week Comments Yes 0 (1 standard drink = 0.6 oz pure alcoho l) Sex Assigned at Date Recorded Not on file documented as of this encounter Last Filed Vital Signs Vital Sign Reading Time Taken Comments Blood Pressure 119/78 04/28/2012 12:47 AM CDT Pulse 88 04/28/2012 12:47 AM CDT Temperature 37.6 ??C (99.6 ??F) 04/27/2012 7:35 PM CDT Respiratory Rate 16 04/28/2012 12:47 AM CDT Oxygen Saturation 97% 04/28/2012 12:47 AM CDT Inhaled Oxygen Concentration - - Weight - - Height - - Body Mass Index - - documented in this encounter Discharge Instructions Discharge InstructionsHai Jewell MD - 04/28/2012 1:04 AM CDT Please follow up with your primary care provider if your symptoms don't improve. . AttachmentsThe following attachments cannot be sent through Care Everywhere. GASTROENTERITIS: AFTER YOUR VISIT (SWEDISH)documented in this encounter Medications at Time of Discharge Medication Sig Dispensed Refills Start Date End Date gabapentin (AKA one capsule three 10 0 10/24/2009 NEURONTIN) 300 MG times daily as needed capsule for anxiety; may increase to two capsules three times daily as needed OMEPRAZOLE (PRILOSEC) Take one capsule by 0 09/2012/19/2015 10MG ORAL CAPS mouth every day. ondansetron (AKA ZOFRAN) Take 1 Tab by mouth 10 Tab 0 12/14/2012 8 MG tablet every 8 hours as needed for Nausea. documented as of this encounter ED Notes Mercy Gaona RN - 04/28/2012 1:10 AM CDT [facility] ED Nursing Discharge Note Vital Signs: BP: 119/78 mmHg Temp: 99.6 ??F (37.6 ??C)Temp src: Oral Pulse: 88 Resp: 16 SpO2: 97 % Pain Scale (0-10): 0 Admission Date/Time: 04/27/2012 11:04 PM Attending MD: Magdy Singletary Patient discharged: to Home. Patient accompanied by: relative. Transported by: Walked Valuables were taken home by patient: Yes Work/School Slip given: No Discharge instructions given and explained to patient: Yes Discharge prescriptions given to patients: Yes: New Prescriptions ONDANSETRON (AKA ZOFRAN) 8 MG TABLET Take 1 Tab by mouth every 8 hours as needed for Nausea. Patient verbalized understanding. Yes Patient level of pain on discharge: 0/10 Patients condition on discharge related to chief complaint and treatment in ED: Stable. pT w/o resp distress, A&Ox3, tolerates po solids. Ambulated out. ---End of Report--- Magdy Singletary MD - 04/27/2012 11:42 PM CDT [facility] Emergency Department Attending Supervision Note I performed the varghese elements of history and exam, and agree with resident's findings and plan of care as discussed with Dr. Hai Jewell. I have reviewed and agreed with the PMH, FH, SOC, ROS. Please see today's note by resident physician. Assessment: Vomiting Diarrhea Plan: ECG IV Fluid Antiemetics Analgesics Head Automatic Sawyer patient/family Re-evaluate patient Check response to treatment Planned Disposition: home Author: Magdy Singletary MD Mercy Gaona RN - 04/27/2012 11:15 PM CDT Pt states LOPEZ all over head, as well as muscle aches everywhere, no hx of migraines, fever at home 100F. Last po intake 3hrs ago. No OTC meds for pain. Pt speaks full clear sentences, no sx of resp distress. LS clear, pt w/ poor effort on deep breath. No new food or questionable food poisoning. MD Jewell at bedside. Annalisa Stringer RN - 04/27/2012 9:58 PM CDT PT in T1, VS monitor was placed on pt however he took it all off. Pt asking to be put into a room now, states, I don't want to hear any excuses, I'm sick of hearing it, I want a f___n' room now, just do it! Pt also states, I want water now, I can't even get a f____n glass of water. Obiee Obia Solution Architect explained to pt that he should not have oral intake just yet but did give pt some ice chips to wet mouth. Annalisa Stringer RN - 04/27/2012 8:11 PM CDT PT lying down in T1 per pt request. Mom at bedside, pt speaking in full sentences, skin warm and dry. Annalisa Stringer RN - 04/27/2012 7:41 PM CDT PT awakened last night at midnight with muscle cramps, then started to have diarrhea and vomiting, all this has intensified. Last episode of vomiting at 0400, last diarrhea stool mid afternoon. Pt now having acute muscle aches. Hai Jewell MD - 04/27/2012 12:00 AM CDT DATE OF SERVICE: 04/27/2012 CHIEF COMPLAINTS: Nausea. Vomiting. Diarrhea. HISTORY OF PRESENT ILLNESS: Patient is a 31-year-old male who states he has no past medical history who presents with nausea, vomiting and diarrhea. His symptoms began at 4:00 a.m. this morning, thus have been present for almost 20 hours now. Patient states that he has vomited about 1/2 dozen times and had diarrhea about 1/2 dozen times since onset of symptoms. There has been no blood in the stool orvomit and he describes this as normal diarrhea. He presents because he is unable to tolerate p.o. and has diffuse muscle aches and weakness. He has had only 1 recent trip which was to [place] where stayed in a hotel. He has not had any exposure to well water, drinking from streams or camping. He denies any other travel. He has not had antibiotics in the last 6 months. He denies abdominal pain. He states his muscle aches are in his shoulders, back and legs. He has also had a headache with this and some blurry vision. No one else at home is sick at this time other than his 6-month-old daughter who has a cough, but none of his symptoms. He denies chest pain and shortness of breath. PAST MEDICAL HISTORY: Alcohol dependence, in remission. Anxiety. PAST SURGICAL HISTORY: Patient denies a history of abdominal surgeries. ALLERGIES: PENICILLIN, WHICH CAUSES HIVES. PATIENT ALSO HAS NICKEL ALLERGY MEDICATIONS: Medications were reviewed in [facility] and include gabapentin and omeprazole, although the omeprazole prescription is old. 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 Has not had any exposure to any toxic temples. He does not smoke. PHYSICAL EXAM: Vitals: Temperature 99.6, pulse 119, blood pressure 99/60, respiratory rate 17, SpO2 is 90% on room air. General: Mildly overweight male who appears uncomfortable, but in no acute distress. HEENT: Head is atraumatic. Oropharynx with moist mucous membranes. There is no erythema or exudate. Neck: Without lymphadenopathy. Cardiac: Regular, tachycardic. Pulmonary: Lungs are clear to auscultation. Abdomen: Active bowel sounds, soft and nontender. No guarding. No rebound. Extremities: There is no pedal edema. Patient moves all extremities on command. Skin: There is no rash. Neurologic: Patient is alert and appropriate. Moves all extremities on command MDM: 31-year-old male with vomiting and diarrhea with was most likely etiology gastroenteritis. The patient has no history of recent antibiotic use so doubt C. diff. colitis. No exposure to well water,camping or drinking from streams so doubt Giardia. The patient was given a liter of normal saline, 8mg of IV ondansetron and 30 mg of ketorolac. The patient was reassessed after these interventions were initiated and the patient was found to be much more comfortable. He was no longer nauseous. He tried tolerating p.o. and did this without difficulty. He was able to eat crackers in the emergency department. Given he felt much better, the patient desired to go home. He was discharged with a prescription for p.o. ondansetron. He was encouraged to follow a bland diet and encouraged to take p.o. liquids as tolerated. The patient was instructed to return for persistent vomiting, inability to tolerate p.o. or any new symptoms he found concerning. The patient voiced understanding and was discharged in improved condition. Hai Jewell MD Staff: Magdy Singletary MD RTB:feli Dictated: 04/28/2012 14:15:59 Transcribed: 04/28/2012 14:37:37 Job: [id number] Doc: [id number] cc: documented in this encounter Miscellaneous Notes Media - [employer], PROVIDER - 04/27/2012 12:00 AM CDT documented in this encounter Plan of Treatment Not on filedocumented as of this encounter Visit Diagnoses Diagnosis Vomiting Vomiting alone Diarrhea Nausea with vomiting Headache(784.0) Headache documented in this encounter Administered Medications Inactive Administered Medications - up to 3 most recent administrations Medication Order MAR Action Action Date Dose Rate Site ketorolac (aka TORADOL) injection Given 04/27/2012 11:56 PM CDT 30 mg 30 mg 30 mg, Intravenous, ONCE, On Wed04/27/12 at 2329, For 1 dose NaCl 0.9 % infusion 1,000 mL Given 04/27/2012 11:50 PM CDT 1,000 mL 1000 mL/hr 1,000 mL, Intravenous, at 1,000 mL/hr, ONCE, On Wed04/27/12 at 2329, For 1 dose, Bolus ondansetron (aka ZOFRAN) injection 8 mg Given 04/27/2012 11:56 PM CDT 8 mg 8 mg, Intravenous, ONCE, On Wed04/27/12 at 2329, For 1 dose documented in this encounter Active and Recently Administered Medications Times are shown in CDT. Scheduled Medication Order 04/26/2012 04/27/2012 04/28/2012 ketorolac (aka TORADOL) injection 30 mg (COMPLETED) 2355 (Given - Provider: Mercy Gaona RN) 30 mg, IV, ONCE, 1 dose, Wed04/27/12 at 2329 NaCl 0.9 % infusion 1,000 mL (COMPLETED) 2350 (Given - Provider: Mercy Gaona RN) 0053 (Infusion Stopped - Provider: Mike Gaona RN) 1,000 mL, at 1,000 mL/hr, IV, ONCE, 1 dose, Wed04/27/12 at 2329 ondansetron (aka ZOFRAN) injection 8 mg (COMPLETED) 235 (Given - Provider: Mercy Gaona, NATALIE) 8 mg, IV, ONCE, 1 dose, Wed04/27/12 at 2329 documented in this encounter Care Teams Make Up Worker Relationship Specialty Start Date End Date Rodolfo Ortega MD PCP - General Family Practice 10/22/10 10/02/14 [address] [place] [address] documented as of this encounter
--- OUTSIDE RECORDS SUMMARY | 2022-04-13 11:07 | XMS_ITS | Encounter Summary ---
:1980 Author Organization [employer] Address [address] [place] [address] Care Team Providers Name Role Phone Rodolfo Ortega MD Primary Care Provider Reason for Visit Reason Comments Refill Encounter Details Date Type Department Care Team Description 2013 Refill [facility] ctRamin Montes, CESAR Refill [address] [facility]. [place], [place] [address] Social History Tobacco Use Types Packs/Day Years Used Date Smoking Tobacco: Former Smokeless Tobacco: Former Qu it: 07/16/2011 Alcohol Use Standard Drinks/Week Comments Yes 0 (1 standard drink = 0.6 oz pure alcoho l) Sex Assigned at Date Recorded Not on file documented as of this encounter Nursing Notes Yi Rojas CMA - 11/23/2013 8:09 AM CDT Called pharmacy Patient needs to make appointment Yi Rojas CMA 11/23/2013, 8:10 AM Called patient He will make a telephone visit, PHQ-9 Is 0 EVERETTE- 7 is 1 Yi Rojas CMA 11/23/2013, 8:16 AM Ramin Edge PA-C - 2013 4:42 PM CDT Need to reevaluate patient has been on Wellbutrin since August. Need PHQ9 and EVERETTE 7. Patient was previously seen by behavioral health therapy, does not appear that he has been recently. It does not appear that he has seen psychiatry, unless this is being done outside [facility]. Ramin Edge PA-C [facility] Primary Care Interface, Out LIN TV Query - 2013 3:53 PM CDT WELLBUTRIN XL 300 MG 24 hour release tablet [Pharmacy Med Name: WELLBUTRIN XL 300MG TB24] - VIOLATION: Medication is not assigned to a protocol. - PROTOCOL: None Exists - LAST PRIMARY CARE VISIT: 08/17/2013 - NEXT PRIMARY CARE VISIT: None - LAST REFILLED ON: 08/17/2013, QTY: 30, Refills: 2, Sig: take 1 tab by mouth daily. (changed but equivalent) Powered by [employer], Reference: [id number], 2013 3:54:58 PM CDT documented in this encounter Plan of Treatment Not on filedocumented as of this encounter Visit Diagnoses Diagnosis Major depressive disorder, recurrent epi sode, unspecified ([facility]) - Primary Major depressive disorder, recurrent epi sode, unspecified documented in this encounter Care Teams Etl Informatica Developer Relationship Specialty Start Date End Date Rodolfo Ortega MD PCP - General Family Practice 10/22/10 10/02/[address] [place] [id number] documented as of this encounter
--- OUTSIDE RECORDS SUMMARY | 2022-04-13 11:07 | XMS_ITS | Encounter Summary ---
:1980 Author Organization [facility] Address [address] [place] [address] Care Team Providers Name Role Phone Rodolfo Ortega MD Primary Care Provider Reason for Visit Reason Onset Date Comments Sore Throat 07/08/2013 Encounter Details Date Type Department Care Team Description 07/08/2013 Telephone Careline Unknown, Physician Sore Throat [address] [place], [place] [address] [place] [address] [phone] (Wo rk) Social History Tobacco Use Types Packs/Day Years Used Date Smoking Tobacco: Former Smokeless Tobacco: Former Qu it: 07/16/2011 Alcohol Use Standard Drinks/Week Comments Yes 0 (1 standard drink = 0.6 oz pure alcoho l) Sex Assigned at Date Recorded Not on file documented as of this encounter Nursing Notes Brianna Piña RN - 07/08/2013 5:06 PM CST TRIAGE REFERENCE: SORE THROAT - ADULT CNG (c) 2013 CONCERN: sore throat. STAT SYMPTOMS (Consider 911) none. ASSESSMENT: Onset was sudden Duration is started overnight. Dysphagia no Assessment: Had strep about 1 month ago Denies fever Denies exposure to anyone with strep Complicating history: none : PMH Patient Active Problem List Diagnosis ??? Persistent Disorder of Initiating or Maintaining Sleep ??? Alcohol Dependence, in short term Remission ??? Anxiety Disorder NOS . CURRENT MEDICATIONS: not verified. MEDICATION ALLERGIES: Other and Penicillin and derivatives . HOME TREATMENT: Discussed per guideline: Rest. Increased fluids (up to 3 quarts daily unless otherwise contraindicated) Salt water gargles: 1/4 tsp salt in 8 oz water q 2 hrs. Lozenges such as sucrets and cepastat Topical spray such as cepastat or chloraseptic. Acetaminophen or Ibuprofen as directed, if no contraindications TC PLAN: Home treatment. Call back as needed. Pt verbalizes understanding. Brianna Piña RN TANCE ADDICTION COORDINATOR Concepcion Gan - 07/08/2013 4:35 PM CST Which care system or clinic is the patient normally seen at? [facility]. [facility] would like me to ask all callers, If the CareLine was not available, what would you have done?Seek Urgent Care. Situation:Pt states that he has a severe sore throat and mild fatigue Background:Pt states that he had strep throat about one month ago. Plan:A nurse will return your call. If your symptoms change for the worse, please call us back [phone].. TANCE ADDICTION COORDINATOR documented in this encounter Plan of Treatment Not on filedocumented as of this encounter Visit Diagnoses Not on filedocumented in this encounter Care Teams Software Quality Manager Relationship Specialty Start Date End Date Rodolfo Ortega MD PCP - General Family Practice 10/22/10 10/02/14 [address] [place] [address] documented as of this encounter
--- OUTSIDE RECORDS SUMMARY | 2022-04-13 11:07 | XMS_ITS | Encounter Summary ---
:1980 Author Organization [employer] Address [address] [place] [address] Care Team Providers Name Role Phone Rodolfo Ortega MD Primary Care Provider Reason for Visit Reason Comments SHOT,FLU Encounter Details Date Type Department Care Team Description 05/19/2013 Immunization [facility] Need for p rophylactic Department vaccination and [address] inoculation against [place], [place] [address] influenza (Primary Dx) [phone] Social History Tobacco Use Types Packs/Day Years Used Date Smoking Tobacco: Former Smokeless Tobacco: Former Qu it: 07/16/2011 Alcohol Use Standard Drinks/Week Comments Yes 0 (1 standard drink = 0.6 oz pure alcoho l) Sex Assigned at Date Recorded Not on file documented as of this encounter Progress Notes Yi Rojas CMA - 05/19/2013 4:22 PM CDT Vaccine given per standing order Yi Rojas CMA documented in this encounter Plan of Treatment Not on filedocumented as of this encounter Visit Diagnoses Diagnosis Need for prophylactic vaccination and in oculation against influenza - Primary documented in this encounter Care Teams Certified Performance Technologist Relationship Specialty Start Date End Date Rodolfo Ortega MD PCP - General Family Practice 10/22/10 10/02/[address] [place] [id number] documented as of this encounter
--- OUTSIDE RECORDS SUMMARY | 2022-04-13 11:07 | XMS_ITS | Encounter Summary ---
:1980 Author Organization [employer] Address [address] [place] [address] Care Team Providers Name Role Phone Rodolfo Ortega MD Primary Care Provider Reason for Visit Reason Onset Date Comments Follow Up Medication follow up celexa, P HQ-9 and EVERETTE -7 completed Stv 09/13/2014 Encounter Details Date Type Department Care Team Description 09/13/2014 [facility] Ramin Edge, Depressi on with Practice CESAR anxiety (Primary Dx) [address] [place], [place] [address] Social History Tobacco Use Types Packs/Day Years Used Date Smoking Tobacco: Former Smokeless Tobacco: Former Qu it: 07/16/2011 Alcohol Use Standard Drinks/Week Comments Yes 0 (1 standard drink = 0.6 oz pure alcoho l) Sex Assigned at Date Recorded Not on file documented as of this encounter Progress Notes Ramin Edge PA-C - 09/13/2014 11:10 AM CST Subjective Benjamin Orsoco was called for a scheduled telephone visit regarding: Regarding follow-up for depression symptoms. Patient is taking both Celexa 20 mg daily, and Wellbutrin 300 mg daily. Patient has seen behavioral health therapy intermittently. Feels that symptoms are adequately controlled at this time with medications. Uses coping techniques that he has learned in behavioral health. Denies any thoughts of harming self or others. Recent EVERETTE-7 score of 0, recent PHQ-9 score of 1. Discussed possible serotonin syndrome with combination of Celexa and Wellbutrin, patient understands and denies experiencing any of these symptoms. Advised to watch for this. Follow-up immediately if symptoms occur. Patient does not have any concerns at this time. Assessment & Plan ICD-9-CM 1. Depression with anxiety 300.4 citalopram (AKA CELEXA) 20 MG tablet Continue current medications, Celexa 20 mg daily and Wellbutrin 300 mg daily Symptoms of serotonin syndrome reviewed Contact clinic with any concerns Follow-up immediately with any thoughts of harming self or others Time spent on the phone with the patient: 8 minutes. Ramin Edge PA-C P SHED SUPERVISOR documented in this encounter Plan of Treatment Not on filedocumented as of this encounter Visit Diagnoses Diagnosis Depression with anxiety (HRC) - Primary Dysthymic disorder documented in this encounter Care Teams Instructional Technology Teacher Relationship Specialty Start Date End Date Rodolfo Ortega MD PCP - General Family Practice 10/22/10 10/02/14 [address] [place], [place] [id number] documented as of this encounter
--- OUTSIDE RECORDS SUMMARY | 2022-04-13 11:07 | XMS_ITS | Encounter Summary ---
:1980 Author Organization [facility] Address [address], [place] [address] Care Team Providers Name Role Phone Rodolfo Ortega MD Primary Care Provider Encounter Details Date Type Department Care Team Description 10/05/2011 Orders Only [facility] Diarrhea; [address] [facility] Fever [place], [place] [id number] Social History Tobacco Use Types Packs/Day Years [...] Comme nts OVA & PARASITE EXAM Routine 10/05/2011 4:27 PM Diarrhea Re sults for this #1 FALSEWORK BUILDER procedure are i n the results section. GIARDIA SPECIFIC AG Routine 10/05/2011 4:27 PM Diarrhea Re sults for this (1 COLLE FALSEWORK BUILDER procedure are i n the results section. STOOL CULTURE Routine 10/05/2011 4:27 PM Diarrhea Results for this FALSEWORK BUILDER Fever procedure are i n the results section. documented in this encounter Results OVA & PARASITE EXAM #1 (10/05/2011 4:27 PM FALSEWORK BUILDER) Component Value Ref Test Analysis Performed At [facility] Range Method Time Signature Specimen Stool [facility] Description Special Unspecified [facility] Requests Specimen 1 of 3 [facility] Number Collections Results No Parasites [facility] Found Results Many PMNs Seen [facility] Specimen Anatomical Collection Method Collection Time Receive d Time (Source) Location / / Volume Laterality Stool specimen 10/05/2011 4:27 PM 012 4:37 (specimen) FALSEWORK BUILDER PM FALSEWORK BUILDER Edmond John MD LAB_1 Performing Organization Address [facility] Phon e Number [facility] [employer] [phone] [facility] [address] [place] [phone] (ABNORMAL) STOOL CULTURE (10/05/2011 4:27 PM FALSEWORK BUILDER) Component Value Ref Test Analysis Performed At [facility] Range Method Time Signature Specimen Stool [facility] Description Special Unspecified [facility] Requests Enzyme Negative for [facility] Immunoassay Shiga Toxin 1 and Shiga Toxin 2 Culture Campylobacter [facility] jejuni group Isolated Culture [facility] has reported this positive result to the [facility] Department of [facility]. Physicians are also required to repor t cases of this infection to [facility]. Culture No Salmonella, [facility] Shigella or E. coli 0157:H7 Isolated Culture This is considered a significant result. Clinical correlat ion is [facility] indicated. (A) Report Status Final 10/07/2011 [facility] Specimen Anatomical Collection Method Collection Time Receive d Time (Source) Location / / Volume Laterality Stool specimen 10/05/2011 4:27 PM 012 4:37 (specimen) FALSEWORK BUILDER PM FALSEWORK BUILDER Edmond John MD LAB_1 Performing Organization Address [facility] Phon e Number [facility] [employer] [phone] [facility] [address] [place] [phone] GIARDIA SPECIFIC AG (1 COLLEC (10/05/2011 4:27 PM FALSEWORK BUILDER) [facility] Method Time Signature Giardia Negative NEG [facility] Specific Ag. Specimen Anatomical Collection Method Collection Time Receive d Time (Source) Location / / Volume Laterality 10/05/2011 4:27 PM 2 4:37 FALSEWORK BUILDER PM FALSEWORK BUILDER Edmond John MD LAB_1 Performing Organization Address [facility] Phon e Number [facility] [employer] [phone] [facility] [address] [place] [phone] documented in this encounter Visit Diagnoses Diagnosis Diarrhea Fever Fever, unspecified documented in this encounter Care Teams Mental Retardation Aide Relationship Specialty Start Date End Date Rodolfo Ortega MD PCP - General Family Practice 10/22/[address] [place] [address] documented as of this encounter
--- OUTSIDE RECORDS SUMMARY | 2022-04-13 11:07 | XMS_ITS | Encounter Summary ---
:1980 Author Organization [facility] Address [address] [place] [address] Care Team Providers Name Role Phone Rodolfo Ortega MD Primary Care Provider Reason for Visit Reason Onset Date Comments Sore Throat 06/09/2013 Encounter Details Date Type Department Care Team Description 06/09/2013 Telephone Careline Unknown, Physician Sore Throat [address] [place], [place] [address] [address] [place] [address] [phone] (Wo rk) Social History Tobacco Use Types Packs/Day Years Used Date Smoking Tobacco: Former Smokeless Tobacco: Former Qu it: 07/16/2011 Alcohol Use Standard Drinks/Week Comments Yes 0 (1 standard drink = 0.6 oz pure alcoho l) Sex Assigned at Date Recorded Not on file documented as of this encounter Nursing Notes Bebe Mcneill RN - 06/09/2013 3:18 AM CDT TRIAGE REFERENCE: FEVER - ADULT CNG (c) 2013 STAT SYMPTOMS: None per guideline ASSESSMENT: Temperature/Route: between 100.5 and 101.0, Onset: states that he went to bed at around 11 PM, states at that time, didn't feel very good, headache/body aches, chills, but states it wasn't until now when pt woke and checked temperature and noted fever. Other symptoms: sore throat and muscle aches. Exposure to other persons with communicable illnesses:not that pt is aware of, states he has 19 month old daughter in daycare. Intake & output: normal before bed last night. Overall appearance and present activity level: pt states he wasn't sleeping well due to symptoms, states that otherwise very decreased activity now.. Complicating factors: none. TRIAGE REFERENCE: SORE THROAT - ADULT CNG (c) 2013 STAT SYMPTOMS (Consider 911) None per guideline. ASSESSMENT: Onset was: pt noted somewhat before bed, states it's very sore now. Dysphagia No Respirations are normal Complicating history: None PMH: Patient Active Problem List Diagnosis ??? Persistent Disorder of Initiating or Maintaining Sleep ??? Alcohol Dependence, in short term Remission ??? Anxiety Disorder NOS CURRENT MEDICATIONS: Current Outpatient Prescriptions Medication Sig ??? citalopram (AKA CELEXA) 20 MG tablet Take 1 Tab by mouth daily. ??? OMEPRAZOLE (PRILOSEC) 10MG ORAL CAPS Take one capsule by mouth every day. MEDICATION ALLERGIES: Allergies Allergen Reactions ??? Other Rash Nickel allergy ??? Penicillin And Derivatives HOME TREATMENT: Discussed per guideline Treat fevers higher than 102 or if uncomfortable ( i.e. body aches, headache) Remove excess clothing Force fluids Acetaminophen as directed, ASA or ibuprofen if not contraindicated by symptoms Cool cloth to forehead Call back if temperature is over 103 or fever over 3 days HOME TREATMENT for sore throat: Discussed per guideline: Rest. Increased fluids (up to 3 quarts daily unless otherwise contraindicated) Salt water gargles: 1/4 tsp salt in 8 oz water q 2 hrs. Lozenges such as sucrets and cepastat Acetaminophen or Ibuprofen as directed, if no contraindications Humidity TC PLAN: Home treat & monitor symptoms, call back if symptoms change or worsen or if pt has furtherconcerns or questions. Appointment center to schedule appointment in clinic-pt advised to call to schedule clinic appt for further evaluation tomorrow am after 7. Pt verbalizes understanding of information and recommendations given and agrees to this plan of care. Denies further needs or questions for the careline at this time. Bebe Mcneill RN Favian Calvo - 06/09/2013 3:13 AM CDT Which care system or clinic is the patient normally seen at? [facility]. [facility] would like me to ask all callers, If the CareLine was not available, what would you have done?Self Care. Situation:pt has a sore throat, neck sifuentes and body aches. Pt also has a fever for 4 hours. Plan:A nurse will return your call. If your symptoms change for the worse, please call us back [phone]. documented in this encounter Plan of Treatment Not on filedocumented as of this encounter Visit Diagnoses Not on filedocumented in this encounter Care Teams Pipe And Tank Fabricator Relationship Specialty Start Date End Date Rodolfo Ortega MD PCP - General Family Practice 10/22/10 10/02/14 [address] [place] [address] documented as of this encounter
--- OUTSIDE RECORDS SUMMARY | 2022-04-13 11:07 | XMS_ITS | Encounter Summary ---
:1980 Author Organization [employer] Address [address] [place] [address] Care Team Providers Name Role Phone Rodolfo Ortega MD Primary Care Provider Reason for Visit Reason Onset Date Comments MEDICATION CHECK 06/20/2013 Encounter Details Date Type Department Care Team Description 06/20/2013 Telephone [facility] Ramin Lyons, PATariqC MEDICATION CHECK [address] [place], [place] [address] Social History Tobacco Use Types Packs/Day Years Used Date Smoking Tobacco: Former Smokeless Tobacco: Former Qu it: 07/16/2011 Alcohol Use Standard Drinks/Week Comments Yes 0 (1 standard drink = 0.6 oz pure alcoho l) Sex Assigned at Date Recorded Not on file documented as of this encounter Nursing Notes Yi Rojas CMA - 06/20/2013 8:23 AM CST Patient sent a e-mail regarding his medications, would like a change in his medications PHQ-9 is 10 and EVERETTE 7 is 8 Patient is having increasing mood swings and depression. Would like a change in medications Please advise Yi Rojas CMA MAIL EDITOR documented in this encounter Plan of Treatment Not on filedocumented as of this encounter Visit Diagnoses Not on filedocumented in this encounter Care Teams Grapple Yarder Operator Relationship Specialty Start Date End Date Rodolfo Ortega MD PCP - General Family [facility] 10/22/10 10/02/14 [address] [place] [address] documented as of this encounter
--- OUTSIDE RECORDS SUMMARY | 2022-04-13 11:07 | XMS_ITS | Encounter Summary ---
:1980 Author Organization [employer] Address [address] [place] [address] Care Team Providers Name Role Phone Rodolfo Ortega MD Primary Care Provider Reason for Visit Reason Comments IMMUNIZATIONS Encounter Details Date Type Department Care Team Description 09/08/2011 Nursing Visit [facility] Vaccin fo r DTP (Primary Department Dx) [address] [place], [place] [address] Social History Tobacco Use Types Packs/Day Years Used Date Smoking Tobacco: Every Day Smokeless Tobacco: Never Comments: 1 pk per wk Alcohol Use Standard Drinks/Week Comments Not Asked 0 (1 standard drink = 0.6 oz pure alcoho l) Sex Assigned at Date Recorded Not on file documented as of this encounter Progress Notes Miya Gaming LPN - 09/08/2011 9:04 AM CST BENJAMIN OROSCO here for injection(s). ordered per standing order . See orders. Contraindications and side effects discussed with patient patient verbalized understanding of risks, possible side effects, and benefits of the injection and gave permission to administer the stated immunization(s). No precautions or contraindications noted. Tolerated injection well. See immunization/injection report for administration documentation. Miya Gaming LPN E DIRECTOR documented in this encounter Plan of Treatment Not on filedocumented as of this encounter Visit Diagnoses Diagnosis Need for prophylactic vaccination with c ombined eqxxlqcoav-rhoawxe-klcgwlzar (DTP) vaccine - Primary documented in this encounter Care Teams Superintendent Tests Relationship Specialty Start Date End Date Rodolfo Ortega MD PCP - General Family Practice 10/22/10 2 [address] [place] [address] documented as of this encounter
--- OUTSIDE RECORDS SUMMARY | 2022-04-13 11:07 | XMS_ITS | Encounter Summary ---
:1980 Author Organization [employer] Address [address], [place] [address] Care Team Providers Name Role Phone Rodolfo Ortega MD Primary Care Provider Reason for Referral Consult/Transfer Care (Routine) - Closed Specialty Diagnoses / Procedures Referred By Contact Refer red To Contact Diagnoses Depression, recurrent (HRC) Ramin Edge, CESAR [address] [place] [address] Referral ID Status Reason Start Date Expiration Date Visits Requ ested Visits Authorized [id number] Closed 08/17/2013 1 1 Scheduling Instructions Your provider has recommended an appoint ment with Behavioral Health. You may call [phone] to schedule your appointmen t. If you prefer, a bleaching supervisor will contact you within the next 3 business days to a ssist you in setting up this appointment. Please note that in order to maintain ac cess for all patients; Behavioral Health does have a late cancellation policy. In orde r to avoid being restricted from scheduling future appointments in Behavioral Health you will need to cancel at least 48 hours in advance. N HOIST OPERATOR Reason for Visit Reason Comments MEDICATION CHECK Encounter Details Date Type Department Care Team Description 08/17/2013 Office Visit [facility] Depressi on, recurrent (Primary Dx); Practice [facility] Depression with anxiety [address] [place], [place] [address] Social History Tobacco Use Types Packs/Day Years Used Date Smoking Tobacco: Former Smokeless Tobacco: Former Qu it: 07/16/2011 Alcohol Use Standard Drinks/Week Comments Yes 0 (1 standard drink = 0.6 oz pure alcoho l) Sex Assigned at Date Recorded Not on file documented as of this encounter Last Filed Vital Signs Vital Sign Reading Time Taken Comments Blood Pressure 128/71 08/17/2013 8:50 AM CHAIN HOIST OPERATOR Pulse 75 08/17/2013 8:50 AM CHAIN HOIST OPERATOR Temperature - - Respiratory Rate 18 08/17/2013 8:50 AM CHAIN HOIST OPERATOR Oxygen Saturation - - Inhaled Oxygen Concentration - - Weight 104.3 kg (230 lb) 08/17/2013 8:50 AM CHAIN HOIST OPERATOR Height - - Body Mass Index 33 12/14/2012 9:02 AM CDT documented in this encounter Patient Instructions Patient InstructionsRamin Edge PA-C - 08/17/2013 9:10 AM CST Decrease Celexa to 20mg Start Wellbutrin XL 150mg x4 days, then increase to 300mg Schedule appointment with psychiatry Follow up immediately with any concerning or worsening symptoms Ramin Edge PA-C [facility] N HOIST OPERATOR documented in this encounter Progress Notes Ramin Edge PA-C - 08/17/2013 12:05 PM CST CC: Chief Complaint Patient presents with ??? MEDICATION, CHECK Subjective: Benjamin Orosco is a 32 yr old male presenting for followup of depression and anxiety. Patientwas started on Celexa in December of 2012, had good response at 20 mg dose of Celexa. Last fall patient began experiencing mood swings, and altering feelings of depression throughout the day. Feels his depression would go up and down throughout the day. Denies any manic episodes. Celexa was increased to 40mg daily at that time and patient was referred to behavioral health therapy. Patient has met with behavioral health therapist. He feels his anxiety is adequately controlled but has persistent feeling of depression and little interest or pleasure in doing things he previously enjoyed. He does not feel that increased dose of Celexa has made any additional benefit compared to 20 mg dose. Also has significant lack of energy. At this point we will refer to psychiatry. We will also decrease dose of Celexaback to 20 mg, and add Wellbutrin XL 300 mg daily. Patient advised to watch for increased side effects, and informed of possibility of serotonin syndrome and QT prolongation. Patient Active Problem List Diagnosis ??? Persistent Disorder of Initiating or Maintaining Sleep ??? Alcohol Dependence, in short term Remission ??? Anxiety Disorder NOS ??? Depression, recurrent Allergies Allergen Reactions ??? Other Rash Nickel allergy ??? Penicillin And Derivatives Outpatient Prescriptions Prior to Visit Medication Sig Dispense Refill ??? OMEPRAZOLE (PRILOSEC) 10MG ORAL CAPS Take one capsule by mouth every day. ??? citalopram (AKA CELEXA) 40 MG tablet Take 1 Tab by mouth daily. 30 Tab 11 No facility-administered medications prior to visit. Objective: BP 128/71 Pulse 75 Resp 18 Wt 230 lb (104.327 kg) BMI 33 kg/m2 General: Calm, in NAD. Skin: [facility] warm and dry. Mental Status Exam: Appearance: alert Grooming: normal Demeanor: engaged and cooperative Behavior: normal Speech: normal Thought Process: intact Thought Content: no abnormalities noted Mood: neutral Affect: well-modulated, congruent and neutral Cognition: orientation: intact attention: intact recent memory: intact Insight: intact Judgment: intact Assessment/Plan: Benjamin was seen today for medication, check. Diagnoses and associated orders for this visit: Depression, recurrent - buPROPion (AKA WELLBUTRIN XL) 150 MG 24 hour release tablet; Take 1 Tab by mouth daily for 4 days. - buPROPion (AKA WELLBUTRIN XL) 300 MG 24 hour release tablet; Take 1 Tab by mouth daily. - BEHAVIORAL HEALTH - citalopram (AKA CELEXA) 20 MG tablet; Take 1 Tab by mouth daily. Depression with anxiety - citalopram (AKA CELEXA) 20 MG tablet; Take 1 Tab by mouth daily. Decrease Celexa to 20mg Start Wellbutrin XL 150mg x4 days, then increase to 300mg Schedule appointment with psychiatry Follow up immediately with any concerning or worsening symptoms Ramin Edge PA-C [facility] This note was dictated using a voice recognition software. Therefore, unintended word substitutionsmay be present. N HOIST OPERATOR documented in this encounter Plan of Treatment Scheduled Referrals Name Type Priority Associated Diagnoses Order [facility] BE[facility]AL [facility] Referral Routine Depression, recurrent O rdered: 08/17/2013 documented as of this encounter Visit Diagnoses Diagnosis Depression, recurrent (HRC) - Primary Major depressive disorder, recurrent epi sode, unspecified Depression with anxiety (HRC) Dysthymic disorder documented in this encounter Care Teams Photographic Hand Developer Relationship Specialty Start Date End Date Rodolfo Ortega MD PCP - General Family Practice 10/22/10 10/02/14 [address] [place], [place] [id number] documented as of this encounter
--- OUTSIDE RECORDS SUMMARY | 2022-04-13 11:07 | XMS_ITS | Encounter Summary ---
:1980 Author Organization [facility] Address [address] [place] [address] Care Team Providers Name Role Phone Rodolfo Ortega MD Primary Care Provider Reason for Visit Reason Onset Date Comments Medication Questions 12/17/2012 Encounter Details Date Type Department Care Team Description 12/17/2012 Telephone Careline Rodolfo Ortega MD Medication Questions [address] [place], [place] [address] [place], [place] [phone] Social History Tobacco Use Types Packs/Day Years Used Date Smoking Tobacco: Former Smokeless Tobacco: Former Qu it: 07/16/2011 Alcohol Use Standard Drinks/Week Comments Yes 0 (1 standard drink = 0.6 oz pure alcoho l) Sex Assigned at Date Recorded Not on file documented as of this encounter Nursing Notes Deidre Guajardo - 12/17/2012 12:36 PM CDT TRIAGE REFERENCE: ALLERGIC REACTION - ADULT CNG (c) 2011 STAT SYMPTOMS None per guideline Onset of symptoms: Sudden, duration: 2-3 days. Location: Fatigue, dizziness, tingling to upper and lower extremities. Dyspnea: No, Dysphagia: No. Rash: none. Itching: No. Other systemic symptoms: none. History of allergies: No. Exposure to possible allergens: medications. Has been drinking 1-2 beers nightly. PMH Patient Active Problem List Diagnosis ??? Persistent Disorder of Initiating or Maintaining Sleep ??? Alcohol Dependence, in short term Remission ??? Anxiety Disorder NOS CURRENT MEDICATIONS Current Outpatient Prescriptions Medication Sig ??? citalopram (AKA CELEXA) 20 MG tablet Take 1 Tab by mouth daily. ??? OMEPRAZOLE (PRILOSEC) 10MG ORAL CAPS Take one capsule by mouth every day. No current facility-administered medications for this visit. MEDICATION ALLERGIES Other and Penicillin and derivatives 12:42 PM chart writer called and spoke with oncall Dr. Tiwari to update on patient's s/sx and has been drinking 1-[address] Mays, patient must consider stopping the alcohol usage of any kind as the alcohol use may surely be contributing to his s/sx currently. Continue the Citalopram as prescribed, stop alcohol use. Citalopram takes several weeks to begin to work in treating depression and anxiety. Patient informed and verbalized understanding. HOME TREATMENT See above note PLAN Home treat & monitor symptoms, call back if they increase or if concerns Advised to follow home tx guidelines and monitor symptoms. Reviewed home treatments described above as well as worsening/stat symptoms to watch for - and advised ER/call 911 if those symptoms occur. Encouraged to call back anytime with any questions, concerns, changes in symptoms. Pt/caller verbalized understanding of recommendations, denies further questions and is agreeable to plan. Ruthy Jiang RN Stacy Benson - 12/17/2012 11:54 AM CDT Which care system or clinic is the patient normally seen at?[facility] What would caller have done if unable to contact the CareLine?Clinic Follow-Up (i.e. lab, medicationquestion, med refill) Situation:Medication questions. Background:Patient experiencing dizziness, fatigue, muscle weakness. Said he recently started a new medication, wondering if it could be related. Plan:A nurse will return your call. If your symptoms change for the worse, please call us back [phone].. documented in this encounter Plan of Treatment Not on filedocumented as of this encounter Visit Diagnoses Not on filedocumented in this encounter Care Teams Quality Assurance Representative Relationship Specialty Start Date End Date Rodolfo Ortega MD PCP - General Family Practice 10/22/10 [address] [place] [address] documented as of this encounter
--- OUTSIDE RECORDS SUMMARY | 2022-04-13 11:07 | XMS_ITS | Encounter Summary ---
:1980 Author Organization [facility] Address [address] [place] [address] Care Team Providers Name Role Phone Rodolfo Ortega MD Primary Care Provider Reason for Visit Reason Onset Date Comments Medication Questions 08/17/2013 Encounter Details Date Type Department Care Team Description 08/17/2013 Telephone [facility] Ramin Edge, Medicati on Questions Practice PA-C [address] [place], [place] [address] Social History Tobacco Use Types Packs/Day Years Used Date Smoking Tobacco: Former Smokeless Tobacco: Former Qu it: 07/16/2011 Alcohol Use Standard Drinks/Week Comments Yes 0 (1 standard drink = 0.6 oz pure alcoho l) Sex Assigned at Date Recorded Not on file documented as of this encounter Nursing Notes Yi Drake, NATALIE - 08/17/2013 10:49 AM CST Spoke with Isaiah in Pharmacy. Per Isaiah, this is an Erroneous Entry. Encounter closed. Yi Drake RN 08/17/2013, 10:49 AM Ramin Cid PA-C - 08/17/2013 10:23 AM CST I do not see records of this patient taking tramadol. Was this sent from a different clinic? Ramin Edge Yi Humphries, NATALIE - 08/17/2013 9:59 AM CST Routing to Provider to see if any adjustments in prescriptions need to be made before contacting patient. Yi Drake RN 08/17/2013, 10:00 AM CONTENT DIRECTOR Levi Rodríguez - 08/17/2013 9:30 AM CST rx's sent for patient for both citalopram and tramadol. When take together there is an increased risk of seratonin Syndrome. Please advise. Levi Rodríguez 08/17/2013, 9:31 AM CONTENT DIRECTOR documented in this encounter Plan of Treatment Not on filedocumented as of this encounter Visit Diagnoses Not on filedocumented in this encounter Care Teams Boiler Shop Mechanic Relationship Specialty Start Date End Date Rodolfo Ortega MD PCP - General Family Practice 10/22/10 10/02/14 [address] [place], [place] [id number] documented as of this encounter
--- OUTSIDE RECORDS SUMMARY | 2022-04-13 11:07 | XMS_ITS | Encounter Summary ---
:1980 Author Organization [facility] Address [address] [place] [address] Care Team Providers Name Role Phone Rodolfo Ortega MD Primary Care Provider Reason for Visit Reason Onset Date Comments DIARRHEA 10/04/2011 FEVER 10/04/2011 Encounter Details Date Type Department Care Team Description 10/04/2011 Telephone Careline Unknown, Physician DIARRHEA; FEVER [address] [place], [place] [address] [place] [address] [phone] (Wo rk) Social History Tobacco Use Types Packs/Day Years Used Date Smoking Tobacco: Every Day Smokeless Tobacco: Never Comments: 1 pk per wk Alcohol Use Standard Drinks/Week Comments Not Asked 0 (1 standard drink = 0.6 oz pure alcoho l) Sex Assigned at Date Recorded Not on file documented as of this encounter Nursing Notes Ilene Hernandez RN - 10/04/2011 8:37 PM CST Pt's spouse states pt is having diarrhea since 2pm (has had 10-15 stools today, now all water and mainly clear and small amounts) Pt answering questions relayed from spouse Temp at 7:30pm was 103.5 (oral ) - hasn't done any home tx for fever yet Other sx's: body aches today and the diarrhea Is urinating good amounts- states pt is taking in lots of water to replace diarrhea TRIAGE REFERENCE: FEVER - ADULT CNG (c) 2011 STAT SYMPTOMS: None per guideline ASSESSMENT: Other symptoms: muscle aches (back and legs) Exposure to other persons with communicable illnesses:No Intake & output: ate: cereal with milk, water, cheesecake and coffee - sx's began after eating this (no others who ate got ill). Output: urinating Q few hours, good amount. TRIAGE REFERENCE: DIARRHEA - ADULT CNG (c) 2010 STAT SYMPTOMS: None per guideline Onset: Intermittently,. GI symptoms are: abdominal cramping r/t diarrhea. Recent history includes: none Other symptoms are: fever: as per above. PMH: No past medical history on file. Patient Active Problem List Diagnoses Code ??? Persistent Disorder of Initiating or Maintaining Sleep 307.42 ??? Alcohol Dependence, in short term Remission 303.93B ??? Anxiety Disorder NOS 300.00G CURRENT MEDICATIONS: prilosec MEDICATION ALLERGIES: Yes: Allergies Allergen Reactions ??? Penicillin And Derivatives ??? Other Rash Nickel allergy Per guideline, see within 12 hours for: Temp greater than 103 degrees with other symptoms HOME TREATMENT: (fever): Discussed per guideline Treat fevers higher than 102 or if uncomfortable ( i.e. body aches, headache) Remove excess clothing Force fluids Acetaminophen as directed, ASA or ibuprofen if not contraindicated by symptoms Frail/elderly patients should avoid ibuprofen. If ibuprofen is advised by the provider, the dose for frail/elderly patient should be 50% less than the usual adult dose Cool cloth to forehead Call back if temperature is over 103 or fever over 3 days HOME TREATMENT: Discussed per guideline More than 5 liquid stools in 24 hrs: clear liquids with calories, no caffeine alcohol, or fruit juice Fewer than 5 liquid stools: no fruit juice, no dairy products, decrease roughage, bland, lowfat diet Decrease stress, increase rest PLAN: Home treat & monitor symptoms, call back if they increase or if concerns or new sx's develop Follow up clinic and/or Primary Care Provider and is transferred to arrange appt for tomorrow morning (requesting [facility] clinic) Caller is advised of stat sx's to be aware of (per guideline) and requiring immediate tx and states understanding. caller agree's with plan and denies any further questions at this time. Ilene Hernandez RN Lilian Hernandez - 10/04/2011 7:44 PM CST Missed previous call and would like another call back. Lilian Calderón INE ASSEMBLER Brianna Piña, RN - 10/04/2011 7:39 PM CST This is a Careline Registered Nurse returning your call at 7:39. I am sorry we missed you. If you would still like to speak to one of the nurses, please call back to the CareLine at [phone] and tell the lei maker you are returning a missed call. Brianna Piña RN INE ASSEMBLER Yisel Diez - 10/04/2011 7:09 PM CST Which care system or clinic is the patient normally seen at?OTHER What would caller have done if unable to contact the CareLine?Make Appointment Situation: Pt has had diarrhea all day today. Plan:A nurse will call you back within the hour. If you have not received a callback, please call [phone] and state that you are waiting for a callback. INE ASSEMBLER documented in this encounter Plan of Treatment Not on filedocumented as of this encounter Visit Diagnoses Not on filedocumented in this encounter Care Teams Director Of Residence Life Relationship Specialty Start Date End Date Rodolfo Ortega MD PCP - General Family Practice 10/22/10 10/02/14 [address] [place] [place] [id number] documented as of this encounter
--- OUTSIDE RECORDS SUMMARY | 2022-04-13 11:08 | XMS_ITS | Encounter Summary ---
:1980 Author Organization [facility] Address [address] [address] Care Team Providers Name Role Phone Dwaine Holden MD Primary Care Provider Unavailable Encounter Details Date Type Department Care Team Description 08/06/1996 Office Visit [facility] Zack Puckett ACUTE LARYNG OPHARYNGITIS Richard Romero MD [address] [facility]. [address] [place], [place] [address] [address] [phone] [place], [place] [phone] Social History Tobacco Use Types Packs/Day Years Used Date Smoking Tobacco: Never Assessed Sex Assigned at Date Recorded Not on file documented as of this encounter Plan of Treatment Not on filedocumented as of this encounter Visit Diagnoses Diagnosis Acute laryngopharyngitis documented in this encounter Care Teams Motor Scooter Mechanic Relationship Specialty Start Date End Date Dwaine Holden MD PCP - General 07/28/1996 12/05/07 [address] [place] [address] documented as of this encounter
--- OUTSIDE RECORDS SUMMARY | 2022-04-13 11:08 | XMS_ITS | Encounter Summary ---
:1980 Author Organization [facility] Address [address] [place], [place] [address] [place] [address] Care Team Providers Name Role Phone Dwaine Holden MD Primary Care Provider Unavailable Reason for Visit Reason Comments CONGESTION Sore Throat FOREIGN BODY, THROAT Encounter Details Date Type Department Care Team Description 09/20/2007 Office Visit [facility] Stacy Sierra, GERALDOI (Up per Respiratory Infection) (Primary Dx); Practice MD Sore Throat; [address] [facility] Acute Otitis Media - right [place], [place] [address] Social History Tobacco Use Types Packs/Day Years Used Date Smoking Tobacco: Every Day Alcohol Use Standard Drinks/Week Comments Not Asked 0 (1 standard drink = 0.6 oz pure alcoho l) Sex Assigned at Date Recorded Not on file documented as of this encounter Last Filed Vital Signs Vital Sign Reading Time Taken Comments Blood Pressure 161/80 09/20/2007 10:10 AM CARE MANAGEMENT COORDINATOR Pulse 104 09/20/2007 10:10 AM CARE MANAGEMENT COORDINATOR Temperature - - Respiratory Rate - - Oxygen Saturation - - Inhaled Oxygen Concentration - - Weight 121.1 kg (267 lb) 09/20/2007 10:10 AM CARE MANAGEMENT COORDINATOR Height 177.8 cm (5' 10) 09/20/2007 10:10 AM CARE MANAGEMENT COORDINATOR Body Mass Index 38.31 09/20/2007 10:10 AM CARE MANAGEMENT COORDINATOR documented in this encounter Progress Notes Stacy Sierra - 09/22/2007 10:17 PM CST SUBJECTIVE: Benjamin Orosco is a 26 yr old male presents with 2 days of stuff in lungs. Chest congestion, yesterday started coughing, chest tightness, cough productive of yellow/gree sputum, sore throat off and on, LOPEZ, myalgias. Denies sinus congestion or pressure, ear pressure or pain, fever, chills, N/V/D. Took Robitussun which helped a little. PMH: bronchitis SH: smoker 1/2 ppd OBJECTIVE: BP 161/80 Pulse 104 Ht 5' 10 (1.778 m) Wt 267 lb (121.11 kg) general: no distress, appears diaphoretic Eyes: PERRL, EOMI, conjunctiva clear Ears: TM'(s) erythematous and dull right Nose: clear rhinorrhea, mucosal erythema, mucosal edema and no sinus tenderness Oropharynx: normal. Lips, teeth and gums are normal. Neck: supple and no adenopathy Lungs: CTAB, no wheezing or rhonchi. Not using accessory muscles of respiration Heart: RRR, no murmur rapid strep negative ASSESSMENT: /PLAN: Encounter Diagnoses Code Name Primary? Qualifier ??? 465.9J URI (Upper Respiratory Infection) Yes Plan: CODEINE-GUAIFENESIN 10-100 MG/5ML OR SYRP ??? 462AA Sore Throat Plan: THROAT CULTURE COLLECTION-NS, STREP GRP A, RAPID SCREEN ??? 382.9F Acute Otitis Media - right Plan: ZITHROMAX Z-ELBA 250 MG OR TABS Right OM - tx with abx, tylenol prn fever and pain, codeine cough medicine, push fluids, f/u if no improvement or worsening symptoms. MANAGEMENT COORDINATOR documented in this encounter Nursing Notes 09/20/2007 9:40 AM CST >> DAYNE X REGIS Tue Sep 20, 2007 10:07 AM Hm was discussed with pt and will follow up. Dayne E. ASSISTANT MANAGER QUALITY MANAGEMENT 09/20/2007 documented in this encounter Plan of Treatment Not on filedocumented as of this encounter Procedures Procedure Name Priority Date/Time Associated Diagnosis Comme nts STREP GRP A, RAPID Waiting 09/20/2007 10:24 AM Sore Throat Re sults for this SCREEN CARE MANAGEMENT COORDINATOR procedure are i n the results section. documented in this encounter Results STREP GRP A, RAPID SCREEN (09/20/2007 10:24 AM CARE MANAGEMENT COORDINATOR) Patholo gist Method Time Signature Patient Home None [facility] # Patient Work None [facility] # Grp A Rapid Negative NE[facility] Screen Grp A Culture Negative NEG [facility] Final Specimen Anatomical Collection Method Collection Time Receive d Time (Source) Location / / Volume Laterality 09/20/2007 10:24 09/20/2007 AM CARE MANAGEMENT COORDINATOR 10:25 AM CARE MANAGEMENT COORDINATOR Stacy Sierra MD LAB_1 Performing Organization Address City/State/ZIP Code Phon e Number [facility] [phone] [facility] [address] [address] documented in this encounter Visit Diagnoses Diagnosis URI (upper respiratory infection) - Prim cassie Acute upper respiratory infections of un specified site Sore throat Acute pharyngitis Acute Otitis Media - right Unspecified otitis media documented in this encounter Care Teams Blending Supervisor Relationship Specialty Start Date End Date Dwaine Holden MD PCP - General 07/28/1996 12/05/07 [address] [place] [address] documented as of this encounter
--- OUTSIDE RECORDS SUMMARY | 2022-04-13 11:08 | XMS_ITS | Encounter Summary ---
:1980 Author Organization [facility] Address [address], [place] [address] Care Team Providers Name Role Phone Suhas Lyon MD Primary Care Provider Encounter Details Date Type Department Care Team Description 09/26/1996 Orders Only Shazia Barry MD [address] [place], [place] [address] (Wo rk) Social History Tobacco Use Types Packs/Day Years Used Date Smoking Tobacco: Never Assessed Sex Assigned at Date Recorded Not on file documented as of this encounter Plan of Treatment Not on filedocumented as of this encounter Visit Diagnoses Not on filedocumented in this encounter Care Teams Program Coordinator For Residence Life Relationship Specialty Start Date End Date Suhas Lyon MD PCP - General 06/13/20 [address] [place] [address] documented as of this encounter
--- OUTSIDE RECORDS SUMMARY | 2022-04-13 11:08 | XMS_ITS | Encounter Summary ---
:1980 Author Organization [facility] Address [address] [place] [address] Care Team Providers Name Role Phone Unassigned, Provider Primary Care Provider Unavailable Reason for Visit Reason Comments Routine Eye Exam KEIRA??? Patient states would like to get an RX for glasses. Does not want to get fitting for cont acts today. Wants to discontinue with CL for a while. Says no visual problems. Has contacts on today. Encounter Details Date Type Department Care Team Description 04/15/2009 Office Visit [facility] Optometr y Juan M Alonso, OD Examination of Eyes and Vision (Primary Dx); [address] [place] [id number] [facility] [address] Unspecified Astigmatism; [place], [place] [address] [place], [place] Hyperopia [phone] [address] Social History Tobacco Use Types Packs/Day Years Used Date Smoking Tobacco: Every Day Alcohol Use Standard Drinks/Week Comments Not Asked 0 (1 standard drink = 0.6 oz pure alcoho l) Sex Assigned at Date Recorded Not on file documented as of this encounter Progress Notes Juan M Alonso - 04/15/2009 6:17 PM CDT HPI Chief Complaint Patient presents with ??? Routine Eye Exam KEIRA??? Patient states would like to get an RX for glasses. Does not want to get fitting for contacts today. Wants to discontinue with CL for a while. Says no visual problems. Has contacts on today. He has had strabismus surgery for eso condition. History Reviewed Assessment High hyperopic astigmatism. Plan Spectacle Prescription given Return to clinic in 1 year(s) for routine eye exam. Juan M Alonso, OD documented in this encounter Plan of Treatment Not on filedocumented as of this encounter Visit Diagnoses Diagnosis Examination of eyes and vision - Primary Astigmatism, unspecified Hyperopia Hypermetropia documented in this encounter Care Teams Weight Clerk Relationship Specialty Start Date End Date Unassigned, Provider PCP - General 12/06/07 10/21/[address] [place] [address] documented as of this encounter
--- OUTSIDE RECORDS SUMMARY | 2022-04-13 11:08 | XMS_ITS | Encounter Summary ---
:1980 Author Organization [facility] Address [address] [place] [address] Care Team Providers Name Role Phone Dwaine Holden MD Primary Care Provider Unavailable Encounter Details Date Type Department Care Team Description 09/10/1997 Office Visit [facility] ADJUSTMENT DISORDER NOS; PSYCHOLOGICAL S TRESS NEC Social History Tobacco Use Types Packs/Day Years Used Date Smoking Tobacco: Never Assessed Sex Assigned at Date Recorded Not on file documented as of this encounter Progress Notes Rivas Palma - 09/10/1997 12:00 AM CSTD: This is our 2nd meeting, the first occurring about 2 months ago. Efren's mental status did not seem to have changed much since our first meeting. He did not follow up on a referral to Dr. Combs for possible medical treatment for his depression. He indicates today, however, that he's willing to reconsider that. 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 Benjamin has been pushed somewhat by his mother to reconsider this. In the general discussion it did appear that this might be a good time for Benjamin to try the antidepressant medication since he does not have a lot of pressure on him to perform in the next few months. He was concerned that the medication might dull his responses. Efren seemed a little more [id number] today and quite frankly a little less depressed than he was in our last session. I agreed to refer him on to see on of our psychiatrists for follow up. A: Adjustment reaction NOS, complicated by transition from high school to college problems. Major depression needs to be ruled out. P: We have agreed to a follow up session after Efren's interview with one of our psychiatrists. Since he has some basic ambivalence about trying medication I think supportive contact might be helpful to see about his reaction to side-effects. cc: YTICAL LAB TECHNICIAN documented in this encounter Plan of Treatment Not on filedocumented as of this encounter Visit Diagnoses Diagnosis Unspecified adjustment reaction (HR[facility]) Unspecified adjustment reaction Other psychological or physical stress, not elsewhere classified(V62.89) (HRC) Other psychological or physical stress, not elsewhere classified documented in this encounter Care Teams Animated Cartoons Painter Relationship Specialty Start Date End Date Dwaine Holden MD PCP - General 07/28/1996 12/05/07 [address] [place] [address] documented as of this encounter
--- OUTSIDE RECORDS SUMMARY | 2022-04-13 11:08 | XMS_ITS | Encounter Summary ---
:1980 Author Organization [facility] Address [address] [place] [address] Care Team Providers Name Role Phone Dwaine Holden MD Primary Care Provider Unavailable Reason for Visit Reason Comments PAIN, GENERALIZED upper back short of breath Encounter Details Date Type Department Care Team Description 08/09/1999 Telephone Careline Dayanara Tolentino RN PAIN, GENERALIZED [address] AFTER HOURS CARE (upper back short of [place], [place] [address] breath) [phone] [place] [address] Social History Tobacco Use Types Packs/Day Years Used Date Smoking Tobacco: Never Assessed Sex Assigned at Date Recorded Not on file documented as of this encounter Nursing Notes 08/09/1999 11:59 PM LOGISTICS ACCOUNT MANAGER >> CALL RECEIVED. Contact: Jonathan Robertson [phone] >> DAYANARA TOLENTINO 08/09/1999 04:38 am Began with pain in R upper back about 10 PM startes in voodoo pain is constant and intense barely able to move to get him up ?lungs congested no temp. has a deep cough pain is severe colour ok is short of breath had some Tylenol with Codeine on hand and had given him 2 tabs.about 5 mins. ago to see if could get him up no injury PMH:normally healthy MEDS:none ALLERGIES:penicillin PLAN:will wait a short time to see if RX takes hold and then will take him to [facility] ER /offered 911 and said that they would try to take him in on their own but if unable to will call [address] [facility] documented in this encounter Plan of Treatment Not on filedocumented as of this encounter Visit Diagnoses Not on filedocumented in this encounter Care Teams Hand Roller Relationship Specialty Start Date End Date Dwaine Holden MD PCP - General 07/28/1996 12/05/07 [address] [place] [address] documented as of this encounter
--- OUTSIDE RECORDS SUMMARY | 2022-04-13 11:08 | XMS_ITS | Encounter Summary ---
:1980 Author Organization [facility] Address [address] [place] [address] Care Team Providers Name Role Phone Unassigned, Provider Primary Care Provider Unavailable Reason for Visit Reason Onset Date Comments BUMP(S), NOS 02/11/2009 Encounter Details Date Type Department Care Team Description 02/11/2009 Telephone [facility] Pra ctice Unassigned, Provider BUMP(S), NOS [address] [place], [place] [address] [place] [address] Social History Tobacco Use Types Packs/Day Years Used Date Smoking Tobacco: Every Day Alcohol Use Standard Drinks/Week Comments Not Asked 0 (1 standard drink = 0.6 oz pure alcoho l) Sex Assigned at Date Recorded Not on file documented as of this encounter Nursing Notes Elsie Goncalves - 02/11/2009 1:08 PM CDT Spoke with pt. The rash is located on the brow and cheeks and sides of face. Was in [place] yesterday and temp was over 100 degrees F. Could be a heat rash. No s/s of infection. No itchiness. Rash isslightly raised and red. Advised pt to observe for s/s of infection otherwise keep rash cool and clean. Elsie Goncalves RN 02/11/2009, 1:08 PM NYT Mary Ellen Motley - 02/11/2009 9:53 AM CDT Describe your symptoms (if pain, include location): Face breaking out with bumps When did they start: yesterday What have you tried at home: na Have you been seen for this recently: No.. Can something be prescribed over the counter for this sx?Plse advise documented in this encounter Plan of Treatment Not on filedocumented as of this encounter Visit Diagnoses Not on filedocumented in this encounter Care Teams Pipe Manufacture Supervisor Relationship Specialty Start Date End Date Unassigned, Provider PCP - General 12/06/07 10/21/[address] [place] [address] documented as of this encounter
--- OUTSIDE RECORDS SUMMARY | 2022-04-13 11:08 | XMS_ITS | Encounter Summary ---
:1980 Author Organization [facility] Address [address] [place] [address] Care Team Providers Name Role Phone Suhas Lyon MD Primary Care Provider Encounter Details Date Type Department Care Team Description 05/10/1997 Orders Only Fabian Yousif MD [place], [place] [id number] Social History Tobacco Use Types Packs/Day Years Used Date Smoking Tobacco: Never Assessed Sex Assigned at Date Recorded Not on file documented as of this encounter Plan of Treatment Not on filedocumented as of this encounter Visit Diagnoses Not on filedocumented in this encounter Care Teams Community Service Officer Relationship Specialty Start Date End Date Suhas Lyon MD PCP - General 06/13/20 [address] [place] [address] documented as of this encounter
--- OUTSIDE RECORDS SUMMARY | 2022-04-13 11:08 | XMS_ITS | Encounter Summary ---
:1980 Author Organization [facility] Address [address] [place] [address] Care Team Providers Name Role Phone Suhas Lyon MD Primary Care Provider Encounter Details Date Type Department Care Team Description 12/20/1995 Orders Only Fabian Yousif MD [place], [place] [id number] Social History Tobacco Use Types Packs/Day Years Used Date Smoking Tobacco: Never Assessed Sex Assigned at Date Recorded Not on file documented as of this encounter Plan of Treatment Not on filedocumented as of this encounter Visit Diagnoses Not on filedocumented in this encounter Care Teams Product Marketing Programs Manager Relationship Specialty Start Date End Date Suhas Lyon MD PCP - General 06/13/20 [address] [place] [address] documented as of this encounter
--- OUTSIDE RECORDS SUMMARY | 2022-04-13 11:08 | XMS_ITS | Encounter Summary ---
:1980 Author Organization [facility] Address [address] [place] [address] Care Team Providers Name Role Phone Unassigned, Provider Primary Care Provider Unavailable Reason for Visit Reason Comments ABDOMINAL PAIN middle abdomen-groin to uppe r chest. Started on Wednesday, off and on every 5 minutes Encounter Details Date Type Department Care Team Description 12/08/2007 Office Visit [facility] Abdominal Pain, Other [address] [facility]. Specified Site (Primary [place] [address] 4 Dx) [phone] Social History Tobacco Use Types Packs/Day Years Used Date Smoking Tobacco: Every Day Alcohol Use Standard Drinks/Week Comments Not Asked 0 (1 standard drink = 0.6 oz pure alcoho l) Sex Assigned at Date Recorded Not on file documented as of this encounter Last Filed Vital Signs Vital Sign Reading Time Taken Comments Blood Pressure 130/86 12/08/2007 5:04 PM CDT Pulse 74 12/08/2007 5:04 PM CDT Temperature 37.2 ??C (98.9 ??F) 12/08/2007 5:04 PM CDT Respiratory Rate 14 12/08/2007 5:04 PM CDT Oxygen Saturation - - Inhaled Oxygen Concentration - - Weight - - Height - - Body Mass Index - - documented in this encounter Patient Instructions Patient InstructionsShashi Mckee - 12/08/2007 7:06 PM CDT High Fiber Diet Grains are one of humans' primary sources of carbohydrate or energy as well as a very important source of fiber in the diet. Grains commonly eaten by humans include wheat, rice, corn, barley, and oats.The Western world developed the ability to refine grains several centuries ago, and this process of refining grains has become a worldwide tradition. Refining was created in part because the refined grain produces a softer food that is easier to chew, that was historically important for people whose teeth were basically falling out of their mouths. However the process of refining a grain removes mostof the fiber, as well as removing much of the protein, vitamin, and mineral content of the grain. Inother words refined or processed grains are nutritionally depleted. There has been an attempt to compensate for this by adding back some of the vitamins, but the fiber that is needed in a modern Western diet is still significantly absent. Though fruits and vegetables are also good sources of fiber, fiber from grains appears to be important for routine optimal health in humans. Fiber in the diet has been shown to be beneficial in keeping intestine content movement consistent and therefore potentially decreasing the intestinal exposure to various toxins that invariably pass through the intestines, as well as keeping the intestines from absorbing excessive energy intake. Fiberin the diet tends to make people feel full sooner, and therefore less likely to overeat. Foods that are high in fiber also tend to be low in easily accessible excess energy. Diets low in fiber tend to predispose to: Constipation, hemorrhoids, diverticulitis, possibly colon cancer, obesity, diabetes, high blood pressure, heart disease, and likely many other related conditions. Diets high in fiber are clearly better for the health of the colon, the heart, and the person in general. Your doctor may therefore specifically recommend a high or higher fiber diet just for good health, or for treatment of a specific condition. In making a change to a higher fiber diet, it is best that you change one food at a time, so that you can maintain that change in your diet without feeling overwhelmed by two many new tastes at one time. Over time, individuals who eat a high-fiber diet tend to actually prefer the higher fiber foods over the same food that is refined. In order to obtain a high-fiber diet, you will need to read the food content label. Most whole grainproducts or foods are specifically described by the word whole, and consequently you will need to look for this word on any food label. The first ingredient of any product that is made out of a grain should ideally include the word whole. Most breads are made out of wheat, and therefore you should look for the first ingredient being whole wheat. Breakfast cereals in contrast are made out of a varietyof different grains, but the first ingredient should be a whole grain - read the label! Brown rice is the whole grain version of white rice, and therefore should replace any white rice in your diet. Most pastas, including spaghetti, lasagna, rotini noodles, and elbow noodles all come in a whole grain or whole wheat version, though you'll have to look for them as they are not currently the most commonthing on the shelf - read the food labels! Pizza crusts, buck bread, and burrito shells are all available in whole grain versions as well - once again, you will need to read the labels! Most of the fiber in a potato is in its skin, and consequently most potato products are very poor source of fiber needed to move unwanted energy through your intestines, and therefore most potato products should be avoided or minimally eaten. White flour and sugar (and anything made from them) are refined carbohydrate and therefore should be avoided or minimally eaten in a healthy diet. Finally adequate fiber in the diet should always be accompanied by adequate fluid intake as well, inorder to reap all of the benefits. Enjoy your food, but make it healthy food! documented in this encounter Progress Notes Shashi Mckee - 12/09/2007 1:02 AM CDT History: 27-year-old white male who has been experiencing central abdominal pain that varies in location fromepigastric to suprapubic, but always central without any laterality, and has been present now for 3 to 4 days. Patient states that the pain tends to feel like a strong 8, lasting for 10 to 20 seconds at a time, and occurring as often as every 5 to 10 minutes. Patient acknowledges that the frequency has actually decreased over the past 3 to 4 days, though the intensity has stayed about the same. The pain has not kept the patient awake at night. Patient has had no associated GI symptoms, including no nausea, vomiting, nor diarrhea. Patient also has had no change in bowel habits, with daily bowel movem ents. No black or bloody stool. No symptoms, including no dysuria, frequency, urgency, nor peniledischarge. No fever. No recent travel. Patient is a smoker. Patient was seen a couple weeks back in an emergency room for evaluation of chest tightness and palpitations, for which an EKG produced a reassuring result that sounds like it may have included some PACs or PVCs. Patient's symptoms however resolved with reassurance. Past medical history is otherwise remarkable only for reflux. Patient's only ongoing medication is Prilosec. Patient is allergic to penicillin. Physical exam: Temperature of 98.9, pulse of 74, respiratory rate of 14, and a blood pressure of 130/86. Pleasant young man in no acute distress. In fact the patient appears in no distress, with the exception of a brief single moment during the course of the interview when he winces momentarily, presumably with painin that would have had to have been present for only a few seconds. No CVA tenderness. Abdomen with bowel sounds that are present in either hypo-nor hyperactive, without organomegaly, without masses, and without any tenderness. CBC is remarkable for a WBC of 7.4, hemoglobin of 18, platelets of 198, with a differential with 52 PMNs, 29 lymphs, 14 monos, 3 eosinophils, and 3 basophils. Urinalysis is remarkable for a specific gravity of 1.025, trace of protein, trace of blood on dipstick, and a negative microscopic exam. Assessment: Abdominal pain, etiology uncertain, though with a very reassuring history and presentation, and possibly therefore simply due to anxiety or stress. Plan: 1. Reassurance. 2. Encouraged the patient to seriously consider becoming a nonsmoker, and at the very least minimize smoking at this time. 3. Encourage increased fiber intake along with fluid. Patient is provided with a printed patient instruction handout that reviews a high fiber diet. 4. Patient does not require any treatment or analgesia otherwise, and is to simply expect that his abdominal pain will subside with reassurance over the next 7 days. Patient understands the importance of calling p.r.n. new, persisting, or worsening symptoms. Patient has a physical exam scheduled for December 20, Myrna suggested that he keep this appointment. Shashi Mckee M.D. documented in this encounter Nursing Notes 12/08/2007 5:20 PM CDT >> Misa Hawkins, [facility] Dec 08, 2007 5:05 PM . documented in this encounter Plan of Treatment Not on filedocumented as of this encounter Procedures Procedure Name Priority Date/Time Associated Diagnosis Comme nts COMPLETE BLOOD Routine 12/08/2007 5:39 PM Abdominal Pain, Resu lts for this COUNT-W/DIFF CDT Other Specified Site procedu re are in the results section. UA MICRO IF Routine 12/08/2007 5:39 PM Abdominal Pain, Result s for this CDT Other Specified Site procedu re are in the results section. UA MICRO Routine 12/08/2007 5:39 PM Results f or this CDT procedure are i n the results section. documented in this encounter Results UA MICRO (12/08/2007 5:39 PM CDT) [facility] gist Method Time Signature RBC'S 0-3 0 - 3 [facility] /hpf WBC'S 0 0 - 5 [facility] /hpf Epith, 0 /hpf [facility] Squamous Bact 0 [facility] Casts 0 /lpf [facility] Other Few Mucous [facility] Specimen Anatomical Collection Method Collection Time Receive d Time (Source) Location / / Volume Laterality 12/08/2007 5:39 PM 8 5:40 CDT PM CDT Shashi Mckee MD LAB_1 Performing Organization Address City/State/ZIP Code Phon e Number [facility] [phone] [facility] [address] [address] (ABNORMAL) UA MICRO IF (12/08/2007 5:39 PM CDT) P athologist Signature Appr Yellow [facility] Appr Clear [facility] Sp Gr 1.025 1.005 - [facility] 1.03 Leuk Neg [facility] Nitr Neg [facility] pH 6.0 4.5 - 8.0 [facility] Prot Tr (A) [facility] mg/dl [facility] Gluc Neg [facility] mg/dl [facility] Ket Neg [facility] mg/dl [facility] Urob 0.2 0.2 - 1.0 [facility] EU/dl Bili Neg [facility] Blood Tr (A) [facility] Specimen Anatomical Collection Method Collection Time Receive d Time (Source) Location / / Volume Laterality 12/08/2007 5:39 PM 8 5:40 CDT PM CDT Shashi Mckee MD LAB_1 Performing Organization Address City/State/ZIP Code Phon e Number [email or web address] [phone] [facility] [address] [address] (ABNORMAL) HEMOGRAM/PLTS/DIFF (12/08/2007 5:39 PM CDT) P athologist Signature WBC 7.4 4.0 - 11.0 [facility] k/ul Comment: All Parameters Rechecked RBC 5.58 4.5 - 5.9 M/ul [facility] Hemoglobin 18.0 (H) 13.5 - 17.5 g/dl [facility] ERS HCT 50.8 41.0 - 53.0 % [facility] MCV 91.0 80 - 100 fl [facility] MCH 32.2 26 - 34 pg [facility] MCHC 35.4 32 - 36 % [facility] RDW 12.5 11.5 - 14.5 % [facility] Platelets 198 150 - 450 k/ul [facility] Comment: Slide Checked PMN/Band 52 43 - 72 % [facility] Lymph 29 17 - 43 % [facility] [place] 14 (H) 4 - 12 % [facility] Eos 3 0 - 8 % [facility] Baso 3 (H) 0 - 1 % [facility] Neutrophil Absolute 3.8 1.8 - 7.7 k/ul [facility] Lymph Absolute 2.1 1.0 - 4.8 k/ul [facility] [place] Absolute 1.1 (H) 0.1 - 0.7 k/ul [facility] Eos Absolute 0.2 0.0 - 0.5 k/ul [facility] ERS Baso Absolute 0.2 0.0 - 0.2 k/ul [facility] Specimen Anatomical Collection Method Collection Time Receive d Time (Source) Location / / Volume Laterality 12/08/2007 5:39 PM 8 5:40 CDT PM CDT Shashi Mckee MD LAB_1 Performing Organization Address City/[facility]/ZIP Code Phon e Number [email or web address] [phone] [facility] [address] [id number] documented in this encounter Visit Diagnoses Diagnosis Abdominal pain, other specified site - P rimary documented in this encounter Care Teams Director Organizational Relationship Specialty Start Date End Date Unassigned, Provider PCP - General 12/06/07 [address] [place] [address] documented as of this encounter
--- OUTSIDE RECORDS SUMMARY | 2022-04-13 11:08 | XMS_ITS | Encounter Summary ---
:1980 Author Organization [facility] Address [address] [place] [address] Care Team Providers Name Role Phone Dwaine Holden MD Primary Care Provider Unavailable Encounter Details Date Type Department Care Team Description 07/16/2003 Office Visit [facility] Dwaine Holden MD DEPRESSIVE DISORDER NOS; Medicine [address] [facility] INSOMNIA (PRIMARY INSOMNIA) [address] [place] [address] Social History Tobacco Use Types Packs/Day Years Used Date Smoking Tobacco: Every Day Alcohol Use Standard Drinks/Week Comments Not Asked 0 (1 standard drink = 0.6 oz pure alcoho l) Sex Assigned at Date Recorded Not on file documented as of this encounter Last Filed Vital Signs Vital Sign Reading Time Taken Comments Blood Pressure 100/64 07/16/2003 12:20 PM N[facility] TEACHER Pulse 72 07/16/2003 12:20 PM N[facility] TEACHER Temperature - - Respiratory Rate - - Oxygen Saturation - - Inhaled Oxygen Concentration - - Weight 103 kg (227 lb) 07/16/2003 12:20 PM NSH TEACHER Height - - Body Mass Index - - documented in this encounter Progress Notes 07/16/2003 12:20 PM [facility] TEACHER Benjamin Orosco is here today for discuss antidepressants. Are you having other pain today, that you want to discuss with the provider? -NO Do you need refills on any of your medications today? -NO Preventive Services up to date? -NEEDS: lab Immunizations up to date? yes. -NEEDS: {IMMUNIZATIONS-PT VERSION:[id number]} Do you ever feel physically threatened or emotionally afraid? -NO Tobacco Status reviewed? (see History Social-Substance) -YES security attendant offered? -DECLINED. Aspirin taken daily? -NO BP was taken on the RIGHT arm. BP cuff size used? -Adult Large Health Education given? -NO. Contact phone number [phone] (home) [phone] (work), alternate phone number Penicillin And Derivatives No current prescriptions on file. . [employer] JARET Morales 07/16/2003 12:15 PM LoriDwaine bergeron - 07/16/2003 12:00 AM CSTSUBJECTIVE: [id number] here for a prescription for anti-depressant medication. Present illness: The patient currently has an official residence in [place], but it's highly likely that he'll move back to the [facility] following graduation from college in [employer]. He moved to [place] and is living with his girlfriend in [place]. He is quite unhappy there. He has had difficulty finding work which is a source of great stress. He feels that he's very depressed. Part of it has to do with the work situation, the financial situation and part of it maybe other factors. He's also likely in the process of breaking up with his girlfriend. He thinks that his was actually starting before he got depressed. He had a major depressive disorder in 1997 and was treated with Zoloft at that time and got better and then gradually tapered off of it. He had an intake exam done on 07/11/2003 by Gildardo Teague, see that note. It's quite extensive. The patient had been drinking somewhat heavily and he agrees that he needs to cut down on that. PLAN: At the present time the patient's concerned about finances. His parents are going to help him out, but he's also concerned about tapping into their finances too much. He reassures me that he is not suicidal or homicidal. His sleep is usually difficult. He has typically difficulty falling asleep and then frequently will wake up 2 or 3 times a night, that has not been a major difference. We discussed the anti-depressants, the fact that Prozac is available as a generic, but I'm not sure how much cheaper it would be. The concern is that Prozac will tend to cause more insomnia which may necessitate taking a second medication, if he's already having some sleep disturbance and so I think it might be more beneficial to simply start with Zoloft. We know it worked before without side effects and so it would be likely to work again without side effects. Would also be less likely I think to further exacerbate his insomnia. The expectation is that patient's with depression should typically take this for 6 months. If he stops it in less than 6 months the chance of having a relapse is significantly higher. Typically we would like to see him in follow up in 4 to 6 weeks to see how he is doing. If this is a financial hardship, he could potentially get by without it, bu the best situation would be for him to have a follow up visit with me. He indicates that he does not want a follow up with Gildardo Teague and they already agreed on that. Also discussed the importance of cutting back his alcohol intake, but because the alcohol may contribute to his depression, as well as the fact that the alcohol may interfere with the effectiveness of his meds. Problem: 1. Depression. 2. Persistent sleep disorder. P cc: TEACHER documented in this encounter Plan of Treatment Not on filedocumented as of this encounter Visit Diagnoses Diagnosis Depressive disorder, not elsewhere class ified Persistent disorder of initiating or da ntaining sleep documented in this encounter Care Teams Managing Supervisor Relationship Specialty Start Date End Date Dwaine Holden MD PCP - General 07/28/1996 12/05/07 [address] [place] [address] documented as of this encounter
--- OUTSIDE RECORDS SUMMARY | 2022-04-13 11:08 | XMS_ITS | Encounter Summary ---
:1980 Author Organization Team [employer] Address [address] [address] Care Team Providers Name Role Phone Unassigned, Provider Primary Care Provider Unavailable Reason for Visit Reason Comments NECK PAIN on going, however worse toda y Encounter Details Date Type Department Care Team Description 12/02/2009 Office Visit [facility] Neck Sprain and Strain [address] [facility] (Primary Dx) [place] [phone] Social History Tobacco Use Types Packs/Day Years Used Date Smoking Tobacco: Every Day Comments: 1-2 cigs qd Alcohol Use Standard Drinks/Week Comments Not Asked 0 (1 standard drink = 0.6 oz pure alcoho l) Sex Assigned at Date Recorded Not on file documented as of this encounter Last Filed Vital Signs Vital Sign Reading Time Taken Comments Blood Pressure 138/98 12/02/2009 6:01 PM CDT Pulse 72 12/02/2009 6:01 PM CDT Temperature 36.1 ??C (97 ??F) 12/02/2009 6:01 PM CDT Respiratory Rate 16 12/02/2009 6:01 PM CDT Oxygen Saturation - - Inhaled Oxygen Concentration - - Weight - - Height - - Body Mass Index - - documented in this encounter Patient Instructions Patient InstructionsJimena Corrigan - 12/02/2009 6:35 PM CDT -Muscle strain of the neck: for pain management use ibuprofen (3 tabs, 3 times a day- use with food). Use flexeral as needed. Use vicodin as needed for night pain. Do not use flexeril and vicodin together! Continue with ice or heat for comfort. Avoid jerking or quick movements. Do gentle stretching aspain is decreased. -If symptoms persist or worsen in 5-7 days, then be re-evaluated by primary or urgent care. Considerphysical therapy or chiropractors if neck strains are persistent and intermittent. documented in this encounter Progress Notes Jimena Corrigan - 12/03/2009 2:46 PM CDT CHIEF COMPLAINT: Neck pain SUBJECTIVE: Benjamin Orosco is a 29 yr male coming to urgent care for neck pain. ONSET OF INJURY: 12/02 in the afternoon MECHANISM OF INJURY: He was doing simple stretching of the neck when he felt very tight muscles thatwere spastic and prohibited him from moving his head. He states the most tension is felt behind the neck and upper shoulders. DURATION: Since the afternoon it is constant DENIES: Radiation of the pain down the back or arms, either, chest pains, nausea, diaphoresis. TREATMENTS ATTEMPTED: Rest and heat with no significant improvement HX: He has strained his neck before which resolved on its own ; however this episode is more intense. Denies any motor vehicle accident or neck injury in the past. 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 No atrophy or hypertrophy MUSCULOSKELETAL: -ROM: Reduced ROM of all neck movements (flexion, extension, rotation, lateral bend). Full ROM of shoulders and upper extremities. Strength 5/5 for upper extremity. Strength of neck deferred due to pain. -Palpation: Diffuse Pain of palpation on neck and upper back. No pain radiated. NEURO: -Sensation intact from neck to fingers bilaterally -Reflexes 2+ for biceps and brachioradialis bilaterally CARDIO: Radial pulses strong bilaterally ASSESSMENT & PLAN: Muscle strain of the neck -pain management: use ibuprofen (3 tabs, 3 times a day- use with food). Gastroesophageal reflux disease has been in control ; however if it acts up patient will discontinue use of ibuprofen. Patient has used Flexeril before. He may use flexeril as needed. Use vicodin as needed for night pain. Do not use flexeril and vicodin together! Continue with ice or heat for comfort. Avoid jerking or quick movements. Do gentle stretching as pain is decreased. -If symptoms persist or worsen in 5-7 days, then be re-evaluated by primary or urgent care. Considerphysical therapy or chiropractors if neck strains are persistent and intermittent. -Patient is in agreement and understanding of diagnosis, treatment and plan. Jimena Corrigan PA-C 12/03/2009, 2:39 PM documented in this encounter Nursing Notes 12/02/2009 6:00 PM CDT >> Patricia De La Rosa LPN Mon Dec 02, 2009 6:03 PM . documented in this encounter Plan of Treatment Not on filedocumented as of this encounter Visit Diagnoses Diagnosis Sprain of neck - Primary documented in this encounter Care Teams Wind Turbine Mechanical Engineer Relationship Specialty Start Date End Date Unassigned, Provider PCP - General 12/06/07 10/21/[address] [place] [id number] documented as of this encounter
--- OUTSIDE RECORDS SUMMARY | 2022-04-13 11:08 | XMS_ITS | Encounter Summary ---
:1980 Author Organization [employer] Address [address] [place] [address] Care Team Providers Name Role Phone Rodolfo Ortega MD Primary Care Provider Reason for Visit Reason Onset Date Comments BLOATED 10/22/2010 Encounter Details Date Type Department Care Team Description 10/22/2010 Telephone Careline Unassigned, Provider BLOATED [address] [place], [place] [address] [place] [address] Social History Tobacco Use Types Packs/Day Years Used Date Smoking Tobacco: Every Day Smokeless Tobacco: Never Comments: 1 pk per wk Alcohol Use Standard Drinks/Week Comments Not Asked 0 (1 standard drink = 0.6 oz pure alcoho l) Sex Assigned at Date Recorded Not on file documented as of this encounter Nursing Notes Lainey Welch, RN - 10/22/2010 1:51 PM CST Returned call to pt C/O feeling like abd is bloated x10 days Denies any abd pain, fever, n/v/d, constipation, urinary symptoms, back pain Had normal BM this morning No hx of abd surgeries TRIAGE REFERENCE: ABDOMINAL PAIN - ADULT CNG (c) 2009 STAT SYMPTOMS None PMH: Patient Active Problem List Diagnoses Code ??? Persistent Disorder of Initiating or Maintaining Sleep 307.42 ??? Alcohol Dependence, in short term Remission 303.93B ??? Anxiety Disorder NOS 300.00G Medication Allergies?: Penicillin and derivatives and Other CURRENT MEDICATIONS Current outpatient prescriptions Medication Sig ??? gabapentin (AKA NEURONTIN) 300 MG capsule one capsule three times daily as needed for anxiety; may increase to two capsules three times daily as needed ??? OMEPRAZOLE (PRILOSEC) 10MG ORAL CAPS Take one capsule by mouth every day. PLAN Advised clinic/UC eval. [facility] but pt declines. Reviewed worsening/stat symptoms to watch for - and advised ER/call 911 if those symptoms occur. Encouraged to call back anytimewith any questions, concerns, changes in symptoms. Pt/caller verbalized understanding of recommendations, denies further questions and is agreeable to plan. Lainey Welch RN STRIP FINISHER Brandi Leslie - 10/22/2010 1:46 PM CST Does the patient currently have [facility] insurance?Yes Which care system is the patient affiliated with?[facility] Situation: Severe constipation A nurse will call you back within the next hour. If you have not heard from a nurse, please feel free to call us back at [phone] and state that you are waiting for a callback. STRIP FINISHER documented in this encounter Plan of Treatment Not on filedocumented as of this encounter Visit Diagnoses Not on filedocumented in this encounter Care Teams Alterations Manager Relationship Specialty Start Date End Date Rodolfo Ortega MD PCP - General Family Practice 10/22/10 10/02/14 [address] [place], [place] [id number] documented as of this encounter
--- OUTSIDE RECORDS SUMMARY | 2022-04-13 11:08 | XMS_ITS | Encounter Summary ---
:1980 Author Organization [employer] Address [address] [place] [address] Care Team Providers Name Role Phone Unassigned, Provider Primary Care Provider Unavailable Encounter Details Date Type Department Care Team Description 05/08/2009 Office Visit [facility] Katheryn Shahid MD Alcohol Dependence, in short term Remiss ion (Primary Dx); [address] [facility]. [address] [facility] Persistent Disorder of Initiating or Geeta ntaining Sleep [address] [place], [place] [phone] Social History Tobacco Use Types Packs/Day Years Used Date Smoking Tobacco: Every Day Alcohol Use Standard Drinks/Week Comments Not Asked 0 (1 standard drink = 0.6 oz pure alcoho l) Sex Assigned at Date Recorded Not on file documented as of this encounter Progress Notes Katheryn Shahid - 05/08/2009 10:00 AM CDT Benjamin Orosco 05/08/2009 Psychiatric Follow-Up Visit Current Complaint: Today he reports that since last month when I saw him he was able to stop drinking entirely for about 3 weeks. Since then, he has had a couple of beers on Wednesday. He did talk with his and was honest her about his drinking pattern. He is happy to be under control. He did not have his liver functions tested and did not feel he needed a referral to [facility]. Trazodone was helpful at about 100 mg at bedtime, plus he gave himself more time to sleep. His exercise physiologist's nurse suggested that trazodone might be addicting and so he went off of that. Despite that, he is sleeping relatively well; 5-6 hours at night. He has had no further panic attacks or depression -- other than when he had to miss work for a few days due to a corneal abrasion. Medical Review of Systems: Corneal abrasion sustained while asleep from a corner of the pillow, apparently. 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 His affect is calm and cheerful. His speech is of normal rate and loudness. He shows no movement or gait abnormalities. His form of thought is logical and goal-directed and thought content is without delusions, hallucinations or suicidal ideation. Insight, judgment and cognition are intact. Assessment: The patient is aware that he may be prone to excessive alcohol use in the future, but for now he has the support of his and is taking care of himself. As he still hasn't had a physicalexam despite a history of borderline high blood pressure, I also recommend that he see a primary care provider for ongoing care. In the meantime I suggested checking in with me in 6 months, restarting the trazodone as needed, and come in earlier should he have a recurrence of depression, panic attacks, insomnia, or increased alcohol use. Diagnosis: Timpson I: Major Depressive Disorder, Recurrent, in Remission Alcohol Dependence, and short-term remission Persistent Disorder of Initiating or Maintaining Sleep, in remission History of hypnagogic hallucinations Timpson II: no diagnosis Timpson III: esophageal reflux disease History of elevated blood pressure Plan: Restart if needed: Outpatient ordered medications Medication Sig trazodone (AKA DESYREL) 100 MG tablet one at bedtime as needed for sleep Follow-up visit: 6 months, or earlier if needed Visit Summary: 25 minutes with >50% of the time spent on educational counseling regarding treatment options and risk for resumption of alcohol abuse Date: 05/08/2009 Summary: Decreased alcohol consumption and improvement in sleep Plan: Use trazodone p.r.n., refrain from drinking more than 10 alcoholic drinks per week, and followup in 6 months Katheryn Shahid MD documented in this encounter Plan of Treatment Not on filedocumented as of this encounter Visit Diagnoses Diagnosis Alcohol Dependence, in short term Remiss ion - Primary Other and unspecified alcohol dependence , in remission Persistent disorder of initiating or geeta ntaining sleep documented in this encounter Care Teams Second Steward Relationship Specialty Start Date End Date Unassigned, Provider PCP - General 12/06/07 10/21/[address] [place] [id number] documented as of this encounter
--- OUTSIDE RECORDS SUMMARY | 2022-04-13 11:08 | XMS_ITS | Encounter Summary ---
:1980 Author Organization [employer] Address [address], [place] [address] Care Team Providers Name Role Phone Dwaine Holden MD Primary Care Provider Unavailable Reason for Visit Reason Comments CHEST PAIN--ED Chest tightness since 830AM. Comes & Goes. Irreg pulse. Encounter Details Date Type Department Care Team Description 11/21/2007 Emergency [facility] Prakash Bishop Heart Palpitations [address] Ramos MD (Primary Dx) [place] [address] [address] [facility] [phone] [place], [place] [phone] (Wo rk) Social History Tobacco Use Types Packs/Day Years Used Date Smoking Tobacco: Every Day Alcohol Use Standard Drinks/Week Comments Not Asked 0 (1 standard drink = 0.6 oz pure alcoho l) Sex Assigned at Date Recorded Not on file documented as of this encounter Last Filed Vital Signs Vital Sign Reading Time Taken Comments Blood Pressure 130/70 11/21/2007 2:23 PM CDT Pulse 77 11/21/2007 2:23 PM CDT Temperature 36.7 ??C (98 ??F) 11/21/2007 12:04 PM CDT Respiratory Rate 17 11/21/2007 2:23 PM CDT Oxygen Saturation 97% 11/21/2007 2:23 PM CDT Inhaled Oxygen Concentration - - Weight - - Height - - Body Mass Index - - documented in this encounter Discharge Instructions Discharge InstructionsAntwan Watson - 11/21/2007 2:22 PM CDT Dear Mr. Orosco, Thank you for choosing [facility] for your emergency medical needs. You have received emergency care only and your condition may change. Therefore, we highly recommend you follow-up with your physician as directed. For follow-up care contact: Please follow up with your primary care clinic/provider. Further workup and treatment may be needed if symptoms persist, worsen or new related symptoms occur. [facility] [phone] For follow-up care, you should be seen within 5-7 days by your regular doctor if you continue to have heart palpitations. Return to the ER if you develop any chest pain or shortness of breath. Avoid caffeine. When you see your doctor, bring your medications and instructions to the office. If you had x-rays,an EKG, or lab tests today, they have been reviewed by your emergency department doctor. We will contact you at once if other important findings are notified after further review of our staff. If you do not continue to improve or if your condition worsens, please call your doctor or the emergency roomright away. I understand that my condition may require more care and will arrange for further treatment as recommended. Your medical provider or nurse discussed with you the following: * Danger signs to watch out for when you got home. * If you were given new medication, we discussed how to take the new medication. * If you were given new medication, we discussed the possible side effects, or referred you to talkto the pharmacist. * If you have any questions or concerns after you leave the ED, then you knew who to call. If you would like to be seen in a [facility] clinic, please call the [facility] Appointment Desk at [phone] anytime between 7:00 AM and 9:00 PM, 7 days a week, 365 days a year (Hearing Impaired: [phone]). Please bring these instructions with you when you are seen in your follow-up appointment. Co-pays for this visit may be paid for at the discharge desk. AttachmentsThe following attachments cannot be sent through Care Everywhere. Palpitations (Irregular Heart Beat)documented in this encounter Medications at Time of Discharge Medication Sig Dispensed Refills Start Date End Date OMEPRAZOLE (PRILOSEC) Take one capsule by 0 09/2012/19/2015 10MG ORAL CAPS mouth every day. documented as of this encounter ED Notes Antwan Watson - 11/21/2007 2:33 PM CDT [facility] Emergency Department Visit Note Patient Name: Benjamin Orosco Date of : 1980 Visit note has been dictated: see dictated note ( ) PMH: No past medical history on file. No past surgical history on file. Meds: Medications the patient reported as taking as of 11/21/2007: OMEPRAZOLE (PRILOSEC) 10MG ORAL CAPS, Take one capsule by mouth every day. , Disp: , Rfl: Allergies: Penicillin and derivatives Social and Family History: History Substance Use Topics ??? Tobacco Use: Yes ??? Alcohol Use: Not on file No family history on file. Review of Systems: Please see [employer] flowsheet for review of systems. Condition on disposition: Stable Antwan Watson - 11/21/2007 2:30 PM CDT VISIT DATE: 11/21/2007 CHIEF COMPLAINT: Chest pain. HISTORY OF PRESENT ILLNESS: This is an otherwise healthy 26-year-old male who comes in complaining of sensation of chest palpitations that has been occurring intermittently for the last several weeks.He states the episodes occur 1 to 2 times per hour and he feels an extra beating sensation in his chest, which is then followed by a sensation of chest tightness, although he has no associated shortness of breath and there is no exertional component. The patient had an episode this morning that was accompanied by some lightheadedness, which concerned him and brought him to the ER today. He denies anynear syncope or syncope. He states that his palpitations sometimes get worse with deep inspiration or after eating. He has had no radiation of the chest pressure. His symptoms are essentially resolved here in the ED. PAST MEDICAL HISTORY: Gastroesophageal reflux disease. PAST SURGICAL HISTORY: None. MEDICATIONS: Prilosec. ALLERGIES: PENICILLIN. SOCIAL HISTORY: He does use tobacco. He states that he uses alcohol socially, but then states that he drinks daily approximately 2 to 3 drinks. He does occasionally use THC, although none recently anddenies any cocaine use. Please see [employer] for complete review of systems. PHYSICAL EXAM Vital signs: Temp 98.0, blood pressure 143/97, HR 78, RR 16, SpO2 99% on room air. General: A&O x4, no acute distress, conversational and appropriate to question and speaking in complete sentences. Skin: No rashes or petechiae. HEENT: His pupils are equal and reactive with no scleral icterus or conjunctivitis. His oropharynx is clear without erythema or exudate. Neck: Supple, no lymphadenopathy or stridor and no bruits. Chest: Lungs clear bilaterally without crackles or wheezes. CV: Regular rate and rhythm without murmur. Abdomen: Soft, nontender, nondistended. No guarding or peritoneal signs. Bowel sounds are present and normal. Extremities: No edema. Pulses are intact and equal bilaterally in his wrists. ED COURSE: This is an otherwise healthy 26-year-old male who comes in complaining of a several weekhistory of intermittent chest palpitations. He has no associated shortness of breath and no exertional component. He actually states that when the palpitations come on, it makes him feel as though he has to catch his breath, but is unable to. During my physical exam on his bedside monitor, he had no ectopic heartbeats; however, when we obtained the electrocardiogram, it showed a sinus rhythm at 72 beats per minute with frequent monomorphic premature atrial contractions. He is not noted to have any ectopic ventricular beats. There is no acute ST or T wave abnormalities. On further discussion with the patient, it appears that he develops a sensation of palpitations, which then make him extremely anxious and he then develops some of the chest pressure, which then resolves with his anxiety. Given hisotherwise generally healthy status, as well as only premature atrial beats on his electrocardiogram,I do not feel that serious underlying cardiac etiology is evident at this time. I did discuss limiting his caffeine intake, as well as smoking cessation and decreasing his alcohol intake and also stopping any illicit drug use. I feel that these interventions alone may very well control his PACs. He isnoted to have stable vital signs and has been stable throughout his ED course. He will follow up with his regular physician in 1 to 2 weeks if he continues to have these sensations. I did advise him toreturn to the ER immediately if he develops any miguel chest pain or any shortness of breath associated with his symptoms. ASSESSMENT 1. Palpitations. 2. Premature atrial contractions. DISPOSITION: Discharge home in stable condition with followup as needed. Antwan Watson MD Staff: Prakash Bishop MD bev Dictated: 11/21/2007 14:30:32 Transcribed: 2007 14:25:51 Doc #: [id number] cc:Prakash Bishpo MD, Attending Physician Dwaine Holden MD, Primary Physician 1 Page 2 Patient Name: BENJAMIN OROSCO Visit Date: 11/21/2007 EMERGENCY MEDICINE NOTE CONFIDENTIAL MEDICAL RECORD [address] [id number] Page 1 Patient: BENJAMIN OROSCO [id number] Date of : 1980 Age: 26Y Visit Date: 11/21/2007 EMERGENCY MEDICINE NOTE Saranya Potts - 11/21/2007 2:27 PM CDT [facility] ED Nursing Discharge Note Patient Name: Benjamin Orosco Date of : 1980 Admission Date/Time: 11/21/2007 11:59 AM Attending MD: Prakash Bishop Patient discharged: to Home. Patient accompanied by: relative. Transported by: Walked Valuables were taken home by patient: Yes Work/School Slip given: NO Discharge instructions given and explained to patient: Yes Discharge prescriptions given to patients: No, none written Patient verbalized understanding. Yes Patient level of pain on discharge: 0 Patients condition on discharge related to chief complaint and treatment in ED: Pt given d/c instructions on heart palpitations. Instructed on when to come back to the ED. Verbalized understanding and signed d/c instructions. Pt ambulated out of the ED. ---End of Report--- Prakash Bishop - 11/21/2007 12:38 PM CDT [facility] Emergency Department Attending Supervision Note Patient Name: Benjamin Orosco Date of : 1980 I performed the varghese elements of history and exam, and agree with resident's findings and plan of care as discussed with Dr. Warren Watson. I have reviewed and agreed with the PMH, FH, SOC, ROS. Please see today's note by resident physician. Patient with occasional PAC's which he is able to feel. Becomes anxious when he feels them and then develops chest tightness with some difficulty breathing. Witnessed while I was in the patient's room.No evidence or risk factors for coronary artery disease. EKG without acute ischemic changes. Does have family hx of early coronary artery disease so needs referral to primary physician for cholesterol testing and full physicial. Assessment: Chest pain PAC's Anxiety Plan: ECG HOme Author: Prakash Bishop MD Saranya Potts - 11/21/2007 12:34 PM CDT Pt brought back to room 21 and placed on the monitor car operator. Pt has been having chest tightness andlightheadedness that is worse over the past week. Denies any chest pain or sob at this time. Does have sob with exertion. LS clear. Denies any etoh or street drug use. Only takes prilosec. Has been eating and drinking fluids. Placed on the monitor car operator and given the call light. Waiting to be seen by MD. Family at the bedside. Misa Polk - 11/21/2007 12:06 PM CDT Sats 100% on RA- HR 70's- presure 09/25 now- + light headed when symptoms are worse Misa Polk - 11/21/2007 12:03 PM CDT chest pressure and pounding, light headed on and off for past week- onset today while at rest at work- + sob- worse with deep breath- no cardiac history documented in this encounter Plan of Treatment Not on filedocumented as of this encounter Procedures Procedure Name Priority Date/Time Associated Diagnosis Comme nts ECG 12-LEAD ROUTINE STAT 11/21/2007 1:12 PM Re sults for this CDT procedure are i n the results section. documented in this encounter Results ECG 12-LEAD (11/21/2007 1:12 PM CDT) P athologist Signature Ventricular Rate 72 BPM MUSE Atrial Rate 75 BPM MUSE P-R Interval 134 ms MUSE QRS Duration 88 ms MUSE QT 390 ms MUSE QTc 427 ms MUSE P [place] 25 degrees MUSE R [place] 64 degrees MUSE T [place] 57 degrees MUSE URL Link MUSE Specimen (Source) Anatomical Collection Method Collection Time Re ceived Time Location / / Volume Laterality 11/21/2007 1:12 PM CDT Narrative MUSE - 11/23/2007 7:42 AM CDT Sinus rhythm with Premature atrial complexes Otherwise normal ECG No previous ECGs available Prakash Bishop MD EKG Performing Organization Address City/State/ZIP Code Phon e Number MUSE RHP MUSE documented in this encounter Visit Diagnoses Diagnosis Heart palpitations - Primary Palpitations documented in this encounter Care Teams Financial Aid Coordinator Relationship Specialty Start Date End Date Dwaine Holden MD PCP - General 07/28/1996 12/05/07 [address] [place] [address] documented as of this encounter
--- OUTSIDE RECORDS SUMMARY | 2022-04-13 11:08 | XMS_ITS | Encounter Summary ---
:1980 Author Organization [facility] Address [address] [place] [address] Care Team Providers Name Role Phone Dwaine Holden MD Primary Care Provider Unavailable Encounter Details Date Type Department Care Team Description 10/09/1997 Office Visit [facility] Palma Social History Tobacco Use Types Packs/Day Years Used Date Smoking Tobacco: Never Assessed Sex Assigned at Date Recorded Not on file documented as of this encounter Progress Notes Rivas Palma - 10/09/1997 12:00 AM CSTNO SHOW cc: LE CONTROL CHENILLER Rivas Palma - 10/09/1997 12:00 AM CSTNO SHOW cc: LE CONTROL CHENILLER documented in this encounter Plan of Treatment Not on filedocumented as of this encounter Visit Diagnoses Not on filedocumented in this encounter Care Teams Cyber Security Manager Relationship Specialty Start Date End Date Dwaine Holden MD PCP - General 07/28/1996 12/05/07 [address] [place] [address] documented as of this encounter
--- OUTSIDE RECORDS SUMMARY | 2022-04-13 11:08 | XMS_ITS | Encounter Summary ---
:1980 Author Organization [facility] Address [address] [place] [address] Care Team Providers Name Role Phone Dwaine Holden MD Primary Care Provider Unavailable Encounter Details Date Type Department Care Team Description 08/30/1997 Office Visit [facility] Ori Combs MD [address] [place], [place] [address] Social History Tobacco Use Types Packs/Day Years Used Date Smoking Tobacco: Never Assessed Sex Assigned at Date Recorded Not on file documented as of this encounter Progress Notes Ori Combs - 08/30/1997 12:00 AM CSTBenjamin Orosco is a no show. cc: Ori Combs MD E HANGER documented in this encounter Plan of Treatment Not on filedocumented as of this encounter Visit Diagnoses Not on filedocumented in this encounter Care Teams Tank Car Loader Relationship Specialty Start Date End Date Dwaine Holden MD PCP - General 07/28/1996 12/05/07 [address] [place] [address] documented as of this encounter
--- OUTSIDE RECORDS SUMMARY | 2022-04-13 11:08 | XMS_ITS | Encounter Summary ---
:1980 Author Organization [employer] Address [address], [place] [address] Care Team Providers Name Role Phone Dwaine Holden MD Primary Care Provider Unavailable Encounter Details Date Type Department Care Team Description 05/10/1997 [facility] Fabian Yousif BRO NCHITIS NOS; Practice MD TOBACCO USE DISORDER [address] [place], [place] [phone] Social History Tobacco Use Types Packs/Day Years Used Date Smoking Tobacco: Never Assessed Sex Assigned at Date Recorded Not on file documented as of this encounter Progress Notes Fabian Yousif - 05/10/1997 12:00 AM CDTS: This 16-year-old has had a cough three weeks of bronchitic proportion. He may have had occasional chill. He coughs up yellow/green matter, has wheeze and rattle only occasionally and that is when the cough is pronounced. He smokes one pack of cigarettes per day. He denies any sinus symptoms, history of allergies. O: His temperature is 98.1. Examination of the ears, throat, glands, lungs essentially negative. A: Bronchitis. Tobacco use. P: E-Mycin 250 QID (#40). Vicodin tablets (#30). Recheck ten days if symptoms not resolved. The patient was in with his mother today and rather than talking about smoking, I spent just a few minutes talking about chronic obstructive pulmonary disease and its effect in a rather graphic story. cc: Fabian Yousif MD documented in this encounter Plan of Treatment Not on filedocumented as of this encounter Visit Diagnoses Diagnosis Bronchitis, not specified as acute or ch ronic Tobacco use disorder (HRC) Tobacco use disorder documented in this encounter Care Teams Assistant Bookkeeper Relationship Specialty Start Date End Date Dwaine Holden MD PCP - General 07/28/1996 12/05/07 [address] [place] [address] documented as of this encounter
--- OUTSIDE RECORDS SUMMARY | 2022-04-13 11:08 | XMS_ITS | Encounter Summary ---
:1980 Author Organization [employer] Address [address] [place] [address] Care Team Providers Name Role Phone Unassigned, Provider Primary Care Provider Unavailable Reason for Referral Specialty Diagnoses / Procedures Referred By Contact Refer red To Contact Giselle Wells MD [address] [place], [place] [address] Referral ID Status Reason Start Date Expiration Date Visits Requ ested Visits Authorized Scheduling Instructions If an appointment with [employer] [facility] has been advised and you have not been contacted to schedule that appointm ent within 3 business days, please call [phone] for assistance. Reason for Visit Reason Comments WOUND, SKIN left ring finger Encounter Details Date Type Department Care Team Description 01/05/2009 Office Visit [facility] Allergic Dermatitis (Primary Dx); [address] Elevated Blood Pressure Read ing without Diagnosis of Hypertension [place] [address] Social History Tobacco Use Types Packs/Day Years Used Date Smoking Tobacco: Every Day Alcohol Use Standard Drinks/Week Comments Not Asked 0 (1 standard drink = 0.6 oz pure alcoho l) Sex Assigned at Date Recorded Not on file documented as of this encounter Last Filed Vital Signs Vital Sign Reading Time Taken Comments Blood Pressure 136/100 01/05/2009 1:35 PM CDT Pulse 76 01/05/2009 1:35 PM CDT Temperature 36.6 ??C (97.9 ??F) 01/05/2009 1:35 PM CDT Respiratory Rate 20 01/05/2009 1:35 PM CDT Oxygen Saturation - - Inhaled Oxygen Concentration - - Weight - - Height - - Body Mass Index - - documented in this encounter Progress Notes Giselle Wells - 01/07/2009 10:28 PM CDT S: Benjamin Orosco is a 28 yr old male here because of a rash on his left ring finger. He got a week ago, wore the ring for 3 days, then took it off because he developed a rash under it. The rash has not improved in the 4 days the ring has been off. He has a history of nickel sensitivity, had a previous rash caused by a belt buckle. He has silver earrings in both ears that have never caused him a problem. He has already ordered a replacement wedding band made of [place]. No other health problems today. He is a smoker, cutting down currently. Current outpatient prescriptions prior to encounter Medication Sig Dispense Refill ??? OMEPRAZOLE (PRILOSEC) 10MG ORAL CAPS Take one capsule by mouth every day. Allergies Allergen Reactions ??? Penicillin And Derivatives O: The patient is a 28 yo man in no acute distress. Blood pressure 136/100, pulse 76, temperature 97.9 ??F (36.6 ??C), temperature source Oral, resp. rate 20. The proximal left ring finger has a circumferential erythematous rash with vesicles present. A: Allergic dermatitis - metal allergy. Elevated blood pressure needs follow up. P: Orders Placed This Encounter ??? Primary care consult ??? Triamcinolone acetonide 0.1 % ex chichia Giselle Wells MD documented in this encounter Plan of Treatment Scheduled Referrals Name Type Priority Associated Diagnoses Order S chedule PRIMARY CARE CONSULT Referral Routine Elevated Blood Press ure Ordered: 01/05/2009 Reading without Diagnosis of Hypertension documented as of this encounter Visit Diagnoses Diagnosis Allergic dermatitis - Primary Contact dermatitis and other eczema, due to unspecified cause Elevated blood pressure reading without diagnosis of hypertension documented in this encounter Care Teams Keeler Polygraph Operator Relationship Specialty Start Date End Date Unassigned, Provider PCP - General 12/06/07 10/21/[address] [place] [id number] documented as of this encounter
--- OUTSIDE RECORDS SUMMARY | 2022-04-13 11:08 | XMS_ITS | Encounter Summary ---
:1980 Author Organization [employer] Address [address] [place] [address] Care Team Providers Name Role Phone Unassigned, Provider Primary Care Provider Unavailable Encounter Details Date Type Department Care Team Description 10/24/2009 Office Visit [facility] Katheryn Shahid MD Anxiety Disorder NOS (Primary Dx); [address] [facility]. [address] [facility] Persistent Disorder of Initiating or Geeta ntaining Sleep [address]. [place], [place] [phone] Social History Tobacco Use Types Packs/Day Years Used Date Smoking Tobacco: Every Day Alcohol Use Standard Drinks/Week Comments Not Asked 0 (1 standard drink = 0.6 oz pure alcoho l) Sex Assigned at Date Recorded Not on file documented as of this encounter Progress Notes Katheryn Shahid - 10/24/2009 9:12 AM CST Benjamin Orosco 10/24/2009 Psychiatric Follow-Up Visit Last Visit Summary: Date: 05/08/2009 Summary: Decreased alcohol consumption and improvement in sleep Plan: Use trazodone p.r.n., refrain from drinking more than 10 alcoholic drinks per week, and followup in 6 months Subjective: Today the patient reports that he made this appointment last month because he was havingmore anxiety/panic attacks. He had adopted a dog but had to return him because he became so highly anxious but they work and be able to care for him properly. He states that he doesn't wish his anxietyto rule his life, and just doesn't feel he could have made a considered decision even if it was the right one in the long run. Since I last saw him he used the trazodone and slept better and has been able to cut back on his toes. He no longer lies in bed and worries that he won't fall asleep. Benjamin states that he does not have anxiety unrelated to situational stress, and currently is not experiencing anxiety. The patient denies excessive anxiety or panic attacks. He denies symptoms of depression: he is sleeping and eating well, his energy and motivation are normal and he denies sadness or thoughts of suicide. 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 His speech is of normal rate and loudness. He shows no movement or gait abnormalities. His form of thought is logical and goal-directed and thought content is without delusions, hallucinations or suicidal ideation. Insight, judgment and cognition are intact. Assessment: At baseline the patient does very well, but when stressed becomes highly anxious and this affects his decision-making and thinking. We discussed treatment options and came to the conclusionthat using COMPRESSION MOLDING MACHINE OPERATOR medication for anxiety would be preferable to a maintenance medication. Because of the concerns about mixing medication with alcohol, or becoming dependent on it especially given his alcohol use pattern in the past, I am recommending that he use gabapentin. Diagnosis: Cromwell I: Major Depressive Disorder, Recurrent, in Remission Anxiety Disorder NOS Alcohol Dependence, currently in remission Persistent Disorder of Initiating or Maintaining Sleep, in remission History of hypnagogic hallucinations Cromwell II: no diagnosis Cromwell III: esophageal reflux disease History of elevated blood pressure Plan: Outpatient ordered medications Medication Sig gabapentin (AKA NEURONTIN) 300 MG capsule one capsule three times daily as needed for anxiety; may increase to two capsules three times daily as needed Continue trazodone Follow-up visit: 3-4 months Visit Summary: 25 minutes with >50% of the time spent on educational counseling regarding the purpose of his medications and potential side effects, the risks of his medications and treatment options Date: 10/24/2009 Assessment: situational anxiety currently resolved, but with a low tolerance for stress, Plan: Continue trazodone, use gabapentin PRNs for anxiety Katheryn Shahid MD documented in this encounter Plan of Treatment Not on filedocumented as of this encounter Visit Diagnoses Diagnosis Anxiety Disorder NOS - Primary Anxiety state, unspecified Persistent disorder of initiating or geeta ntaining sleep documented in this encounter Care Teams Millinery Worker Relationship Specialty Start Date End Date Unassigned, Provider PCP - General 12/06/07 10/21/[address] [place] [address] documented as of this encounter
--- OUTSIDE RECORDS SUMMARY | 2022-04-13 11:08 | XMS_ITS | Encounter Summary ---
:1980 Author Organization [facility] Address [address] [place] [address] Care Team Providers Name Role Phone Suhas Lyon MD Primary Care Provider Encounter Details Date Type Department Care Team Description 08/06/1996 Orders Only Zack Puckett Social History Tobacco Use Types Packs/Day Years Used Date Smoking Tobacco: Never Assessed Sex Assigned at Date Recorded Not on file documented as of this encounter Plan of Treatment Not on filedocumented as of this encounter Visit Diagnoses Not on filedocumented in this encounter Care Teams Rotary Lithographic Press Operator Relationship Specialty Start Date End Date Suhas Lyon MD PCP - General 06/13/20 [address] [place] [address] documented as of this encounter
--- OUTSIDE RECORDS SUMMARY | 2022-04-13 11:08 | XMS_ITS | Encounter Summary ---
:1980 Author Organization [facility] Address [address] [place] [address] Care Team Providers Name Role Phone Unassigned, Provider Primary Care Provider Unavailable Reason for Referral Specialty Diagnoses / Procedures Referred By Contact Refer red To Contact Katheryn Shahid MD [address] [place] [address] Referral ID Status Reason Start Date Expiration Date Visits Requ ested Visits Authorized Scheduling Instructions Resources: [facility] and Drug Abuse Program for adults ([phone]) or [facility] Program for adolesce nts ([phone]). Encounter Details Date Type Department Care Team Description 04/08/2009 Office Visit [facility] Katheryn Shahid MD Persistent Disorder of Initiating or Geeta ntaining Sleep (Primary Dx); [address] [facility]. [address] [facility] Alcohol Abuse . [place], [place] [phone] Social History Tobacco Use Types Packs/Day Years Used Date Smoking Tobacco: Every Day Alcohol Use Standard Drinks/Week Comments Not Asked 0 (1 standard drink = 0.6 oz pure alcoho l) Sex Assigned at Date Recorded Not on file documented as of this encounter Progress Notes Katheryn Shahid - 04/08/2009 12:43 PM CDT Benjamin Orosco 04/08/2009 1980 Psychiatric Evaluation Identifying Data: The patient is a 28-year-old male self-referred for medication treatment of depression. History of Present Illness: The patient called for an appointment about 6 or 7 weeks ago at which time he had had a few days of low self-esteem and depression that spontaneously resolved with some positive events (a promotion at work and buying a new house). He does have a history of recurring periodsof anxiety and dysphoria related to self-esteem and low self-image issues. During those times he hasirrational thoughts. His , Jeanne, helps him a lot with his self-esteem. He does have a chronic problem of difficulty falling asleep it started in adolescence. He will startruminating, RF racing thoughts and he lays in bed for several hours before falling asleep. He currently drinks a fair amount of alcohol (see below) partly in an effort to sleep. The patient has a history of some sporadic anxiety attacks but no panic attacks. He denies any difficulty with weight or eating disorder. He specifically denies any periods of feeling revved up, being highly productive, or needing less sleep. He has a long distant history of thoughts of suicide one unhappy in his freshman year of college, but denies having those thoughts since. He denies any obsessive thoughts, compulsive behaviors, anger or history of abuse. Psychiatric Review of Symptoms: The only current symptom for him is his insomnia. His PHQ-9 score = 2. Past Psychiatric History: The patient has been diagnosed with major depression and treated with antidepressants on 2 occasions in the past. The 1st episode was in 1997 at which time he was very isolated in his freshman year at the [employer]. He saw Dr. Gunter [facility]-see medical record from September 1997. He was prescribed Zoloft 100 mg for a few months and did very well with that. He was also evaluated by Gildardo Teague in August 1997. He had noted at that time some hallucinations and paranoia as a teenager, however, on this interview it is apparent that these occurred only as he was falling asleep. Dr. 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 He was also drinking excessive alcohol at the time. Chemical Use History: The patient had his 1st drink of alcohol at the age of 16. He gradually has increased his intake such that he is drinking 2 glasses of whiskey every evening, each of which have several shots. He has no history of street drug use. He is Is hidden from his and so she has not been concerned about his drinking. He does think he should cut down and is concerned that he might be an alcoholic as both his parents are recovering alcoholics. He has some guilt about his drinking. He has had no withdrawal or need to drink in the morning. He has unsuccessfully tried to cut back. He denies any history of blackouts, withdrawal, and does not drive while drinking. Medical Review of Symptoms: He takes Prilosec for acid reflux. He smokes one quarter pack of cigarettes per day for the past 10 years. He drinks one bottle of caffeinated soda daily. Current Medications: Prior Encounter Medications Medication Sig Dispense Refill ??? OMEPRAZOLE (PRILOSEC) 10MG ORAL CAPS Take one capsule by mouth every day. Primary care physician: Provider Unassigned Past Medical History: Acknowledges a history of borderline high blood pressure. Last 5 Encounter BP Readings: Date BP 01/05/2009 136/100 05/17/2008 142/79 12/08/2007 130/86 11/21/2007 130/70 09/20/2007 161/80 Allergies: Penicillin and derivatives and Other (nickel) Family History: family history includes Alcohol/Drug Abuse in his father and mother. Social History: The patient grew up in [place] and raised by his parents. Hedenies any abuse or problems when growing up. He was an only child. He attended college his 1st yearat the [employer], and then transferred to [employer] majoring in theater. 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 He was recently to his , Jeanne, who works in customer service for the same company. Theyget along well and had just bought a house. Mental Status Exam: the patient is a neatly groomed young man whose affect was mildly anxious until discussing the subject of his alcohol use at which time he became tearful.His speech is of normal rate and loudness. He shows no movement or gait abnormalities. His form of thought is logical and goal-directed and thought content is without delusions, hallucinations or suicidal ideation. Insight, judgment and cognition are intact. Assessment: The patient has a long-standing history of insomnia, recurring depressions, and situational anxiety. He is currently self medicating his insomnia and anxiety with every alcohol use. He doesfeel he needs to address this, with the help of a sleeping aid. Diagnosis: Northridge I: Major Depressive Disorder, Recurrent, in Remission Alcohol Dependence Persistent Disorder of Initiating or Maintaining Sleep History of hypnagogic hallucinations Northridge II: no diagnosis Northridge III: esophageal reflux disease History of elevated blood pressure Northridge IV: recent marriage Northridge V: GAF = 50 Plan: Start Outpatient ordered medications Medication Sig trazodone (AKA DESYREL) 50 MG tablet one half to three tablets at bedtime Orders Placed This Encounter ??? Liver panel(hepatic function panel) ??? Hemogram/plts ??? Chemical dependency consult ??? Trazodone hcl 50 mg or tabs Follow-up visit: 4 weeks Visit Summary: psychiatric evaluation Date: 04/08/2009 Summary: Evaluated for insomnia, alcohol dependence Plan: Referred to [facility], start trazodone Katheryn Shahid MD documented in this encounter Plan of Treatment Scheduled Referrals Name Type Priority Associated Diagnoses Order S chedule CHEMICAL DEPENDENCY Referral Routine Ordered: 04/08/2009 CONSULT documented as of this encounter Visit Diagnoses Diagnosis Persistent disorder of initiating or geeta ntaining sleep - Primary Alcohol abuse Alcohol abuse, unspecified documented in this encounter Care Teams Cryogenics Repairer Relationship Specialty Start Date End Date Unassigned, Provider PCP - General 12/06/07 10/21/[address] [place] [id number] documented as of this encounter
--- OUTSIDE RECORDS SUMMARY | 2022-04-13 11:08 | XMS_ITS | Encounter Summary ---
:1980 Author Organization [facility] [facility] Address [address], [place] [address] Care Team Providers Name Role Phone Dwaine Holden MD Primary Care Provider Unavailable Encounter Details Date Type Department Care Team Description 09/26/1996 Office Visit [facility] Shazia Barry MD ACUTE URI NOS Medicine [address] [place] [address] Benedicto crawford [address] [address] [phone] Social History Tobacco Use Types Packs/Day Years Used Date Smoking Tobacco: Never Assessed Sex Assigned at Date Recorded Not on file documented as of this encounter Progress Notes Shazia Barry - 09/26/1996 12:00 AM CSTS: 15-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 He notes some mild SOB and wheezing. He denies any fevers or sore throat. He has had clear to yellow rhinorrhea. He had a cold in July, which he got over completely. He has had to miss 2 days of school during the past week or so. O: Afebrile. Normal vital signs. He is wearing a bright orange bowl cap. Ears are remarkable for moderate ceruminosis. Oropharynx is clear. There is no cervical lymphadenopathy. Lungs; clear. A: URI. P: Robitussin DM and Zithromax Z-pack. cc: documented in this encounter Plan of Treatment Not on filedocumented as of this encounter Visit Diagnoses Diagnosis Acute upper respiratory infections of un specified site documented in this encounter Care Teams Hydrogen Plant Operator Relationship Specialty Start Date End Date Dwaine Holden MD PCP - General 07/28/1996 12/05/07 [address] [place] [address] documented as of this encounter
--- OUTSIDE RECORDS SUMMARY | 2022-04-13 11:08 | XMS_ITS | Encounter Summary ---
:1980 Author Organization [facility] Address [address] [place] [address] Care Team Providers Name Role Phone Dwaine Holden MD Primary Care Provider Unavailable Encounter Details Date Type Department Care Team Description 12/20/1995 Office Visit [facility] Denny Yousif ph, [place] [address] [address] [facility] [place], [place] [address] Social History Tobacco Use Types Packs/Day Years Used Date Smoking Tobacco: Never Assessed Sex Assigned at Date Recorded Not on file documented as of this encounter Progress Notes Fabian Yousif MD - 12/20/1995 12:00 AM CDTS: This 15-yr-old has had pain in the right great toe for about a week and half. Comes in concerned about infected ingrown toenail. It may have drained some. O: The medial cuticle of the right great toe is inflamed and a bit fluctuant. A: Paronychia right great toe. P: Incision and drainage carried out successfully. Patient is allergic to Penicillin. After some discussion, he was put on Keflex 500 mg. qid for 5 days. Re-check prn. His mother was with him during the encounter and was not opposed to the trial of cephalosporin. cc: Fabian Yousif MD documented in this encounter Plan of Treatment Not on filedocumented as of this encounter Visit Diagnoses Diagnosis Onychia and paronychia of toe documented in this encounter Care Teams Electrician Helper Automotive Relationship Specialty Start Date End Date Dwaine Holden MD PCP - General 07/28/1996 12/05/07 [address] [place] [address] documented as of this encounter
--- OUTSIDE RECORDS SUMMARY | 2022-04-13 11:08 | XMS_ITS | Encounter Summary ---
:1980 Author Organization [facility] Address [address] [place] [address] Care Team Providers Name Role Phone Dwaine Holden MD Primary Care Provider Unavailable Encounter Details Date Type Department Care Team Description 12/26/1997 Office Visit [facility] [address] [address] Social History Tobacco Use Types Packs/Day Years Used Date Smoking Tobacco: Never Assessed Sex Assigned at Date Recorded Not on file documented as of this encounter Progress Notes Javi Gunter - 12/26/1997 12:00 AM CDTD: Benjamin is seen for treatment of his major depression episode with Zoloft. Benjamin is reporting essentially a complete remission of symptoms of depression. His sleep over the last few weeks is good and he is getting a good rest and feeling well-rested after 7-8 hours of sleep. 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 The main discussion at this point was how long should he stay on the medication and I suggested that, to be sure there might be the best chance of not having a relapse, he should stay on the medication between 9 and 12 months before tapering off. He did state that once he forgot the medication for five days in a row and did start feeling bad. P: I wrote a prescription for Zoloft, 100 mg., #60, 1 q.d. with 5 refills. cc: Javi Gunter - 12/26/1997 12:00 AM CDTPrescription for Zoloft, 100 mg., #60, 1 q.d. with 5 refills. cc: documented in this encounter Plan of Treatment Not on filedocumented as of this encounter Visit Diagnoses Diagnosis Major depressive disorder, single episod e documented in this encounter Care Teams Ux Consultant Relationship Specialty Start Date End Date Dwaine Holden MD PCP - General 07/28/1996 12/05/07 [address] [place] [address] documented as of this encounter
--- OUTSIDE RECORDS SUMMARY | 2022-04-13 11:08 | XMS_ITS | Encounter Summary ---
:1980 Author Organization [facility] Address [address] [place] [address] Care Team Providers Name Role Phone Dwaine Holden MD Primary Care Provider Unavailable Encounter Details Date Type Department Care Team Description 10/09/1997 Office Visit [facility] Optometr y Juan M Alonso, OD HYPERMETROPIA; [address] [place] [facility] [address] ASTIGMATISM NOS; [place], [place] [address] [place], [place] ESOTROPIA NOS; [phone] [address] [facility] Social History Tobacco Use Types Packs/Day Years Used Date Smoking Tobacco: Never Assessed Sex Assigned at Date Recorded Not on file documented as of this encounter Plan of Treatment Not on filedocumented as of this encounter Visit Diagnoses Diagnosis Hypermetropia Astigmatism, unspecified Esotropia, unspecified Examination of eyes and vision documented in this encounter Care Teams Acid Filler Relationship Specialty Start Date End Date Dwaine Holden MD PCP - General 07/28/1996 12/05/07 [address] [place] [address] documented as of this encounter
--- OUTSIDE RECORDS SUMMARY | 2022-04-13 11:08 | XMS_ITS | Encounter Summary ---
:1980 Author Organization [facility] Address [address] [place] [address] Care Team Providers Name Role Phone Suhas Lyon MD Primary Care Provider Encounter Details Date Type Department Care Team Description 09/25/1997 Orders Only Javi Gunter Social History Tobacco Use Types Packs/Day Years Used Date Smoking Tobacco: Never Assessed Sex Assigned at Date Recorded Not on file documented as of this encounter Plan of Treatment Not on filedocumented as of this encounter Visit Diagnoses Not on filedocumented in this encounter Care Teams Restrike Hammer Operator Relationship Specialty Start Date End Date Suhas Lyon MD PCP - General 06/13/20 [address] [place] [address] documented as of this encounter
--- OUTSIDE RECORDS SUMMARY | 2022-04-13 11:08 | XMS_ITS | Encounter Summary ---
:1980 Author Organization [facility] Address [address] [place] [address] Care Team Providers Name Role Phone Dwaine Holden MD Primary Care Provider Unavailable Encounter Details Date Type Department Care Team Description 09/24/1997 Office Visit Khurram Gunter [facility], SING[facility] EPISOD [address] [address] Social History Tobacco Use Types Packs/Day Years Used Date Smoking Tobacco: Never Assessed Sex Assigned at Date Recorded Not on file documented as of this encounter Progress Notes Javi Gunter - 09/24/1997 12:00 AM CSTCHIEF COMPLAINT: Benjamin is self referred initially for evaluation and treatment of his depression due to his highly stressful first year at college. Today I am seeing him quite specifically for evaluation for treatment with medication. HISTORY: Benjamin comes from a family with a very positive history of depression. Benjamin is experiencing what appears to be his first major depressive episode. Please see intake for details of recent and past history. Dg, who has been highly active and highly successful through high school, has had significant problems his first year at the . He ended up rooming alone and has been quite isolated. He no longer is involved in a number of his favorite activities such as playing in his band and performing. He has become increasingly depressed and isolated to the point that he referred himself in here for treatment. MENTAL STATUS: Benjamin was cooperative to interview. He was well oriented. He reports a depressed mood much of the time with occasional mood swings. He has a diminished interest in pleasurable activities but did perform with his band last weekend and was able to enjoy this very much. Other than that, he does very little. His weight is stable. He sleeps either too little or too much and never feels well rested. He seems a little bit slowed down, although not dramatically. He has low energy every day. He is feeling somewhat down on himself for not having a clear direction to go in his life at the present time. He did have one night where he had some suicidal thinking, but he did talk to his mother about that, and this has not recurred. There was no sign of any thinking disorder or psychosis. ASSESSMENT: Benjamin fairly clearly describes a major depressive episode and medication treatment seems clearly indicated. Although he currently has no suicidality, the fact that he did have if even only one night, is suggesting that this is a very significant and serious depressive episode which must be dealt with, with a full medication approach. TREATMENT PLAN: I wrote a prescription for Zoloft, 100 mg #30, one half q pm for one week, then one q pm with two refills and return for medication check in a month. cc: Javi Gunter - 09/24/1997 12:00 AM CSTZoloft, 100 mg #30, one half q pm for one week, then one q pm with two refills. cc: documented in this encounter Plan of Treatment Not on filedocumented as of this encounter Visit Diagnoses Diagnosis Major depressive disorder, single episod e documented in this encounter Care Teams Patent Prosecution Attorney Relationship Specialty Start Date End Date Dwaine Holden MD PCP - General 07/28/1996 12/05/07 [address] [place] [address] documented as of this encounter
--- OUTSIDE RECORDS SUMMARY | 2022-04-13 11:08 | XMS_ITS | Encounter Summary ---
:1980 Author Organization [facility] Address [address] [place] [address] Care Team Providers Name Role Phone Dwaine Holden MD Primary Care Provider Unavailable Reason for Visit Reason Onset Date Comments HEARTBEAT,FAST 11/21/2007 TIGHTNESS, CHEST 11/21/2007 Encounter Details Date Type Department Care Team Description 11/21/2007 Telephone Careline Essence Mauro, HEARTBEAT,FAST; [address] RN TIGHTNESS, CHEST [place], [place] [address] [phone] [place], [place] [address] Social History Tobacco Use Types Packs/Day Years Used Date Smoking Tobacco: Every Day Alcohol Use Standard Drinks/Week Comments Not Asked 0 (1 standard drink = 0.6 oz pure alcoho l) Sex Assigned at Date Recorded Not on file documented as of this encounter Nursing Notes Essence Mauro - 11/21/2007 11:27 AM CDT TRIAGE REFERENCE: PULSE - FAST/SLOW - ADULT CNG (c) 2007 CONCERN: Feels like heart is racing or pounding. Slight chest tightness he stated but no pain he stated. Sx continue today. Pt not taking much caffeine in. STAT SYMPTOMS: no previous diagnosis of tachy or joyce arrhythmia. ASSESSMENT: Pulse rate (not sure difficult to find pulse ) Duration: (on and off for a few weeks) Associated sx: chest pain (see CP g/l) History of problem: none Does the patient have an ICD (implantable cardioverter-defibrillator)?No Family hx heart problems PMH: There is no problem list on file for this patient. Current medications Current outpatient prescriptions Medication Sig ??? OMEPRAZOLE (PRILOSEC) 10MG ORAL CAPS Take one capsule by mouth every day. Medication allergies: Allergies Allergen Reactions ??? Penicillin And Derivatives HOME TREATMENT: not discussed PLAN: Er For check of sx, Advised 911 and chew and swallow an asa. Offered [facility] as it is near [facility] and pt had called to go to [facility]. Pt is in [place]. Offered [facility] Er as well and he will go to [facility] as he knows where that is. documented in this encounter Plan of Treatment Not on filedocumented as of this encounter Visit Diagnoses Not on filedocumented in this encounter Care Teams Mold Dumper Relationship Specialty Start Date End Date Dwaine Holden MD PCP - General 07/28/1996 12/05/07 [address] [place] [address] documented as of this encounter
--- OUTSIDE RECORDS SUMMARY | 2022-04-13 11:08 | XMS_ITS | Encounter Summary ---
:1980 Author Organization [facility] Address [address] [place] [address] Care Team Providers Name Role Phone Unassigned, Provider Primary Care Provider Unavailable Reason for Visit Reason Comments COLD, NOS INFECTION, EAR Encounter Details Date Type Department Care Team Description 05/17/2008 Office Visit [facility] Stacy Sierra, Otitis Media-right Practice (Primary Dx) [address] [place], [place] [address] Social History Tobacco Use Types Packs/Day Years Used Date Smoking Tobacco: Every Day Alcohol Use Standard Drinks/Week Comments Not Asked 0 (1 standard drink = 0.6 oz pure alcoho l) Sex Assigned at Date Recorded Not on file documented as of this encounter Last Filed Vital Signs Vital Sign Reading Time Taken Comments Blood Pressure 142/79 05/17/2008 1:48 PM CDT Pulse 92 05/17/2008 1:48 PM CDT Temperature 36.7 ??C (98 ??F) 05/17/2008 1:48 PM CDT Respiratory Rate 18 05/17/2008 1:48 PM CDT Oxygen Saturation - - Inhaled Oxygen Concentration - - Weight 118.4 kg (261 lb) 05/17/2008 1:48 PM CDT Height 177.8 cm (5' 10) 05/17/2008 1:48 PM CDT Body Mass Index 37.45 05/17/2008 1:48 PM CDT documented in this encounter Progress Notes Stacy Sierra - 05/17/2008 2:08 PM CDT SUBJECTIVE: Benjamin Orosco is a 27 yr old male presents with URI symptoms since yesterday morning right ear pain jaw throbbing sore throat myalgias cough - productive yellow/green sinus congestion sneezing itchy eyes, throat scratchy no fever no N/V/D exposed to co-workers No adult hx of ear infection SH: smoker 1/2 ppd Allergies Allergen Reactions ??? Penicillin And Derivatives OBJECTIVE: BP 142/79 Pulse 92 Temp (Src) 98 ??F (36.7 ??C) (Oral) Resp 18 Ht 5' 10 (1.778 m) Wt 261 lb (118.389 kg) General appearance: in no distress Eyes: PERRL, EOMI, conjunctiva clear Ears: TM'(s) - right - erythematous and dull, left TM clear with serous fluid, scarring noted Nose: clear rhinorrhea, mucosal erythema and mucosal edema Oropharynx: normal. Lips, teeth and gums are normal. Neck: supple and no adenopathy Lungs: CTAB, no wheezing or rhonchi. Not using accessory muscles of respiration Heart: RRR, no murmur ASSESSMENT: /PLAN: Encounter Diagnoses Code Name Primary? Qualifier ??? 382.9C Otitis Media-right Yes Plan: ZITHROMAX Z-ELBA 250 MG OR TABS tx ear infection with z-pack otherwise symptomatic care for other symptoms - Symptomatic tx: Increase fluids, decongestant, tylenol (325mg) 2 tabs every 4-6 hrs as needed or ibuprofen (200mg) 2-3 tabs every 6-8 hrs as needed for pain or fever. Gargle with salt water 3X/day, throat lozenges prn, f/u if no improvement or worsening symptoms. documented in this encounter Nursing Notes 05/17/2008 1:40 PM CDT >> DAYNE X REGIS Anita May 17, 2008 1:51 PM Pt was informed today all RHM requieded need in the quick questions, pt declined flu shot today.NimoE.canceling and cutting control clerk documented in this encounter Plan of Treatment Not on filedocumented as of this encounter Visit Diagnoses Diagnosis Otitis Media-right - Primary Unspecified otitis media documented in this encounter Care Teams Day Care Director Relationship Specialty Start Date End Date Unassigned, Provider PCP - General 12/06/07 10/21/[address] [place] [address] documented as of this encounter
--- OUTSIDE RECORDS SUMMARY | 2022-04-13 11:08 | XMS_ITS | Encounter Summary ---
:1980 Author Organization [facility] Address [address] [place] [address] Care Team Providers Name Role Phone Dwaine Holden MD Primary Care Provider Unavailable Encounter Details Date Type Department Care Team Description 11/21/2007 Correspondence Emergency Dept Saranya Scott D/C PATIENT [address] [facility]. K, PRODUCTION SUPERINTENDENT, VICE ADMIRAL ACKNOWLEDGEMENT [place], [place] [address] [facility] [address] [place], [place] [phone] [address] Social History Tobacco Use Types Packs/Day Years Used Date Smoking Tobacco: Every Day Alcohol Use Standard Drinks/Week Comments Not Asked 0 (1 standard drink = 0.6 oz pure alcoho l) Sex Assigned at Date Recorded Not on file documented as of this encounter Progress Notes Saranya Potts - 11/21/2007 12:00 AM CDT documented in this encounter Plan of Treatment Not on filedocumented as of this encounter Visit Diagnoses Not on filedocumented in this encounter Care Teams Director Patient Financial Services Relationship Specialty Start Date End Date Dwaine Holden MD PCP - General 07/28/1996 12/05/07 [address] [place] [address] documented as of this encounter
--- OUTSIDE RECORDS SUMMARY | 2022-04-13 11:08 | XMS_ITS | Encounter Summary ---
:1980 Author Organization [facility] Address [address], [place] [address] Care Team Providers Name Role Phone Dwaine Holden MD Primary Care Provider Unavailable Encounter Details Date Type Department Care Team Description 06/22/1997 Office Visit Rivas Clarke DEPRE SSIVE REACT; OTHER PSYCHOLOG ICAL STRESS Social History Tobacco Use Types Packs/Day Years Used Date Smoking Tobacco: Never Assessed Sex Assigned at Date Recorded Not on file documented as of this encounter Progress Notes Rivas Palma - 06/22/1997 12:00 AM CSTPRESENTING PROBLEM: Benjamin is self- referred, although I suspect his parents were as concerned as he about depressive symptoms. 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 He has a single room in the dorm and hasn't met anyone on campus socially. He's feeling quite depressed, occasionally is tearful. He's very unsure about whether he made the right decision about what school to attend. His mother had come for treatment here and it was helpful so she recommended that he come also. He's not entirely sure what we can do for him. REVIEW OF PROBLEM(S): Benjamin appears age 16. He's a freshman at the [employer] interested in [employer]. He lives in the dorm, but part of the time also lives in his [place] home with his two parents. Benjamin is an only child. His mother, Ailyn, was with him in the waiting room. 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 When questioned generally about whether or not these depressive symptoms ever bothered him in the past, Benjamin indicated that they have not particularly. The thing that's striking about his depression is that it's hanging on longer than any other down mood he's ever had, so obviously there is some concern. 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 The band has been fairly successful. He's quite upset that the band has broken up now because some of the members are at different colleges and so they haven't been able to perform this year. They are determined, however, at some point to get back together again because they enjoy the touring season. Benjamin plays the trombone and sings. Benjamin has a girlfriend, Alessia, who is in school in [place] so they are . She will becoming for this weekend. They stay in touch by E-Mail and phone. Dg believes that the problems in his dorm is that he was very late in arriving there and everybody had somewhat buddied up by the time he came. His late arrival had to do with his work schedule. He understands that central to his problem is that since he had such a good year last year socially and was so involved in school activities and with his friends and this year things have ground down to a halt. He's had very brief social experiences in the last six weeks. That is, a friend of his from [employer] [facility] [employer] and is in a dorm close to his. They did spend some time together at a republican over [facility] and that was his first major social outing. He, however, didn't meet anyone that he felt compatible with. Benjamin does not seem to know where the theater arts student might hang out the University so we spent some time talking about how he could correct that situation. One idea that emerged was that he contact his drama college coach from high school. She may have some contacts with the [employer] and might be able to make sone interactions. That may not be a for sure thing, but something that Benjamin could do. Additionally, we talked about his getting in touch with counseling services at the [employer] who may deal with this kind of issue frequently. They also would have a better idea of how to help freshman make some of these social adjustments. In general, Benjamin is questioning whether he made the right decision going to the University. He may be better off in another school, but finances are a problem. He named off a couple of schools, one on each coast that specialize in theater arts that he'd really like to attend. If he decides to stay at the . he will probably do so for only the next year just to get his credits organized. He's doing fairly well academically, explaining that he tests well. The issues is certainly one of social adjustment. He is reluctant, I think, in terms of medication, but if he stays at the [place] for the winter, I think that should seriously be considered. MENTAL STATUS: Benjamin appears as an 16-year-old white male, tall, heavily built and dressed casually, but stylishly for the session. When talking about his success in high school there was good eye contact. However, when talking about the problems at the University, the eye contact disappeared and he became very introspective. His affect also seems flatter when talking about problems. He was pleasant and generally fairly responsive in the session. He did not appear to have any major cognitive distortions and his presentation was quite apparent and his affect seemed appropriate to the content. TREATMENT PLAN: We agreed to meet again in 2 to 3 weeks. In the interim, I think it was important for Benjamin to follow-up on the two ideas that were suggested in the session, that is seeing the University's counseling service and also getting back in touch with his former drama college coach. If those two things are going to be of immediate assistance then I think we need to talk a little further about the possibility of using some medication to assist with these depressive symptoms. I briefly talked with Ailyn Orosco at the end of the session individually. She does have concerns about her sons, but she also has alf hope that he will get through this rough period and do well. She agrees that he had an extremely good senior year and that what's happening now is pretty much a downer for Benjamin. She has some fears about just how depressed he might get. Actually Benjamin denies that he's suicidal, although he's had thoughts in that direction occasionally. cc: Rivas Palma, [facility] documented in this encounter Plan of Treatment Not on filedocumented as of this encounter Visit Diagnoses Diagnosis Adjustment disorder with depressed mood ([facility]) Adjustment disorder with depressed mood Other psychological stress Other psychological or physical stress, not elsewhere classified documented in this encounter Care Teams Tank Wagon Operator Relationship Specialty Start Date End Date Dwaine Holden MD PCP - General 07/28/1996 12/05/07 [address] [place] [address] documented as of this encounter
--- OUTSIDE RECORDS SUMMARY | 2022-04-13 11:08 | XMS_ITS | Encounter Summary ---
:1980 Author Organization [facility] Address [address], [place] [address] Care Team Providers Name Role Phone Dwaine Holden MD Primary Care Provider Unavailable Encounter Details Date Type Department Care Team Description 10/23/1997 Office Visit Makenna Carson Social History Tobacco Use Types Packs/Day Years Used Date Smoking Tobacco: Never Assessed Sex Assigned at Date Recorded Not on file documented as of this encounter Progress Notes Makenna Carson - 10/23/1997 12:00 AM CSTNO SHOW cc: TH PROFESSIONAL documented in this encounter Plan of Treatment Not on filedocumented as of this encounter Visit Diagnoses Not on filedocumented in this encounter Care Teams Balance Assembler Relationship Specialty Start Date End Date Dwaine Holden MD PCP - General 07/28/1996 12/05/07 [address] [place] [address] documented as of this encounter
--- OUTSIDE RECORDS SUMMARY | 2022-04-13 11:08 | XMS_ITS | Encounter Summary ---
:1980 Author Organization [facility] Address [address] [place] [address] Care Team Providers Name Role Phone Dwaine Holden MD Primary Care Provider Unavailable Encounter Details Date Type Department Care Team Description 07/11/2003 Correspondence None Unknown, Physici an CONSENT FOR [place]/AOB [address] [place] [address] (Wo rk) Social History Tobacco Use Types Packs/Day Years Used Date Smoking Tobacco: Never Assessed Sex Assigned at Date Recorded Not on file documented as of this encounter Progress Notes Unknown, Physician - 07/11/2003 12:00 AM MEDICAL AUTHORIZATION SPECIALIST documented in this encounter Plan of Treatment Not on filedocumented as of this encounter Visit Diagnoses Not on filedocumented in this encounter Care Teams Vice President Industrial Relations Relationship Specialty Start Date End Date Dwaine Holden MD PCP - General 07/28/1996 12/05/07 [address] [place] [address] documented as of this encounter
--- OUTSIDE RECORDS SUMMARY | 2022-04-13 11:08 | XMS_ITS | Encounter Summary ---
:1980 Author Organization [facility] Address [address] [place] [address] Care Team Providers Name Role Phone Unassigned, Provider Primary Care Provider Unavailable Reason for Visit Reason Onset Date Comments ALLERGIC REACTION 01/05/2009 Encounter Details Date Type Department Care Team Description 01/05/2009 Telephone Careline Essence Mauro, ALLERGIC REACTION [address] [place], [place] [address] [phone] [place], [place] [address] Social History Tobacco Use Types Packs/Day Years Used Date Smoking Tobacco: Every Day Alcohol Use Standard Drinks/Week Comments Not Asked 0 (1 standard drink = 0.6 oz pure alcoho l) Sex Assigned at Date Recorded Not on file documented as of this encounter Nursing Notes Essence Mauro - 01/05/2009 11:55 AM CDT a week ago and thought had a tunsten ring but had alloid nickel in it. Much be allergic to nickel as had reaction to belt buckle with nickel in it in the past. Itch and burn and took ring off Wed. Not getting better. Still blistered and red and irritated and pus to area. Using [facility] bacitracin oint. Red area to top half left ring finger. NO fever or streaking. Looking for OTc med to carloz sx. Sated if using antibiotic cream already, should have it check if sx not clearing. Not getting better since Wed with home treatment. Advised pt to be seen to check sx at [facility] or [facility]. documented in this encounter Plan of Treatment Not on filedocumented as of this encounter Visit Diagnoses Not on filedocumented in this encounter Care Teams Jigman Relationship Specialty Start Date End Date Unassigned, Provider PCP - General 12/06/07 10/21/[address] [place] [address] documented as of this encounter
--- OUTSIDE RECORDS SUMMARY | 2022-04-13 11:08 | XMS_ITS | Encounter Summary ---
:1980 Author Organization [facility] Address [address] [place] [address] Care Team Providers Name Role Phone Suhas Lyon MD Primary Care Provider Encounter Details Date Type Department Care Team Description 01/08/1998 Orders Only Javi Gunter Social History Tobacco Use Types Packs/Day Years Used Date Smoking Tobacco: Never Assessed Sex Assigned at Date Recorded Not on file documented as of this encounter Plan of Treatment Not on filedocumented as of this encounter Visit Diagnoses Not on filedocumented in this encounter Care Teams Manager Of Selection And Assessment Relationship Specialty Start Date End Date Suhas Lyon MD PCP - General 06/13/20 [address] [place] [address] documented as of this encounter
--- OUTSIDE RECORDS SUMMARY | 2022-04-13 11:09 | XMS_ITS | Encounter Summary ---
:1980 Author Organization [facility] Address [address], [place] [address] Care Team Providers Name Role Phone Suhas Lyon MD Primary Care Provider Encounter Details Date Type Department Care Team Description 04/27/1995 Orders Only Alton Brady MD [address] [address] Social History Tobacco Use Types Packs/Day Years Used Date Smoking Tobacco: Never Assessed Sex Assigned at Date Recorded Not on file documented as of this encounter Plan of Treatment Not on filedocumented as of this encounter Visit Diagnoses Not on filedocumented in this encounter Care Teams Grand Scribe Relationship Specialty Start Date End Date Suhas Lyon MD PCP - General 06/13/20 [address] [place] [address] documented as of this encounter
--- OUTSIDE RECORDS SUMMARY | 2022-04-13 11:09 | XMS_ITS | Encounter Summary ---
:1980 Author Organization [facility] Address [address], [place] [address] Care Team Providers Name Role Phone Dwaine Holden MD Primary Care Provider Unavailable Encounter Details Date Type Department Care Team Description 04/08/1995 Office Visit Alton Brady MD Esotropia, unspecified [address] [address] Social History Tobacco Use Types Packs/Day Years Used Date Smoking Tobacco: Never Assessed Sex Assigned at Date Recorded Not on file documented as of this encounter Plan of Treatment Not on filedocumented as of this encounter Visit Diagnoses Diagnosis Esotropia, unspecified documented in this encounter Care Teams Public Health Doctor Relationship Specialty Start Date End Date Dwaine Holden MD PCP - General 07/28/1996 12/05/07 [address] [place] [address] documented as of this encounter
--- OUTSIDE RECORDS SUMMARY | 2022-04-13 11:09 | XMS_ITS | Encounter Summary ---
:1980 Author Organization [facility] Address [address], [place] [address] Care Team Providers Name Role Phone Dwaine Holden MD Primary Care Provider Unavailable Encounter Details Date Type Department Care Team Description 05/13/1995 Office Visit Alton Brady MD Unspecified disorder of [address] [place] eye m ovements [address] [place] [address] Social History Tobacco Use Types Packs/Day Years Used Date Smoking Tobacco: Never Assessed Sex Assigned at Date Recorded Not on file documented as of this encounter Plan of Treatment Not on filedocumented as of this encounter Visit Diagnoses Diagnosis Unspecified disorder of eye movements documented in this encounter Care Teams Capital Project Engineer Relationship Specialty Start Date End Date Dwaine Holden MD PCP - General 07/28/1996 12/05/07 [address] [place] [address] documented as of this encounter
--- OUTSIDE RECORDS SUMMARY | 2022-04-13 11:09 | XMS_ITS | Encounter Summary ---
:1980 Author Organization [facility] Address [address], [place] [address] Care Team Providers Name Role Phone Dwaine Holden MD Primary Care Provider Unavailable Encounter Details Date Type Department Care Team Description 09/08/1994 Office Visit Alton Brady MD Esotropia, unspecified [address] [address] Social History Tobacco Use Types Packs/Day Years Used Date Smoking Tobacco: Never Assessed Sex Assigned at Date Recorded Not on file documented as of this encounter Plan of Treatment Not on filedocumented as of this encounter Visit Diagnoses Diagnosis Esotropia, unspecified documented in this encounter Care Teams Car Whacker Relationship Specialty Start Date End Date Dwaine Holden MD PCP - General 07/28/1996 12/05/07 [address] [place] [address] documented as of this encounter
--- OUTSIDE RECORDS SUMMARY | 2022-04-13 11:09 | XMS_ITS | Encounter Summary ---
:1980 Author Organization [facility] Address [address], [place] [address] Care Team Providers Name Role Phone Dwaine Holden MD Primary Care Provider Unavailable Encounter Details Date Type Department Care Team Description 02/25/1995 Office Visit [facility] Krystian Valdivia Injur y, other and Ori Frank MD unspecified, [facility] [address] [facility], [place] [address] [address] [facility] [address] Social History Tobacco Use Types Packs/Day Years Used Date Smoking Tobacco: Never Assessed Sex Assigned at Date Recorded Not on file documented as of this encounter Plan of Treatment Not on filedocumented as of this encounter Visit Diagnoses Diagnosis Injury, other and unspecified, elbow, fo rearm, and wrist documented in this encounter Care Teams Quality Director Relationship Specialty Start Date End Date Dwaine Holden MD PCP - General 07/28/1996 12/05/07 [address] [place] [address] documented as of this encounter
--- OUTSIDE RECORDS SUMMARY | 2022-04-13 11:09 | XMS_ITS | Encounter Summary ---
:1980 Author Organization [facility] Address [address] [address] Care Team Providers Name Role Phone Dwaine Holden MD Primary Care Provider Unavailable Encounter Details Date Type Department Care Team Description 04/06/1995 Office Visit Fredo Ag M D Esotropia, unspecified Pediatrics [address] [facility] [id number] [facility] [place], [address] [place] [address] Social History Tobacco Use Types Packs/Day Years Used Date Smoking Tobacco: Never Assessed Sex Assigned at Date Recorded Not on file documented as of this encounter Plan of Treatment Not on filedocumented as of this encounter Visit Diagnoses Diagnosis Esotropia, unspecified documented in this encounter Care Teams Business Rules Developer Relationship Specialty Start Date End Date Dwaine Holden MD PCP - General 07/28/1996 12/05/07 [address] [place] [address] documented as of this encounter
--- OUTSIDE RECORDS SUMMARY | 2022-04-13 11:09 | XMS_ITS | Encounter Summary ---
:1980 Author Organization [facility] Address [address] [place] [address] Care Team Providers Name Role Phone Dwaine Holden MD Primary Care Provider Unavailable Encounter Details Date Type Department Care Team Description 07/19/1995 Office Visit [facility] M D Bronchitis, not Pediatrics [address] specified as acute or [address] [address]P chronic [facility] [place], [address] [place] [address] Social History Tobacco Use Types Packs/Day Years Used Date Smoking Tobacco: Never Assessed Sex Assigned at Date Recorded Not on file documented as of this encounter Progress Notes Fredo Valdes MD - 07/19/1995 12:00 AM CSTS: Uvaldo is a 14 year old who has had a three day history of severe cough associated with fever. has coughed up some phlegm, has felt weak, has some stomachache, some difficulty with breathing in with chest pain. He has been around some other kids at school who have been sick but no specific diagnosis was known. O: He does not look sick. He does cough when he takes a deep breath in but his breath sounds were actually pretty good except in his right mid to lower base where he had some rhonchi and rales. His temperature was normal. His throat was normal. TM's were normal. A: With the constellation of chest discomfort, blood in the sputum and fever with some questionable lung findings, we will go ahead and treat him for mycoplasma which would be the most likely cause or possibly even pneumococcus. P: Azithromycin 500 mg X 1 and then 250 mg q.d. for 4 days. Push fluids. Recheck later in the week if not improving. cc: NED GLASS GLAZIER documented in this encounter Plan of Treatment Not on filedocumented as of this encounter Visit Diagnoses Diagnosis Bronchitis, not specified as acute or ch ronic documented in this encounter Care Teams Diesel Inspector Relationship Specialty Start Date End Date Dwaine Holden MD PCP - General 07/28/1996 12/05/07 [address] [place] [address] documented as of this encounter
--- OUTSIDE RECORDS SUMMARY | 2022-04-13 11:09 | XMS_ITS | Encounter Summary ---
:1980 Author Organization [facility] Address [address], [place] [address] Care Team Providers Name Role Phone Dwaine Holden MD Primary Care Provider Unavailable Encounter Details Date Type Department Care Team Description 08/24/1994 Office Visit [facility] Optometry Miguelito Conklin MD Esotr opia, unspecified Social History Tobacco Use Types Packs/Day Years Used Date Smoking Tobacco: Never Assessed Sex Assigned at Date Recorded Not on file documented as of this encounter Plan of Treatment Not on filedocumented as of this encounter Visit Diagnoses Diagnosis Esotropia, unspecified documented in this encounter Care Teams Nurse Practitioner Hospitalist Relationship Specialty Start Date End Date Dwaine Holden MD PCP - General 07/28/1996 12/05/07 [address] [place] [address] documented as of this encounter
--- OUTSIDE RECORDS SUMMARY | 2022-04-13 11:09 | XMS_ITS | Encounter Summary ---
:1980 Author Organization [facility] Address [address], [place] [address] Care Team Providers Name Role Phone Suhas Lyon MD Primary Care Provider Encounter Details Date Type Department Care Team Description 07/19/1995 Orders Only Fredo Valdes M D [address] [place] [address] [id number] [place] [address] Social History Tobacco Use Types Packs/Day Years Used Date Smoking Tobacco: Never Assessed Sex Assigned at Date Recorded Not on file documented as of this encounter Plan of Treatment Not on filedocumented as of this encounter Visit Diagnoses Not on filedocumented in this encounter Care Teams Mail Delivery Supervisor Relationship Specialty Start Date End Date Suhas Lyon MD PCP - General 06/13/20 [address] [place] [address] documented as of this encounter
--- OUTSIDE RECORDS SUMMARY | 2022-04-13 11:09 | XMS_ITS | Encounter Summary ---
:1980 Author Organization [facility] Address [address], [place] [address] Care Team Providers Name Role Phone Dwaine Holden MD Primary Care Provider Unavailable Encounter Details Date Type Department Care Team Description 11/09/1994 Office Visit [facility] Chondromal acia of Pediatrics patella 1430 [facility] [address] 14[address] [facility] [address] [place], [place] [address] [address] [place] [address] Social History Tobacco Use Types Packs/Day Years Used Date Smoking Tobacco: Never Assessed Sex Assigned at Date Recorded Not on file documented as of this encounter Progress Notes Fredo Valdes MD - 11/09/1994 12:00 AM CSTS: Uvaldo is a 13 y/o boy who has had bilateral knee pain for the last several weeks. He just started back into track and is now doing 1-2 mile distances. He has had no known injury. The knees do not swell up, do not lock in place or give way. He has had no problems with his knees before and there is no family history. O: Does not have any atrophy or swelling of his knees. Joint lines are nontender. He points to pain in and around his knee cap itself. He has a mild crepitus of his knee on flexion and extension. He has full range of motion, negative Ed's test. Lateral collateral ligaments are intact. He does have some muscle weakness of the vastus medialis muscle and the tracking of his knee cap is somewhat lateral. A: Typical PFA. P: Discussed the diagnosis, treatment, including exercises, neoprene sleeve, ice, ibuprofen. Discussed worrisome symptoms to return for and if not helped by the exercises and the neoprene sleeve should return to clinic. cc: MS ADJUSTOR documented in this encounter Plan of Treatment Not on filedocumented as of this encounter Visit Diagnoses Diagnosis Chondromalacia of patella documented in this encounter Care Teams Technical Support Representative Relationship Specialty Start Date End Date Dwaine Holden MD PCP - General 07/28/1996 12/05/07 [address] [place] [address] documented as of this encounter
--- OUTSIDE RECORDS SUMMARY | 2022-04-13 11:09 | XMS_ITS | Encounter Summary ---
:1980 Author Organization [facility] Address [address], [place] [address] Care Team Providers Name Role Phone Dwaine Holden MD Primary Care Provider Unavailable Encounter Details Date Type Department Care Team Description 08/08/1994 Office Visit [facility] Streptococcal sore Ori [facility] throat [address] [place] [address] 00 [place], [place] [address] Social History Tobacco Use Types Packs/Day Years Used Date Smoking Tobacco: Never Assessed Sex Assigned at Date Recorded Not on file documented as of this encounter Plan of Treatment Not on filedocumented as of this encounter Visit Diagnoses Diagnosis Streptococcal sore throat documented in this encounter Care Teams Recreation Adviser Relationship Specialty Start Date End Date Dwaine Holden MD PCP - General 07/28/1996 12/05/07 [address] [place] [address] documented as of this encounter
--- OUTSIDE RECORDS SUMMARY | 2022-04-13 11:09 | XMS_ITS | Encounter Summary ---
:1980 Author Organization [facility] Address [address] [address] Care Team Providers Name Role Phone Dwaine Holden MD Primary Care Provider Unavailable Encounter Details Date Type Department Care Team Description 04/27/1995 Office Visit Alton Brady MD Amblyopia, unspecified [address] [address] Social History Tobacco Use Types Packs/Day Years Used Date Smoking Tobacco: Never Assessed Sex Assigned at Date Recorded Not on file documented as of this encounter Plan of Treatment Not on filedocumented as of this encounter Visit Diagnoses Diagnosis Amblyopia, unspecified documented in this encounter Care Teams Cell Tender Helper Relationship Specialty Start Date End Date Dwaine Holden MD PCP - General 07/28/1996 12/05/07 [address] [place] [address] documented as of this encounter
--- OUTSIDE RECORDS SUMMARY | 2022-04-13 11:09 | XMS_ITS | Encounter Summary ---
:1980 Author Organization [facility] Address [address] [address] Care Team Providers Name Role Phone Dwaine Holden MD Primary Care Provider Unavailable Encounter Details Date Type Department Care Team Description 04/07/1995 Outpatient Alton Brady MD [address] [address] Social History Tobacco Use Types Packs/Day Years Used Date Smoking Tobacco: Never Assessed Sex Assigned at Date Recorded Not on file documented as of this encounter Plan of Treatment Not on filedocumented as of this encounter Visit Diagnoses Diagnosis Esotropia, unspecified documented in this encounter Care Teams Newsperson Relationship Specialty Start Date End Date Dwaine Holden MD PCP - General 07/28/1996 12/05/07 [address] [place] [address] documented as of this encounter
--- OUTSIDE RECORDS SUMMARY | 2022-04-13 11:09 | XMS_ITS | Encounter Summary ---
:1980 Author Organization [facility] Address [address] [address] Care Team Providers Name Role Phone Suhas Lyon MD Primary Care Provider Encounter Details Date Type Department Care Team Description 02/25/1995 Orders Only Pancho Bernard MD WBL/UC [address], [place] [address] Social History Tobacco Use Types Packs/Day Years Used Date Smoking Tobacco: Never Assessed Sex Assigned at Date Recorded Not on file documented as of this encounter Plan of Treatment Not on filedocumented as of this encounter Visit Diagnoses Not on filedocumented in this encounter Care Teams Vp Communications Relationship Specialty Start Date End Date Suhas Lyon MD PCP - General 06/13/20 [address] [place] [address] documented as of this encounter
--- OUTSIDE RECORDS SUMMARY | 2022-04-13 11:09 | XMS_ITS | Encounter Summary ---
:1980 Author Organization [facility] Address [address], [place] [address] Care Team Providers Name Role Phone Dwaine Holden MD Primary Care Provider Unavailable Encounter Details Date Type Department Care Team Description 03/30/1995 Office Visit Alton Brady MD Esotropia, unspecified [address] [address] Social History Tobacco Use Types Packs/Day Years Used Date Smoking Tobacco: Never Assessed Sex Assigned at Date Recorded Not on file documented as of this encounter Plan of Treatment Not on filedocumented as of this encounter Visit Diagnoses Diagnosis Esotropia, unspecified documented in this encounter Care Teams Accounting System Expert Relationship Specialty Start Date End Date Dwaine Holden MD PCP - General 07/28/1996 12/05/07 [address] [place] [address] documented as of this encounter
[2022-04-13 12:35] LABS: Chloride* 100 mmol/L (96-114); Potassium* 4.8 mmol/L (3.6-5.1); Sodium* 138 mmol/L (135-149)
[2022-04-13 12:38] LABS: Blood Urea Nitrogen* 17 mg/dL (5-24); Carbon Dioxide* 29 mmol/L (20-32); Creatinine* 0.9 mg/dL (0.5-1.5); Estimated Glomerular Filt Rate 109 ml/min
[2022-04-13 12:39] LABS: Calcium* 9.6 mg/dL (8.4-10.6); Glucose* 91 mg/dL (60-115)
== END 2022-04-13 11:05 | disposition home or self-care (01) ==
LOC: NFLDREF 11:05
PROVIDERS: PCP Family Medicine; Visit Provider Family Medicine
DX: I10 Essential (primary) hypertension (principal)
CPT/HCPCS: 80048

== ENCOUNTER 2022-09-28 09:49 | Outpatient (CLI) | payer OTHER, SELFPAY ==
[2022-09-28 11:19] LABS: Albumin* 4.5 g/dL (3.3-5.0)
[2022-09-28 11:20] LABS: Chloride* 103 mmol/L (96-114); Potassium* 4.7 mmol/L (3.6-5.1); Sodium* 139 mmol/L (135-149)
[2022-09-28 11:22] LABS: Aspartate Amino Transferase* 47 U/L (12-35); Bilirubin Total* 0.8 mg/dL (0.1-1.5); Carbon Dioxide* 28 mmol/L (20-32); Cholesterol* 252 mg/dL (90-199); Estimated Glomerular Filt Rate 96 ml/min; Total Protein* 7.6 g/dL (6.0-8.3)
[2022-09-28 11:23] LABS: Alanine Aminotransferase* 48 U/L (4-50); Alkaline Phosphatase* 77 U/L (40-150); Blood Urea Nitrogen* 13 mg/dL (5-24); Calcium* 9.5 mg/dL (8.4-10.6); Glucose* 88 mg/dL (60-115); HDL Cholesterol* 49 mg/dL (>=40); LDL Cholesterol Calculated 157 mg/dL (<100); Triglycerides* 228 mg/dL (40-149)
== END 2022-09-28 09:50 | disposition home or self-care (01) ==
PROVIDERS: PCP Family Medicine; Visit Provider Family Medicine
DX: Z00.00 Encounter for general adult medical examination without abnormal findings (principal); I10 Essential (primary) hypertension; Z13.6 Encounter for screening for cardiovascular disorders
CPT/HCPCS: 80053; 80061

== ENCOUNTER 2023-09-30 08:28 | Outpatient (CLI) | payer OTHER, SELFPAY ==
--- OUTSIDE RECORDS SUMMARY | 2023-09-30 08:30 | XMS_ITS | Clinical Summary ---
Author Name Unknown Organization [facility] Address [address], [place] [address] Care Team Providers Care Silver Solderer Name Role Phone Suhas Lyon MD Primary Care Provider [phone] Source Comments You are receiving this document as you are listed as the primary care provider,follow-up provider, or the patient has been referred to you for consultation.This is in compliance with the Medicare and[facility] EHR Incentive Program,which states Providers who transition their patient to another setting of careor provider of care or refers their patient to another provider of care shouldprovide summary care record for each transition of care or referral. [employer] Allergies Active Allergy Reactions Criticality Noted Date Comments Other Rash 04/08/2009 Nickel allergy Penicillin And Derivatives Medications Medication Sig Dispensed Refills Start Date End Date Status omeprazole (PRILOSEC) 20 MG capsule Take 20 mg by mouth daily. Take 1 hour before a meal. Active amLODIPine (NORVASC) 5 MG tablet Take 1 Tablet by mouth daily. 30 Tablet 03/27/2020 Active buPROPion (WELLBUTRIN XL) 300 MG 24 hour release tablet Take 1 Tablet by mouth daily. 30 Tablet 03/27/2020 Active citalopram (CELEXA) 20 MG tablet Take 1 Tablet by mouth daily. 30 Tablet 03/27/2020 Active Active Problems Problem Noted Date Diagnosed Date Essential hypertension 09/06/2018 Depression, recurrent 08/17/2013 Anxiety disorder 10/24/2009 Overview: Anxiety Disorder NOS Alcohol dependence in remission 05/08/2009 Overview: Relapsed, currently drinking. February 2019. Persistent disorder of initiating or maintaining sleep 04/08/2009 Immunizations Name Administration Dates Next Due Fluzone Qiv Multidose Vial 0 .25 (6-35 Mos) 05/25/2016,05/19/2013 Influenza IIV4 (Quadrivalent ) 0.5mL (09360) 06/20/2018,05/03/2015,05/31/2014, 013 MMR 12/02/1989 Td 03/04/1993 Tdap 09/08/2011 Family History Medical History Relation Name Comments Alcohol/Drug Abuse Father Alcohol/Drug Abuse Mother Relation Name Status Comments Father Mother Social History Tobacco Use Types Packs/Day Years Used Date Smoking Tobacco: Former Smokeless Tobacco: Former Quit: 07/16/2011 Alcohol Use Standard Drinks/Week Comments Yes 0 (1 standard drink = 0.6 oz pur e alcohol) Sex and Gender Information Value Date Recorded Sex Assigned at Not on file Gender Identity Not on file Sexual Orientation Not on file Last Filed Vital Signs Vital Sign Reading Time Taken Comments Blood Pressure 143/102 03/08/2019 3:23 PM CDT Pulse 66 03/08/2019 3:23 PM CDT Temperature 36.9 ??C (98.5 ??F) 10/03/2014 11:[address] Respiratory Rate 20 03/08/2019 3:16 PM CDT Oxygen Saturation 97% 04/28/2012 12:47 AM CDT Inhaled Oxygen Concentration - - Weight 105.7 kg (233 lb) 03/08/2019 3:16 PM CDT Height 177.8 cm (5' 10) 09/06/2018 3:08 PM FREEZER LABORATORY TECHNICIAN Body Mass Index 33.43 09/06/2018 3:08 PM FREEZER LABORATORY TECHNICIAN Plan of Treatment Health Maintenance Due Date Last Done Comments Hep C Screening (Preventive Services) 1978 Pneumococcal (1 - PCV) 1984 HIV Screening (Preventive Services) 1994 Adult Preventive Visit 1996 Cholesterol 2013 DTaP/Tdap/Td (3 - Tdap) 09/08/2021 09/08/2011, 03/04 COVID-19 Vaccine (2 - season) 2023 11/23/2020 Influenza (#1) 2023 05/13/2020, 05/16, 06/20/2018, Additional history exists Zoster/Shingles (1 of 2) 2028 HPV Vaccine Aged Out No longer eligi ble based on patient's age to complete this topic HepA Aged Out No longer eligi ble based on patient's age to complete this topic Hib Aged Out No longer eligi ble based on patient's age to complete this topic IPV (Polio) Aged Out No longer eligi ble based on patient's age to complete this topic MCV4 Aged Out No longer eligi ble based on patient's age to complete this topic Care Teams Silver Solderer Relationship Specialty Start Date End Date Suhas Lyon MD [address] [place] [address] PCP - General 06/13/20
--- OUTSIDE RECORDS SUMMARY | 2023-09-30 08:30 | XMS_ITS | Encounter Summary ---
Author Name Unknown Organization [facility] Address [address] [place] [address] Care Team Providers Care Forensic Nurse Name Role Phone Suhas Lyon MD Primary Care Provider [phone] Reason for Referral * Consult/Transfer Care (Routine) - Closed Specialty Diagnoses / Procedures Referred By Angel tomlin Referred To Contact Diagnoses Encounter for long-term (current) use of medications Chava Christensen MD [address] [place] [address] Referral ID Status Reason Start Date Expiration Date Visits Re quested Visits Authorized [id number] Closed 03/26/2017 04/26/2017 1 1 Scheduling Instructions Your provider has recommended you to follow up with your Primary Learning Support Resource Room Teacher. If you are currently seeing a [facility] provider for your primary care needs, a rehabilitation aide/scheduler will contact you within the next 3 business days to assist you in setting up this appointment. To schedule your appointment you may call [phone]. We suggest you call your health insurance company about your coverage and benefits for this service. Question Answer What type of follow up? Routine Appointment Urgency? Non-Urgent Reason for visit? Medication Refill Comments SCHEDULE THE FOLLOWING: - OFFICE VISIT BY: Now (Due as of 12/13/2016 for multiple medications including citalopram (CELEXA) 20 MG tablet) - LAST QUALIFYING VISIT IN FAMILY PRACTICE: 12/19/2015 - NEXT SCHEDULED VISIT: None - NEXT LAB APPOINTMENT: None We recently received a refill request on one of your medications. While reviewing your chart, we noticed that you are going to be due for a visit with your provider within the next 3 months. You can schedule your appointment online at [employer] or by calling the appointment center at the phone number listed above. Thank you for choosing [facility]. Leora Nielsen RN [facility] Refill Center Nurses Encounter Details Date Type Department Care Team (Late st Contact Info) Description 03/20/2017 Refill Order [facility] [address] [place] [address] Chava Christensen MD [address] [place] [address] Social History Tobacco Use Types Packs/Day Years Used Date Smoking Tobacco: Former Smokeless Tobacco: Former Quit: 07/16/2011 Alcohol Use Standard Drinks/Week Comments Yes 0 (1 standard drink = 0.6 oz pur e alcohol) Sex and Gender Information Value Date Recorded Sex Assigned at Not on file Gender Identity Not on file Sexual Orientation Not on file documented as of this encounter Nursing Notes * Niall Ware CMA - 03/26/2017 9:21 AM CDT Pt notified. Referral order placed in chart. Niall Ware CMA 03/26/2017, 9:21 AM documented in this encounter Plan of Treatment Scheduled Referrals Name Type Priority Associated Diagnoses Orde r Schedule Primary Care Follow-Up Referral Routine Encounter for long-term (current) use of medications Ordered: 03/26/2017 documented as of this encounter Visit Diagnoses Diagnosis Encounter for long-term (current) use of medications- Primary Encounter for long-term (current) use of other medications documented in this encounter Care Teams Forensic Nurse Relationship Specialty Start Date End Date Suhas Lyon MD [address] [place] [address] PCP - General 06/13/20 documented as of this encounter
--- OUTSIDE RECORDS SUMMARY | 2023-09-30 08:31 | XMS_ITS | Encounter Summary ---
Author Name Unknown Organization [facility] Address [address] [address] Care Team Providers Care Human Resources Advisor Name Role Phone Suhas Lyon MD Primary Care Provider [phone] Encounter Details Date Type Department Care Team (Latest Contact Info) Description 08/06/1996 Orders Only Zack Puckett Social History Tobacco Use Types Packs/Day Years Used Date Smoking Tobacco: Never Assessed Sex and Gender Information Value Date Recorded Sex Assigned at Not on file Gender Identity Not on file Sexual Orientation Not on file documented as of this encounter Plan of Treatment Not on file documented as of this encounter Visit Diagnoses Not on filedocumented in this encounter Care Teams Human Resources Advisor Relationship Specialty Start Date End Date Shuas Lyon MD [address] [place] [address] PCP - General 06/13/20 documented as of this encounter
--- OUTSIDE RECORDS SUMMARY | 2023-09-30 08:31 | XMS_ITS | Encounter Summary ---
Author Name Unknown Organization [facility] Address [address] [address] Care Team Providers Care Construction Scheduler Name Role Phone Suhas Lyon MD Primary Care Provider [phone] Encounter Details Date Type Department Care Team (Latest Contact Info) Description 12/20/1995 Orders Only Fabian Yousif MD [place], [place] [id number] Social History Tobacco Use Types Packs/Day Years Used Date Smoking Tobacco: Never Assessed Sex and Gender Information Value Date Recorded Sex Assigned at Not on file Gender Identity Not on file Sexual Orientation Not on file documented as of this encounter Plan of Treatment Not on file documented as of this encounter Visit Diagnoses Not on filedocumented in this encounter Care Teams Construction Scheduler Relationship Specialty Start Date End Date Suhas Lyon MD [address] [place] [address] PCP - General 06/13/20 documented as of this encounter
--- OUTSIDE RECORDS SUMMARY | 2023-09-30 08:31 | XMS_ITS | Encounter Summary ---
Author Name Unknown Organization [facility] Address [address] [address] Care Team Providers Care Emergency Vehicle Technician Name Role Phone Suhas Lyon MD Primary Care Provider [phone] Encounter Details Date Type Department Care Team (Latest Contact Info) Description 09/26/1996 Orders Only Shazia Barry MD [address] [place] [address] Social History Tobacco Use Types Packs/Day Years Used Date Smoking Tobacco: Never Assessed Sex and Gender Information Value Date Recorded Sex Assigned at Not on file Gender Identity Not on file Sexual Orientation Not on file documented as of this encounter Plan of Treatment Not on file documented as of this encounter Visit Diagnoses Not on filedocumented in this encounter Care Teams Emergency Vehicle Technician Relationship Specialty Start Date End Date Suhas Lyon MD [address] [place] [address] PCP - General 06/13/20 documented as of this encounter
--- OUTSIDE RECORDS SUMMARY | 2023-09-30 08:31 | XMS_ITS | Encounter Summary ---
Author Name Unknown Organization [facility] Address [address] [address] Care Team Providers Care Bladder Blower Name Role Phone Suhas Lyon MD Primary Care Provider [phone] Encounter Details Date Type Department Care Team (Latest Contact Info) Description 07/19/1995 Orders Only Fredo Valdes MD [address] [place] [address] Social History Tobacco Use Types Packs/Day Years Used Date Smoking Tobacco: Never Assessed Sex and Gender Information Value Date Recorded Sex Assigned at Not on file Gender Identity Not on file Sexual Orientation Not on file documented as of this encounter Plan of Treatment Not on file documented as of this encounter Visit Diagnoses Not on filedocumented in this encounter Care Teams Bladder Blower Relationship Specialty Start Date End Date Suhas Lyon MD [address] [place] [address] PCP - General 06/13/20 documented as of this encounter
--- OUTSIDE RECORDS SUMMARY | 2023-09-30 08:31 | XMS_ITS | Encounter Summary ---
Author Name Unknown Organization [facility] Address [address] [address] Care Team Providers Care Crusher Foreman Name Role Phone Suhas Lyon MD Primary Care Provider [phone] Encounter Details Date Type Department Care Team (Latest Contact Info) Description 02/25/1995 Orders Only Krystian Bernard MD [address] [address] Social History Tobacco Use Types Packs/Day Years Used Date Smoking Tobacco: Never Assessed Sex and Gender Information Value Date Recorded Sex Assigned at Not on file Gender Identity Not on file Sexual Orientation Not on file documented as of this encounter Plan of Treatment Not on file documented as of this encounter Visit Diagnoses Not on filedocumented in this encounter Care Teams Crusher Foreman Relationship Specialty Start Date End Date Suhas Lyon MD [address] [place] [address] PCP - General 06/13/20 documented as of this encounter
--- OUTSIDE RECORDS SUMMARY | 2023-09-30 08:31 | XMS_ITS | Encounter Summary ---
Author Name Unknown Organization [facility] Address [address] [address] Care Team Providers Care Investment Analyst Name Role Phone Suhas Lyon MD Primary Care Provider [phone] Encounter Details Date Type Department Care Team (Latest Contact Info) Description 05/10/1997 Orders Only Fabian Yousif MD [place], [place] [id number] Social History Tobacco Use Types Packs/Day Years Used Date Smoking Tobacco: Never Assessed Sex and Gender Information Value Date Recorded Sex Assigned at Not on file Gender Identity Not on file Sexual Orientation Not on file documented as of this encounter Plan of Treatment Not on file documented as of this encounter Visit Diagnoses Not on filedocumented in this encounter Care Teams Investment Analyst Relationship Specialty Start Date End Date Suhas Lyon MD [address] [place] [address] PCP - General 06/13/20 documented as of this encounter
--- OUTSIDE RECORDS SUMMARY | 2023-09-30 08:31 | XMS_ITS | Encounter Summary ---
Author Name Unknown Organization [facility] Address [address], [place] [address] Care Team Providers Care Supervisor Pole Yard Name Role Phone Suhas Lyon MD Primary Care Provider [phone] Encounter Details Date Type Department Care Team (Late st Contact Info) Description 12/16/2016 Refill Order [facility] [address] [place] [address] No Primary/Referring, Phy Social History Tobacco Use Types Packs/Day Years [...] medications documented in this encounter Care Teams Supervisor Pole Yard Relationship Specialty Start Date End Date Suhas Lyon MD [address] [place] [address] PCP - General 06/13/20 documented as of this encounter
--- OUTSIDE RECORDS SUMMARY | 2023-09-30 08:31 | XMS_ITS | Encounter Summary ---
Author Name Unknown Organization [facility] Address [address], [place] [address] Care Team Providers Care Felt Cutting Machine Operator Name Role Phone Suhas Lyon MD Primary Care Provider [phone] Encounter Details Date Type Department Care Team (Latest Contact Info) Description 04/27/1995 Orders Only Alton Brady MD [address] [address] Social History Tobacco Use Types Packs/Day Years Used Date Smoking Tobacco: Never Assessed Sex and Gender Information Value Date Recorded Sex Assigned at Not on file Gender Identity Not on file Sexual Orientation Not on file documented as of this encounter Plan of Treatment Not on file documented as of this encounter Visit Diagnoses Not on filedocumented in this encounter Care Teams Felt Cutting Machine Operator Relationship Specialty Start Date End Date Suhas Lyon MD [address] [place] [address] PCP - General 06/13/20 documented as of this encounter
--- OUTSIDE RECORDS SUMMARY | 2023-09-30 08:31 | XMS_ITS | Encounter Summary ---
Author Name Unknown Organization [facility] Address [address] [address] Care Team Providers Care Auto Bench Mechanic Name Role Phone Suhas Lyon MD Primary Care Provider [phone] Encounter Details Date Type Department Care Team (Latest Contact Info) Description 09/25/1997 Orders Only Javi Gunter Social [...] on filedocumented in this encounter Care Teams Auto Bench Mechanic Relationship Specialty Start Date End Date Suhas Lyon MD [address] [place] [address] PCP - General 06/13/20 documented as of this encounter
--- OUTSIDE RECORDS SUMMARY | 2023-09-30 08:31 | XMS_ITS | Encounter Summary ---
Author Name Unknown Organization [facility] Address [address] [address] Care Team Providers Care Felting Machine Operator Helper Name Role Phone Suhas Lyon MD Primary Care Provider [phone] Encounter Details Date Type Department Care Team (Latest Contact Info) Description 01/08/1998 Orders Only Javi Gunter Social [...] on filedocumented in this encounter Care Teams Felting Machine Operator Helper Relationship Specialty Start Date End Date Suhas Lyon MD [address] [place] [address] PCP - General 06/13/20 documented as of this encounter
== END 2023-09-30 08:29 | disposition home or self-care (01) ==
PROVIDERS: PCP Family Medicine; Visit Provider Family Medicine
DX: I10 Essential (primary) hypertension (principal); E78.2 Mixed hyperlipidemia
CPT/HCPCS: 80048; 80053; 80061

== ENCOUNTER 2023-11-11 15:24 | Outpatient (CLI) | payer OTHER, SELFPAY | END 2023-11-11 15:25 | disposition home or self-care (01) | LOC: NFLDREF 15:24 | PROVIDERS: PCP Family Medicine; Visit Provider Family Medicine | DX: F41.9 Anxiety disorder, unspecified (principal) | CPT/HCPCS: 84443 ==

== ENCOUNTER 2024-04-17 08:37 | Emergency (ER) | payer OTHER, SELFPAY ==
[2024-04-17 08:42] VITALS: BP 137/82; PULSE 82; RESP 16; TEMP 36.4; O2SAT 96; BMI 33.7
--- NOTE | 2024-04-17 09:01 | ED.GENADULT ---
HPI - General Adult General Chief complaint: Extremity Pain/Injury, Lower Stated complaint: RT foot injury Time Seen by Provider: 04/17/24 09:01 History of Present Illness HPI narrative: Patient is a 43-year-old gentleman who comes in today home with 3 days of a red swollen foot. He has had no recent injuries. No signs of infection. The pain is mostly present over the metatarsal heads. He has had no history of gout the past does have hypertension. He is currently taking amlodipine and lisinopril for blood pressure control. No other concerns are noted. Related Data Previous Rx's ?Medication ?Instructions ?Recorded lisinopril 10 mg tablet 10 mg PO QDAY #90 tabs 09/30/23 omeprazole 20 mg capsule,delayed 20 mg PO DAILY #90 caps 09/30/23 release escitalopram oxalate 10 mg tablet 10 mg PO QDAY #90 tabs 12/09/23 (Lexapro) amlodipine 10 mg tablet 10 mg PO QDAY #90 tabs 02/22/24 Allergies Allergy/AdvReac Type Severity Reaction Status Date / Time Penicillins Allergy Severe Hives Verified 01/11/24 10:45 nickel Allergy Unknown Rash Verified 01/11/24 10:45 Review of Systems Status of ROS: Reports: 10 or more systems reviewed and unremarkable except as noted in History and below PFSH PFS Medical History Anxiety disorder ?F41.9 - Anxiety disorder, unspecified (ICD-10) Major depression ?F32.9 - Major depressive disorder, single episode, unspecified (ICD-10) Surgical History Hx of eye surgery ?Z98.890 - Other specified postprocedural states (ICD-10) Status post vasectomy ?Z98.52 - Vasectomy status (ICD-10) Family History Family/Other Coronary artery disease Alcoholism Aunt Breast cancer Mother Depression with anxiety Alcoholism Father Depression with anxiety Alcoholism Social History Narrative: with dtr. 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 exercise 7-10 x/wk. bike, resist, walk no tob, alcohol or rec drug use. Alcoholic - sober x 3 months. What is your current living situation?: I presently have a place to live Problems where you live: pests, such as bugs, ants, or mice In the past 12 months, utilities in danger of being shut off: no In past 12 months, lack of transportation kept you from medical appts, meetings, work, or getting things needed for daily living: no In the past 12 mos, have been you worried that your food would run out before you had money to buy more?: never true In the past 12 mos, the food you bought just didn't last and you didn't have money to buy more?: never true Smoking Status: Former smoker How often does anyone, including family, friends and others, physically hurt you: never How often does anyone, including family, friends and others, insult or talk down to you: never How often does anyone, including family, friends and others, threaten you with harm: never How often does anyone, including family, friends and others, scream or curse at you: never Little interest or pleasure in doing things: several days Feeling down, depressed, or hopeless: several days Exam Narrative: Exam Narrative: EXAM GENERAL: Patient appears comfortable and well. EYES: No scleral icterus. LYMPH: No supraclavicular or cervical lymphadenopathy. SKIN: Visible skin seen during exam normal or with benign process only. EXT: Red swollen right foot noted primarily over the metatarsal heads. HEART: Regular rate and rhythm with no murmurs, rubs, or gallops. LUNGS: Clear to auscultation bilaterally with no crackles or wheezes. ABD: Soft, non tender, non distended. PSYCH: Good eye contact, speech is not pressured. Const: Vital Signs, click to edit/add: Vital Signs - 24 hr 04/17/24 08:42 Temperature 97.5 F L Pulse Rate [Pulse Oximeter] 82 Respiratory Rate 16 Blood Pressure [Le ft Upper Arm] 137/82 Pulse Oximetry 96 Oxygen Delivery Me thod Room Air Course Course ED Course: Patient seen and examined. Vital Signs Vital signs: Initial Vital Signs Temperature 97.5 F L 04/17/24 08:42 Temperature Source Temporal Artery Scan 04/17/24 08:42 Pulse Rate 82 04/17/24 08:42 Pulse Rhythm Regular 04/17/24 08:42 Respiratory Rate 16 04/17/24 08:42 Blood Pressure 137/82 04/17/24 08:42 Blood Pressure Mean 100 04/17/24 08:42 Blood Pressure Position Sitting 04/17/24 08:42 Pulse Oximetry 96 04/17/24 08:42 Oxygen Delivery Method Room Air 04/17/24 08:42 Vital Signs Temperature 97.5 F L 04/17/24 08:42 Pulse Rate 82 04/17/24 08:42 Respiratory Rate 16 04/17/24 08:42 Blood Pressure 137/82 04/17/24 08:42 Pulse Oximetry 96 04/17/24 08:42 Oxygen Delivery Method Room Air 04/17/24 08:42 Temperature 97.5 F L 04/17/24 08:42 Pulse Rate 82 04/17/24 08:42 Respiratory Rate 16 04/17/24 08:42 Blood Pressure 137/82 04/17/24 08:42 Pulse Oximetry 96 04/17/24 08:42 Oxygen Delivery Method Room Air 04/17/24 08:42 Medical Decision Making MDM Narrative Medical decision making narrative: Patient presents with a monoarthritis of 3 days duration. He a likely has gout and I believe any further evaluation is needed at this time other than treatment of his 1st episode. Did place him on prednisone 20 mg b.i.d. and recommend follow-up with his primary physician in the next 1-2 weeks. He take Tylenol for pain and follow-up as directed. Differential diagnosis includes but not limited to gout pseudogout trauma to infection. Discharge Plan Discharge Clinical Impression: Gout Patient Disposition: Home, Self-Care Condition: Stable Instructions: Gout (ED) Additional Instructions: Prednisone as directed Tylenol as directed Rest Ice Follow-up with your doctor the next 1-2 weeks as needed. Activity Level: Activity as Tolerated Discharge Diet: Regular Prescriptions: No Action lisinopril 10 mg tablet 10 mg PO QDAY Qty: 90 3RF omeprazole 20 mg capsule,delayed release(DR/EC) 20 mg PO DAILY Qty: 90 3RF escitalopram oxalate [Lexapro] 10 mg tablet 10 mg PO QDAY Qty: 90 3RF amlodipine 10 mg tablet 10 mg PO QDAY Qty: 90 1RF Follow Up/Referrals: Richie Bull MD [Primary Care Provider] - Stand Alone Forms: Vendth Info Instructions
--- OUTSIDE RECORDS SUMMARY | 2024-04-17 09:15 | XMS_ITS | Encounter Summary ---
Author Organization [facility] Address [address] [address] Care Team Providers Care Mathematics Department Chair Name Role Phone Suhas Lyon MD Primary Care Provider [phone] Encounter Details Date Type Department Care Team [...] on filedocumented in this encounter Care Teams Mathematics Department Chair Relationship Specialty Start Date End Date Suhas Lyon MD [address] [place] [address] PCP - General 06/13/20 documented as of this encounter
--- OUTSIDE RECORDS SUMMARY | 2024-04-17 09:15 | XMS_ITS | Encounter Summary ---
Author Organization [facility] Address [address] [address] Care Team Providers Care Technology Sales Representative Name Role Phone Suhas Lyon MD Primary Care Provider [phone] Encounter Details Date Type Department Care Team (Latest Contact Info) Description 05/10/1997 Orders Only [place] [address] Social History Tobacco Use Types Packs/Day Years Used Date Smoking Tobacco: Never Assessed Sex and Gender Information Value Date Recorded Sex Assigned at Not on file Gender Identity Not on file Sexual Orientation Not on file documented as of this encounter Plan of Treatment Not on file documented as of this encounter Visit Diagnoses Not on filedocumented in this encounter Care Teams Technology Sales Representative Relationship Specialty Start Date End Date Suhas Lyon MD [address] [place] [address] PCP - General 06/13/20 documented as of this encounter
--- OUTSIDE RECORDS SUMMARY | 2024-04-17 09:15 | XMS_ITS | Encounter Summary ---
Author Organization [facility] Address [address] [place] [address] Care Team Providers Care Chrome Plater Name Role Phone Suhas Lyon MD Primary Care Provider [phone] Reason for Referral * Consult/Transfer Care (Routine) - Closed Specialty Diagnoses / Procedures Referred By Angel tomlin Referred To Contact Diagnoses Encounter for long-term (current) use of medications Chava Christensen MD [address] [place] [address] Referral ID Status Reason Start Date Expiration Date Visits Re quested Visits Authorized [id number] Closed 03/26/2017 04/26/2017 1 1 Scheduling Instructions Your provider has recommended you to follow up with your Primary Supervisor Park Workers. If you are currently seeing a [facility] provider for your primary care needs, a kitchenhand will contact you within the next 3 business days to assist you in setting up this appointment. To schedule your appointment you may call [phone]. We suggest you call your health insurance [...] You can schedule your appointment online at [employer] or by calling the appointment center at the phone number listed above. Thank you for choosing [facility]. Leora Nielsen RN [facility] Refill Center Nurses Encounter Details Date Type Department Care Team (Late st Contact Info) Description 03/20/2017 Refill Order [place] [address] [facility] [place] [address] Chava Christensen MD [address] [place] [address] Social History Tobacco Use Types Packs/Day Years [...] medications documented in this encounter Care Teams Chrome Plater Relationship Specialty Start Date End Date Suhas Lyon MD [address] [place] [address] PCP - General 06/13/20 documented as of this encounter
--- OUTSIDE RECORDS SUMMARY | 2024-04-17 09:15 | XMS_ITS | Encounter Summary ---
Author Organization [facility] Address [address] [place] [address] Care Team Providers Care Grievance And Appeals Specialist Name Role Phone Suhas Lyon MD Primary Care Provider [phone] Encounter Details Date Type Department Care Team (Late st Contact Info) Description 12/16/2016 Refill Order [facility] [address] [facility] [place] [address] No Primary/Referring, Phy Social History Tobacco Use [...] medications documented in this encounter Care Teams Grievance And Appeals Specialist Relationship Specialty Start Date End Date Suhas Lyon MD [address] [place] [address] PCP - General 06/13/20 documented as of this encounter
--- OUTSIDE RECORDS SUMMARY | 2024-04-17 09:15 | XMS_ITS | Encounter Summary ---
Author Organization [facility] Address [address], [place] [address] Care Team Providers Care Flame Hardening Machine Setter Name Role Phone Suhas Lyon MD Primary Care Provider [phone] Encounter Details Date Type Department Care Team (Latest Contact Info) Description 09/26/1996 [place] [address] [place] [address] Social History Tobacco Use Types Packs/Day Years Used Date Smoking Tobacco: Never Assessed Sex and Gender Information Value Date Recorded Sex Assigned at Not on file Gender Identity Not on file Sexual Orientation Not on file documented as of this encounter Plan of Treatment Not on file documented as of this encounter Visit Diagnoses Not on filedocumented in this encounter Care Teams Flame Hardening Machine Setter Relationship Specialty Start Date End Date Suhas Lyon MD [address] [place] [address] PCP - General 06/13/20 documented as of this encounter
--- OUTSIDE RECORDS SUMMARY | 2024-04-17 09:15 | XMS_ITS | Encounter Summary ---
Author Organization [facility] Address [address] [address] Care Team Providers Care Preparer Name Role Phone Suhas Lyon MD Primary Care Provider [phone] Encounter Details Date Type Department Care Team [...] on filedocumented in this encounter Care Teams Preparer Relationship Specialty Start Date End Date Suhas Lyon MD [address] [place] [address] PCP - General 06/13/20 documented as of this encounter
--- OUTSIDE RECORDS SUMMARY | 2024-04-17 09:15 | XMS_ITS | Encounter Summary ---
Author Organization [facility] Address [address], [place] [address] Care Team Providers Care Spanish Medical Interpreter Name Role Phone Suhas Lyon MD Primary Care Provider [phone] Encounter Details Date Type Department Care Team (Latest Contact Info) Description 12/20/1995 Orders [place] [address] Social History Tobacco Use Types Packs/Day Years Used Date Smoking Tobacco: Never Assessed Sex and Gender Information Value Date Recorded Sex Assigned at Not on file Gender Identity Not on file Sexual Orientation Not on file documented as of this encounter Plan of Treatment Not on file documented as of this encounter Visit Diagnoses Not on filedocumented in this encounter Care Teams Spanish Medical Interpreter Relationship Specialty Start Date End Date Suhas Lyon MD [address] [place] [address] PCP - General 06/13/20 documented as of this encounter
--- OUTSIDE RECORDS SUMMARY | 2024-04-17 09:15 | XMS_ITS | Encounter Summary ---
Author [facility] Address [address] [address] Care Team Providers Care Toy Assembler Wood Name Role Phone Suhas Lyon MD Primary Care Provider [phone] Encounter Details Date Type Department Care Team (Latest Contact Info) Description 02/25/1995 Orders Only Krystian Bernard MD [address] [id number] Social History Tobacco Use Types Packs/Day Years Used Date Smoking Tobacco: Never Assessed Sex and Gender Information Value Date Recorded Sex Assigned at Not on file Gender Identity Not on file Sexual Orientation Not on file documented as of this encounter Plan of Treatment Not on file documented as of this encounter Visit Diagnoses Not on filedocumented in this encounter Care Teams Toy Assembler Wood Relationship Specialty Start Date End Date Suhas Lyon MD [address] [place] [address] PCP - General 06/13/20 documented as of this encounter
--- OUTSIDE RECORDS SUMMARY | 2024-04-17 09:15 | XMS_ITS | Encounter Summary ---
Author Organization [facility] Address [address] [address] Care Team Providers Care Benefits Representative Name Role Phone Suhas Lyon MD Primary Care Provider [phone] Encounter Details Date Type Department Care Team (Latest Contact Info) Description 07/19/1995 Orders Only Fredo Valdes MD [address] [place] [address] Social History Tobacco Use Types Packs/Day Years Used Date Smoking Tobacco: Never Assessed Sex and Gender Information Value Date Recorded Sex Assigned at Not on file Gender Identity Not on file Sexual Orientation Not on file documented as of this encounter Plan of Treatment Not on file documented as of this encounter Visit Diagnoses Not on filedocumented in this encounter Care Teams Benefits Representative Relationship Specialty Start Date End Date Suhas Lyon MD [address] [place] [address] PCP - General 06/13/20 documented as of this encounter
--- OUTSIDE RECORDS SUMMARY | 2024-04-17 09:15 | XMS_ITS | Encounter Summary ---
Author Organization [facility] Address [address], [place] [address] Care Team Providers Care Integration Director Name Role Phone Suhas Lyon MD Primary Care Provider [phone] Encounter Details Date Type Department Care Team (Latest Contact Info) Description 04/27/1995 Orders Only Alton Brady MD [address] [address] Social History Tobacco Use Types Packs/Day Years Used Date Smoking Tobacco: Never Assessed Sex and Gender Information Value Date Recorded Sex Assigned at Not on file Gender Identity Not on file Sexual Orientation Not on file documented as of this encounter Plan of Treatment Not on file documented as of this encounter Visit Diagnoses Not on filedocumented in this encounter Care Teams Integration Director Relationship Specialty Start Date End Date Suhas Lyon MD [address] [place] [address] PCP - General 06/13/20 documented as of this encounter
--- OUTSIDE RECORDS SUMMARY | 2024-04-17 09:15 | XMS_ITS | Clinical Summary ---
Author Organization [facility] Address [address], [place] [address] Care Team Providers Care Engineer Of System Development Name Role Phone Suhas Lyon MD Primary Care Provider [phone] Source Comments You are receiving this document as you are listed as the primary care provider,follow-up provider, or the patient has been referred to you for consultation.This is in compliance with the Medicare and[facility] EHR Incentive Program,which states Providers who transition their patient to another setting of careor provider of care or refers their patient to another provider of care shouldprovide summary care record for each transition of care or referral. [facility] Allergies Active Allergy Reactions Criticality Noted Date [...] 09/06/2018 Depression, recurrent 08/17/2013 Anxiety disorder 10/24/2009 Overview (04/07/2017): Anxiety Disorder NOS Alcohol dependence in remission 05/08/2009 Overview (03/08/2019): Relapsed, currently drinking. February 2019. Persistent disorder of initiating or maintaining sleep 04/08/2009 Immunizations Name Administration Dates Next Due Fluzone Qiv Multidose Vial 0 .25 (6-35 Mos) 05/25/2016,05/19/2013 Influenza IIV4 (Quadrivalent ) 0.5mL (88995) 06/20/2018,05/03/2015,05/31/2014, 013 MMR 12/02/1989 Td 03/04/1993 Tdap [...] 177.8 cm (5' 10) 09/06/2018 3:08 PM WATER AND GAS HELPER Body Mass Index 33.43 09/06/2018 3:08 PM WATER AND GAS HELPER Plan of Treatment Health Maintenance Due Date Last Done Comments Colon Cancer Screening Plan Due 1978 Hep C Screening (Preventive Services) 1978 MTM Covered 1978 Pneumococcal (1 - PCV) 1984 HIV Screening (Preventive Services) 1994 Adult Preventive Visit 1996 Cholesterol 2013 DTaP/Tdap/Td (3 - Tdap) 09/08/2021 09/08/2011, 03/04 COVID-19 Vaccine (2 - 2023-24 season) 2023 11/23/2020 Influenza (#1) 2024 05/13/2020, 05/16, 06/20/2018, Additional history exists Zoster/Shingles [...] age to complete this topic Care Teams Engineer Of System Development Relationship Specialty Start Date End Date Suhas Lyon MD [address] [place] [address] PCP - General 06/13/20
--- OUTSIDE RECORDS SUMMARY | 2024-04-17 09:15 | XMS_ITS | Encounter Summary ---
Author Organization [facility] Address [address] [address] Care Team Providers Care Budget Director Name Role Phone Suhas Lyon MD [...] on filedocumented in this encounter Care Teams Budget Director Relationship Specialty Start Date End Date Suhas Lyon MD [address] [place] [address] PCP - General 06/13/20 documented as of this encounter
== END 2024-04-17 09:28 | disposition home or self-care (01) ==
LOC: ED 09:13
PROVIDERS: Emergency Provider Internal Medicine; PCP Family Medicine
DX: M10.9 Gout, unspecified (principal)
CPT/HCPCS: 99283

== ENCOUNTER 2024-05-03 15:16 | Outpatient (CLI) | payer OTHER, SELFPAY ==
--- OUTSIDE RECORDS SUMMARY | 2024-05-03 15:18 | XMS_ITS | Encounter Summary ---
Author Organization [facility] Address [address] [place] [address] Care Team Providers Care Doll Wig Maker Rooted Hair Name Role Phone Suhas Lyon MD Primary Care Provider [phone] Reason for Referral * Consult/Transfer Care (Routine) - Closed Specialty Diagnoses / Procedures Referred By Angel tomlin Referred To Contact Diagnoses Encounter for long-term (current) use of medications Chava Christensen MD [address] [place] [address] Referral ID Status Reason Start Date Expiration Date Visits Re quested Visits Authorized [id number] Closed 03/26/2017 04/26/2017 1 1 Scheduling Instructions Your provider has recommended you to follow up with your Primary Granite Polisher Machine. If you are currently seeing a [facility] provider for your primary care needs, a fuel handler will contact you within the next 3 business days to assist you in setting up this appointment. To schedule your appointment you may call [phone]. We suggest you call your health insurance [...] You can schedule your appointment online at [email or web address] or by calling the appointment center at the phone number listed above. Thank you for choosing [facility]. Leora Nielsen RN [facility] Refill [facility] Nurses Encounter Details Date Type Department Care Team (Late st Contact Info) Description 03/20/2017 Refill Order [facility] [address] [facility] [place] [address] Chava Christensen MD [address] [place] [address] Social History Tobacco Use Types Packs/Day Years [...] medications documented in this encounter Care Teams Doll Wig Maker Rooted Hair Relationship Specialty Start Date End Date Suhas Lyon MD [address] [place] [address] PCP - General 06/13/20 documented as of this encounter
--- OUTSIDE RECORDS SUMMARY | 2024-05-03 15:18 | XMS_ITS | Clinical Summary ---
Author Organization [facility] Address [address] [address] Care Team Providers Care Market Research Intern Name Role Phone Suhas Lyon MD Primary Care Provider [phone] Source Comments You are receiving this document as you are listed as the primary care provider,follow-up provider, or the patient has been referred to you for consultation.This is in compliance with the Medicare and[facility] EHR Incentive Program,which states Providers who transition their patient to another setting of careor provider of care or refers their patient to another provider of care shouldprovide summary care record for each transition of care or referral. [facility] Allergies Active Allergy Reactions Criticality Noted Date [...] Mos) 05/25/2016,05/19/2013 Influenza IIV4 (Quadrivalent ) 0.5mL (59227) 06/20/2018,05/03/2015,05/31/2014, 013 MMR 12/02/1989 Td 03/04/1993 Tdap [...] 177.8 cm (5' 10) 09/06/2018 3:08 PM SET UP OPERATOR TOOL Body Mass Index 33.43 09/06/2018 3:08 PM SET UP OPERATOR TOOL Plan of Treatment Health Maintenance Due Date Last Done Comments Colon Cancer Screening Plan Due 1978 Hep C Screening (Preventive Services) 1978 MTM Covered 1978 Pneumococcal (1 - PCV) 1984 HIV Screening (Preventive Services) 1994 Adult Preventive Visit 1996 Cholesterol 2013 DTaP/Tdap/Td (3 - Tdap) 09/08/2021 09/08/2011, 03/04 COVID-19 Vaccine (2 - season) 2024 11/23/2020 Influenza (#1) 2024 05/13/2020, 05/16, 06/20/2018, [...] age to complete this topic Care Teams Market Research Intern Relationship Specialty Start Date End Date Suhas Lyon MD [address] [place] [address] PCP - General 06/13/20
--- OUTSIDE RECORDS SUMMARY | 2024-05-03 15:18 | XMS_ITS | Encounter Summary ---
Author Organization [facility] Address [address], [place] [address] Care Team Providers Care System Support Developer Name Role Phone Suhas Lyon MD Primary Care Provider [phone] Encounter Details Date Type Department Care Team [...] on filedocumented in this encounter Care Teams System Support Developer Relationship Specialty Start Date End Date Suhas Lyon MD [address] [place] [address] PCP - General 06/13/20 documented as of this encounter
--- OUTSIDE RECORDS SUMMARY | 2024-05-03 15:18 | XMS_ITS | Encounter Summary ---
Author Organization Replaced by [facility] Address [address], [place] [address] Care Team Providers Care Cutting Torch Operator Name Role Phone Suhas Lyon MD Primary Care Provider [phone] Encounter Details Date Type Department Care Team (Latest Contact Info) Description 09/26/1996 [place] [address] [place] [address] Social History Tobacco Use Types Packs/Day Years Used Date Smoking Tobacco: Never Assessed Sex and Gender Information Value Date Recorded Sex Assigned at Not on file Gender Identity Not on file Sexual Orientation Not on file documented as of this encounter Plan of Treatment Not on file documented as of this encounter Visit Diagnoses Not on filedocumented in this encounter Care Teams Cutting Torch Operator Relationship Specialty Start Date End Date Suhas Lyon MD [address] [place] [address] PCP - General 06/13/20 documented as of this encounter
--- OUTSIDE RECORDS SUMMARY | 2024-05-03 15:18 | XMS_ITS | Encounter Summary ---
Author [facility] Address [address], [place] [address] Care Team Providers Care Financial Sales Representative Name Role Phone Suhas Lyon MD Primary Care Provider [phone] Encounter Details Date Type Department Care Team (Latest Contact Info) Description 07/19/1995 Orders Only Fredo Valdes MD [address] [place] [place] [address] Social History Tobacco Use Types Packs/Day Years Used Date Smoking Tobacco: Never Assessed Sex and Gender Information Value Date Recorded Sex Assigned at Not on file Gender Identity Not on file Sexual Orientation Not on file documented as of this encounter Plan of Treatment Not on file documented as of this encounter Visit Diagnoses Not on filedocumented in this encounter Care Teams Financial Sales Representative Relationship Specialty Start Date End Date Suhas Lyon MD [address] [place] [address] PCP - General 06/13/20 documented as of this encounter
--- OUTSIDE RECORDS SUMMARY | 2024-05-03 15:18 | XMS_ITS | Encounter Summary ---
Author Organization [facility] Address [address], [place] [address] Care Team Providers Care Pharmaceutical Physician Name Role Phone Suhas Lyon MD Primary Care Provider [phone] Encounter Details Date Type Department Care Team (Latest Contact Info) Description 05/10/1997 Orders Only [place] [address] Social History Tobacco Use Types Packs/Day Years Used Date Smoking Tobacco: Never Assessed Sex and Gender Information Value Date Recorded Sex Assigned at Not on file Gender Identity Not on file Sexual Orientation Not on file documented as of this encounter Plan of Treatment Not on file documented as of this encounter Visit Diagnoses Not on filedocumented in this encounter Care Teams Pharmaceutical Physician Relationship Specialty Start Date End Date Suhas Lyon MD [address] [place] [address] PCP - General 06/13/20 documented as of this encounter
--- OUTSIDE RECORDS SUMMARY | 2024-05-03 15:18 | XMS_ITS | Encounter Summary ---
Author Organization [facility] Address [address] [place] [address] Care Team Providers Care Local Company Hazmat Driver Name Role Phone Suhas Lyon MD Primary Care Provider [phone] Encounter Details Date Type Department Care Team (Late st Contact Info) Description 12/16/2016 Refill Order [facility] [address] [place] [address] No Primary/Referring, Phy Social History Tobacco Use [...] medications documented in this encounter Care Teams Local Company Hazmat Driver Relationship Specialty Start Date End Date Suhas Lyon MD [address] [place] [address] PCP - General 06/13/20 documented as of this encounter
--- OUTSIDE RECORDS SUMMARY | 2024-05-03 15:18 | XMS_ITS | Encounter Summary ---
Author Organization [facility] Address [address] [address] Care Team Providers Care Yardmaster Name Role Phone Suhas Lyon MD Primary Care Provider [phone] Encounter Details Date Type Department Care Team [...] on filedocumented in this encounter Care Teams Yardmaster Relationship Specialty Start Date End Date Suhas Lyon MD [address] [place] [address] PCP - General 06/13/20 documented as of this encounter
--- OUTSIDE RECORDS SUMMARY | 2024-05-03 15:18 | XMS_ITS | Encounter Summary ---
Author [facility] Address [address], [place] [address] Care Team Providers Care Marketing Analytics Manager Name Role Phone Suhas Lyon MD Primary Care Provider [phone] Encounter Details Date Type Department Care Team (Latest Contact Info) Description 12/20/1995 Orders [place] [address] Social History Tobacco Use Types Packs/Day Years Used Date Smoking Tobacco: Never Assessed Sex and Gender Information Value Date Recorded Sex Assigned at Not on file Gender Identity Not on file Sexual Orientation Not on file documented as of this encounter Plan of Treatment Not on file documented as of this encounter Visit Diagnoses Not on filedocumented in this encounter Care Teams Marketing Analytics Manager Relationship Specialty Start Date End Date Suhas Lyon MD [address] [place] [address] PCP - General 06/13/20 documented as of this encounter
--- OUTSIDE RECORDS SUMMARY | 2024-05-03 15:18 | XMS_ITS | Encounter Summary ---
Author Organization [facility] Address [address], [place] [address] Care Team Providers Care Solution Coordinator Name Role Phone Suhas Lyon MD Primary Care Provider [phone] Encounter Details Date Type Department Care Team (Latest Contact Info) Description 02/25/1995 Orders Only Krystian Bernard MD [address] [address] Social History Tobacco Use Types Packs/Day Years Used Date Smoking Tobacco: Never Assessed Sex and Gender Information Value Date Recorded Sex Assigned at Not on file Gender Identity Not on file Sexual Orientation Not on file documented as of this encounter Plan of Treatment Not on file documented as of this encounter Visit Diagnoses Not on filedocumented in this encounter Care Teams Solution Coordinator Relationship Specialty Start Date End Date Suhas Lyon MD [address] [place] [address] PCP - General 06/13/20 documented as of this encounter
--- OUTSIDE RECORDS SUMMARY | 2024-05-03 15:18 | XMS_ITS | Encounter Summary ---
Author Organization [facility] Address [address], [place] [address] Care Team Providers Care Cementing Machine Operator Name Role Phone Suhas Lyon MD Primary Care Provider [phone] Encounter Details Date Type Department Care Team (Latest Contact Info) Description 04/27/1995 Orders Only Alton Brady MD [address] [address] Social History Tobacco Use Types Packs/Day Years Used Date Smoking Tobacco: Never Assessed Sex and Gender Information Value Date Recorded Sex Assigned at Not on file Gender Identity Not on file Sexual Orientation Not on file documented as of this encounter Plan of Treatment Not on file documented as of this encounter Visit Diagnoses Not on filedocumented in this encounter Care Teams Cementing Machine Operator Relationship Specialty Start Date End Date Suhas Lyon MD [address] [place] [address] PCP - General 06/13/20 documented as of this encounter
--- OUTSIDE RECORDS SUMMARY | 2024-05-03 15:18 | XMS_ITS | Encounter Summary ---
Author Organization [facility] Address [address] [address] Care Team Providers Care Press Offbearer Name Role Phone Suhas Lyon MD Primary Care Provider [phone] Encounter Details Date Type Department Care Team [...] on filedocumented in this encounter Care Teams Press Offbearer Relationship Specialty Start Date End Date Suhas Lyon MD [address] [place] [address] PCP - General 06/13/20 documented as of this encounter
--- NOTE | 2024-05-03 15:30 | CRLHL7_ITS ---
For Patients: As a result of the Cures Act, medical imaging exams and procedure reports are released immediately into your electronic medical record. You may view this report before your referring provider. If you have questions, please contact your health care provider. Indication: Right 3rd toe pain. Technique: Noncontrast MRI scan of the right forefoot. Comparison: None. Findings: Markers: An MRI marker has been placed on the dorsal aspect of the forefoot at the level of the 3rd metatarsophalangeal joint. Subcutaneous tissues: Swelling and nonspecific edema within the subcutaneous tissues of the forefoot. Muscles: Unremarkable. No myopathy or mass. Tendons: The extensor and flexor tendons are intact. Joints: The metatarsophalangeal and interphalangeal joint spaces are preserved. There is a large effusion with diffuse synovitis of the 3rd metatarsal phalangeal joint. There is edema within the 3rd MTP joint periarticular soft tissues. Bones: Nonspecific bone marrow edema is present within the 3rd metatarsal head and proximal phalanx base, reactive to the acute arthritis. There are findings suspicious for tiny erosions at the dorsal edges of the 3rd metatarsal head and proximal phalanx base. Impression: Acute arthritis of the 3rd metatarsophalangeal joint with diffuse synovitis, bone marrow edema and probable tiny erosions. Differential diagnosis includes crystal deposition, inflammatory inflammatory, traumatic and infectious arthritis. Dictated by Rodolfo Salcedo MD @ 05/04/2024 1:26:38 PM (Electronically Signed)
== END 2024-05-03 15:17 | disposition home or self-care (01) ==
LOC: MRI 15:16
PROVIDERS: PCP Family Medicine; Visit Provider Family Medicine
DX: M79.674 Pain in right toe(s) (principal); M19.071 Primary osteoarthritis, right ankle and foot
CPT/HCPCS: 73718

== ENCOUNTER 2024-09-28 08:43 | Outpatient (CLI) | payer BC, SELFPAY | END 2024-09-28 08:44 | disposition home or self-care (01) | LOC: NFLDREF 09-30 03:07 | PROVIDERS: PCP Family Medicine; Referring Provider Family Medicine; Visit Provider Family Medicine | DX: E78.5 Hyperlipidemia, unspecified (principal); M10.9 Gout, unspecified; I10 Essential (primary) hypertension | CPT/HCPCS: 80053; 80061; 84550 ==

== ENCOUNTER 2024-12-26 10:14 | Outpatient (CLI) | payer BC, SELFPAY ==
--- NOTE | 2024-12-26 11:28 | P.ANES_ITS ---
Anesthesia Charges Start Date/Time Anesthesia Start Date: 12/26/24 Anesthesia Start Time: 10:58 Stop Date/Time Anesthesia Stop Date: 12/26/24 Anesthesia Stop Time: 11:25 Coding CPT Codes CPT Codes: ANES LWR INTST NDSC NOS - 47431 ([id number]) P3 - PATIENT W/SEVERE SYS DISEASE, QK - DEVICE PROCESSING ENGINEER 2-4 CNCRNT ANES PROC, QX - VETERINARY MILK SPECIALIST SVC W/ MD MED DIRECTION
--- NOTE | 2024-12-26 11:28 | W.ANESCHARGE ---
Anesthesia Charges Start Date/Time Anesthesia Start Date: 12/26/24 Anesthesia Start Time: 10:58 Stop Date/Time Anesthesia Stop Date: 12/26/24 Anesthesia Stop Time: 11:25 Coding CPT Codes CPT Codes: ANES LWR INTST NDSC NOS - 68703 ([id number]) P3 - PATIENT W/SEVERE SYS DISEASE, QK - DIRECTOR OF ENTERPRISE APPLICATIONS 2-4 CNCRNT ANES PROC, QX - FOOTWEAR PRODUCTION MACHINE OPERATOR SVC W/ MD MED DIRECTION
--- NOTE | 2024-12-26 12:49 | P.ANES_ITS ---
Anesthesia Charges Start Date/Time Anesthesia Start Date: 12/26/24 Anesthesia Start Time: 10:58 Stop Date/Time Anesthesia Stop Date: 12/26/24 Anesthesia Stop Time: 11:25 Coding CPT Codes CPT Codes: ANES LWR INTST NDSC NOS - 93208 ([id number]) P3 - PATIENT W/SEVERE SYS DISEASE, QK - STEAMBOAT INSPECTOR 2-4 CNCRNT ANES PROC, QX - CHIEF OPERATOR REFORMER SVC W/ MD MED DIRECTION
--- NOTE | 2024-12-26 12:49 | W.ANESCHARGE ---
Anesthesia Charges Start Date/Time Anesthesia Start Date: 12/26/24 Anesthesia Start Time: 10:58 Stop Date/Time Anesthesia Stop Date: 12/26/24 Anesthesia Stop Time: 11:25 Coding CPT Codes CPT Codes: ANES LWR INTST NDSC NOS - 36075 ([id number]) P3 - PATIENT W/SEVERE SYS DISEASE, QK - WALLPAPER PRINTER 2-4 CNCRNT ANES PROC, QX - DATA CODER OPERATOR SVC W/ MD MED DIRECTION
== END 2024-12-26 10:15 | disposition home or self-care (01) ==
LOC: OP CLINIC 10:14
PROVIDERS: PCP Family Medicine; Visit Provider Surgery
DX: Z12.11 Encounter for screening for malignant neoplasm of colon (principal); D12.8 Benign neoplasm of rectum
CPT/HCPCS: 00811; 00812; 45385; 88305; J2704